=== PATIENT | male | born 1950 | race Two or more races ===

== ENCOUNTER → 2019-05-01 | Outpatient (CLI) | payer MEDICARE, MEDICAID ==
[2019-05-01 11:44] LABS: Cholesterol 221 mg/dL (< 200); HDL Cholesterol 58 mg/dL (40-59); LDL Cholesterol 136 mg/dL (< 100); Triglycerides 166 mg/dL (< 150)
== END | disposition home or self-care (01) ==
LOC: LAB 10:52
PROVIDERS: ATTEND Internal Medicine
DX: J44.9 Chronic obstructive pulmonary disease, unspecified (principal); N18.2 Chronic kidney disease, stage 2 (mild); R06.02 Shortness of breath; R73.03 Prediabetes; E78.5 Hyperlipidemia, unspecified; E55.9 Vitamin D deficiency, unspecified; Z51.81 Encounter for therapeutic drug level monitoring; Z12.11 Encounter for screening for malignant neoplasm of colon
CPT/HCPCS: 36415; 80061; 82306; 83036; 84153

== ENCOUNTER → 2019-05-07 | Outpatient (CLI) | payer MEDICARE, MEDICAID ==
[2019-05-07 12:07] LABS: Urine Bacteria NONE SEEN /hpf (None Seen); Urine Blood Negative /uL (Negative); Urine Specific Gravity 1.013 (1.001-1.035); Urine WBC <1 /hpf (0 - 3)
== END | disposition home or self-care (01) ==
LOC: LAB 11:50
PROVIDERS: ATTEND Internal Medicine
DX: Z12.11 Encounter for screening for malignant neoplasm of colon (principal); J44.9 Chronic obstructive pulmonary disease, unspecified; N18.2 Chronic kidney disease, stage 2 (mild)
CPT/HCPCS: 81001; 82270

== ENCOUNTER → 2019-11-14 | Outpatient (CLI) | payer MEDICAID, MEDICARE | END | disposition home or self-care (01) | LOC: XYW 09:56 | PROVIDERS: ATTEND Internal Medicine | DX: I08.2 Rheumatic disorders of both aortic and tricuspid valves (principal); R60.0 Localized edema | CPT/HCPCS: 93306 ==

== ENCOUNTER → 2019-11-26 | Outpatient (CLI) | payer MEDICARE ==
[2019-11-26 12:18] LABS: Basophils # (auto) 0.1 10 ^3/uL (0-0.2); Eosinophils # (auto) 0.4 10 ^3/uL (0-0.8); Eosinophils % (auto) 7.2 % (0.0-7.0); Hematocrit 42.5 % (41.0-53.0); Hemoglobin 14.1 g/dL (13.5-17.5); Lymphocytes # (auto) 1.4 10 ^3/uL (0.4-5.4); Lymphocytes % (auto) 26.1 % (10.0-50.0); Mean Corpuscular Hemoglobin 31.6 pg (28.0-32.0); Mean Corpuscular Hgb Conc. 33.2 g/dL (32.0-36.0); Mean Corpuscular Volume 95.1 fL (80.0-100.0); Monocytes # (auto) 0.5 10 ^3/uL (0-1.3); Neutrophils # (auto) 2.9 10 ^3/uL (1.6-8.6); Neutrophils % (auto) 55.7 % (37.0-80.0); Nucleated Red Blood Cells % 0.1 %; Platelet Count (auto) 166 10^3/uL (140-450); Red Blood Cells 4.47 10^6/uL (4.5-5.90); Red Cell Distribution Width 13.2 % (11.8-14.3); White Blood Cell 5.2 10^3/uL (4.4-10.8)
[2019-11-26 12:38] LABS: Albumin 3.7 g/dL (3.4-5.0); Calcium 8.5 mg/dL (8.5-10.1)
[2019-11-26 12:43] LABS: BUN/Creatinine Ratio 19.1; Bilirubin, Total 0.6 mg/dL (0.2-1.0)
== END | disposition home or self-care (01) ==
LOC: LAB 11:55
PROVIDERS: ATTEND Internal Medicine
DX: E78.5 Hyperlipidemia, unspecified (principal); J44.9 Chronic obstructive pulmonary disease, unspecified; R60.0 Localized edema; R73.03 Prediabetes
CPT/HCPCS: 36415; 80053; 80061; 82043; 85025

== ENCOUNTER → 2020-01-30 | Outpatient (CLI) | payer MEDICARE ==
[~2020-01-30] VITALS: Ht 170.2 cm; Wt 73.9 kg
[~2020-01-30] MED LIST: ADENOSINE 62 MG in GIVE UN-DILUTED 0 ML IV STA
== END | disposition home or self-care (01) ==
LOC: XY 08:58
PROVIDERS: ATTEND Internal Medicine
DX: I42.9 Cardiomyopathy, unspecified (principal)
CPT/HCPCS: 78452; 93017; A9500; J0153

== ENCOUNTER → 2020-02-05 | Outpatient (CLI) | payer MEDICARE | END | disposition home or self-care (01) | LOC: LAB 13:42 | PROVIDERS: ATTEND Internal Medicine | DX: Z12.11 Encounter for screening for malignant neoplasm of colon (principal); R73.03 Prediabetes | CPT/HCPCS: 36415; 82043; 82270; 83036 ==

== ENCOUNTER → 2020-06-17 | Outpatient (CLI) | payer MEDICARE | END | disposition home or self-care (01) | LOC: XY 08:29 | PROVIDERS: ATTEND Internal Medicine | DX: I65.03 Occlusion and stenosis of bilateral vertebral arteries (principal) | CPT/HCPCS: 93886 ==

== ENCOUNTER 2020-10-10 07:34 | Inpatient (IN) | payer MEDICARE, MEDICAID ==
[~2020-10-10] VITALS: Ht 167.6 cm; Wt 72.6 kg
[2020-10-10] MEDS ORDERED: ASPirin 81 mg TAB PO ONE (08:15)
[2020-10-10 08:58] LABS: Basophils # (auto) 0 10 ^3/uL (0-0.2); Basophils % (auto) 0.6 % (0.0-2.0); Eosinophils # (auto) 0.4 10 ^3/uL (0-0.8); Eosinophils % (auto) 7.9 % (0.0-7.0); Hematocrit 38.3 % (41.0-53.0); Hemoglobin 13.3 g/dL (13.5-17.5); Lymphocytes # (auto) 1.2 10 ^3/uL (0.4-5.4); Lymphocytes % (auto) 25.9 % (10.0-50.0); Mean Corpuscular Hemoglobin 32.4 pg (28.0-32.0); Mean Corpuscular Hgb Conc. 34.6 g/dL (32.0-36.0); Mean Corpuscular Volume 93.5 fL (80.0-100.0); Monocytes # (auto) 0.4 10 ^3/uL (0-1.3); Monocytes % (auto) 8.7 % (0.0-12.0); Neutrophils # (auto) 2.7 10 ^3/uL (1.6-8.6); Neutrophils % (auto) 56.9 % (37.0-80.0); Platelet Count (auto) 169 10^3/uL (140-450); Red Blood Cells 4.09 10^6/uL (4.5-5.90); Red Cell Distribution Width 13.5 % (11.8-14.3); White Blood Cell 4.7 10^3/uL (4.4-10.8)
[2020-10-10 09:10] LABS: Albumin 3.5 g/dL (3.4-5.0); Anion Gap 8 (5-15); Blood Urea Nitrogen 30 mg/dL (7-18); Calcium 7.7 mg/dL (8.5-10.1); Carbon Dioxide 22 mmol/L (21-32); Chloride 108 mmol/L (98-107); Glucose 111 mg/dL (74-106); Potassium 4.5 mmol/L (3.5-5.1); Sodium 138 mmol/L (136-145)
[2020-10-10 09:13] LABS: Alanine Aminotransferase 19 U/L (16-61); Aspartate Aminotransferase 21 U/L (15-37); BUN/Creatinine Ratio 38.5; GFR African American 126 mL/min; GFR Non-African American 104 mL/min
[2020-10-10 09:18] LABS: Alkaline Phosphatase 84 U/L (45-117); Bilirubin, Total 0.4 mg/dL (0.2-1.0); Total Protein 6.8 g/dL (6.4-8.2)
[2020-10-10] MEDS ORDERED: MORPHINE SULF INJ 2 MG/ML SYRINGE 1ML IV PRN (10:45)
[2020-10-10] MEDS ORDERED: NITROGLYCERIN 0.4 MG SL TAB SL PRN (10:45)
[2020-10-10] MEDS ORDERED: IOHEXOL 350 MG/ML 100ML IJ ONE (11:03)
[2020-10-10 12:00] VITALS: BP 115/66
== END 2020-10-10 12:11 | disposition left against medical advice (07) | DRG 313 ==
LOC: ER 07:34 → TELE 10:34
PROVIDERS: ADMIT Internal Medicine; ATTEND Internal Medicine
DX: R07.9 Chest pain, unspecified (principal); I24.9 Acute ischemic heart disease, unspecified; E78.5 Hyperlipidemia, unspecified; J44.9 Chronic obstructive pulmonary disease, unspecified; N40.0 Benign prostatic hyperplasia without lower urinary tract symptoms; I25.5 Ischemic cardiomyopathy; R73.03 Prediabetes; M19.09 Primary osteoarthritis, other specified site; Z53.29 Procedure and treatment not carried out because of patient's decision for other reasons; Z20.822 Contact with and (suspected) exposure to COVID-19; Z87.01 Personal history of pneumonia (recurrent)
CPT/HCPCS: 36415; 71045; 71275; 80053; 84484; 85025; 85049; 87426; 93005; G0378

== ENCOUNTER 2020-10-14 22:46 | Emergency (ER) | payer MEDICARE, MEDICAID ==
[~2020-10-14] VITALS: Ht 167.6 cm; Wt 74.8 kg
[2020-10-14 23:09] LABS: Basophils # (auto) 0 10 ^3/uL (0-0.2); Lymphocytes # (auto) 1.2 10 ^3/uL (0.4-5.4); Monocytes # (auto) 0.4 10 ^3/uL (0-1.3); Neutrophils # (auto) 2.6 10 ^3/uL (1.6-8.6)
[2020-10-14 23:11] LABS: Basophils % (auto) 0.6 % (0.0-2.0); Eosinophils # (auto) 0.2 10 ^3/uL (0-0.8); Eosinophils % (auto) 5.6 % (0.0-7.0); Hematocrit 22.7 % (41.0-53.0); Lymphocytes % (auto) 26.2 % (10.0-50.0); Mean Corpuscular Hemoglobin 32.8 pg (28.0-32.0); Mean Corpuscular Hgb Conc. 35.3 g/dL (32.0-36.0); Monocytes % (auto) 8.1 % (0.0-12.0); Neutrophils % (auto) 59.5 % (37.0-80.0); Nucleated Red Blood Cells % 0.1 %; Red Blood Cells 2.44 10^6/uL (4.5-5.90); Red Cell Distribution Width 13.6 % (11.8-14.3); White Blood Cell 4.4 10^3/uL (4.4-10.8)
[2020-10-14 23:28] LABS: INR 0.99 (0.9-1.15); Partial Thromboplastin Time 24.2 sec (23.0-31.2)
[2020-10-14 23:29] LABS: Alanine Aminotransferase 17 U/L (16-61); Anion Gap 5 (5-15); Aspartate Aminotransferase 15 U/L (15-37); Blood Urea Nitrogen 31 mg/dL (7-18); Calcium 7.5 mg/dL (8.5-10.1); Carbon Dioxide 24 mmol/L (21-32); Chloride 110 mmol/L (98-107); GFR African American 102 mL/min; GFR Non-African American 84 mL/min; Glucose 112 mg/dL (74-106); Potassium 3.8 mmol/L (3.5-5.1); Sodium 139 mmol/L (136-145)
[2020-10-15 00:03] LABS: Alkaline Phosphatase 61 U/L (45-117); Bilirubin, Total 0.3 mg/dL (0.2-1.0); Total Protein 5.7 g/dL (6.4-8.2)
[2020-10-15 06:00] VITALS: BP 103/61
== END 2020-10-15 07:13 | disposition home or self-care (01) ==
LOC: ER 22:50
DX: R07.89 Other chest pain (principal); J44.9 Chronic obstructive pulmonary disease, unspecified; I25.5 Ischemic cardiomyopathy
CPT/HCPCS: 36415; 71045; 80053; 83735; 83880; 84484; 85025; 85049; 85610; 85730; 93005

== ENCOUNTER → 2020-12-02 | Outpatient (CLI) | payer MEDICARE, MEDICAID ==
[2020-12-02 09:45] LABS: Basophils # (auto) 0 10 ^3/uL (0-0.2); Eosinophils # (auto) 0.4 10 ^3/uL (0-0.8); Lymphocytes # (auto) 1.4 10 ^3/uL (0.4-5.4); Monocytes # (auto) 0.4 10 ^3/uL (0-1.3); White Blood Cell 5.3 10^3/uL (4.4-10.8)
[2020-12-02 09:47] LABS: Basophils % (auto) 0.7 % (0.0-2.0); Hematocrit 27.7 % (41.0-53.0); Hemoglobin 8.9 g/dL (13.5-17.5); Mean Corpuscular Hemoglobin 23.8 pg (28.0-32.0); Mean Corpuscular Volume 74.4 fL (80.0-100.0); Monocytes % (auto) 8.4 % (0.0-12.0); Neutrophils % (auto) 56.9 % (37.0-80.0); Red Blood Cells 3.72 10^6/uL (4.5-5.90)
[2020-12-02 09:48] LABS: Red Cell Distribution Width 24.9 % (11.8-14.3)
[2020-12-02 09:56] LABS: Urine Bacteria NONE SEEN /hpf (None Seen); Urine Blood Negative /uL (Negative); Urine Hyaline Cast FEW /lpf (0 - 2); Urine Mucus FEW (None Seen); Urine Specific Gravity 1.021 (1.001-1.035); Urine WBC 7 /hpf (0 - 3)
[2020-12-02 10:54] LABS: Potassium 4.3 mmol/L (3.5-5.1)
[2020-12-02 11:00] LABS: Albumin 3.5 g/dL (3.4-5.0); BUN/Creatinine Ratio 18.1; Bilirubin, Total 0.4 mg/dL (0.2-1.0); Calcium 7.9 mg/dL (8.5-10.1); Total Protein 6.9 g/dL (6.4-8.2)
== END | disposition home or self-care (01) ==
LOC: LAB 09:23
PROVIDERS: ATTEND Internal Medicine
DX: I11.0 Hypertensive heart disease with heart failure (principal); I50.9 Heart failure, unspecified; R42 Dizziness and giddiness; N40.1 Benign prostatic hyperplasia with lower urinary tract symptoms
CPT/HCPCS: 36415; 80053; 81001; 84153; 85025

== ENCOUNTER → 2020-12-03 | Outpatient (CLI) | payer MEDICARE, MEDICAID | END | disposition home or self-care (01) | LOC: XYW 08:45 | PROVIDERS: ATTEND Internal Medicine | DX: I08.3 Combined rheumatic disorders of mitral, aortic and tricuspid valves (principal); R94.39 Abnormal result of other cardiovascular function study | CPT/HCPCS: 93306 ==

== ENCOUNTER → 2021-01-20 | Outpatient (CLI) | payer MEDICAID, MEDICARE ==
[2021-01-20 12:49] LABS: Basophils # (auto) 0.1 10 ^3/uL (0-0.2); Basophils % (auto) 1.5 % (0.0-2.0); Eosinophils # (auto) 0.3 10 ^3/uL (0-0.8); Hematocrit 38.6 % (41.0-53.0); Hemoglobin 12.2 g/dL (13.5-17.5); Lymphocytes # (auto) 1.3 10 ^3/uL (0.4-5.4); Lymphocytes % (auto) 29.5 % (10.0-50.0); Mean Corpuscular Hemoglobin 23.4 pg (28.0-32.0); Mean Corpuscular Hgb Conc. 31.5 g/dL (32.0-36.0); Mean Corpuscular Volume 74.3 fL (80.0-100.0); Monocytes # (auto) 0.4 10 ^3/uL (0-1.3); Neutrophils # (auto) 2.5 10 ^3/uL (1.6-8.6); White Blood Cell 4.5 10^3/uL (4.4-10.8)
[2021-01-20 12:50] LABS: Red Cell Distribution Width 32.7 % (11.8-14.3)
[2021-01-20 13:08] LABS: Cholesterol 155 mg/dL (< 200); HDL Cholesterol 45 mg/dL (40-59); LDL Cholesterol 93 mg/dL (< 100); Triglycerides 108 mg/dL (< 150)
== END | disposition home or self-care (01) ==
LOC: LAB 12:28
PROVIDERS: ATTEND Internal Medicine
DX: Z12.11 Encounter for screening for malignant neoplasm of colon (principal); E55.9 Vitamin D deficiency, unspecified; E78.5 Hyperlipidemia, unspecified
CPT/HCPCS: 36415; 80061; 83036; 85025

== ENCOUNTER 2021-02-25 06:47 | Day surgery (SDC) | payer MEDICARE, MEDICAID ==
[~2021-02-25] VITALS: Ht 165.1 cm; Wt 73.5 kg
[2021-02-25] VITALS (8 sets, daily range): BP systolic 91–151; BP diastolic 59–81
[~2021-02-25 06:47] MED LIST changes: -ADENOSINE 62 MG in GIVE UN-DILUTED 0 ML IV STA; +ALBUAER3 IN; +CAR3125T PO; +FERR-7 PO; +LACT10SO70 PO; +SACU1TAB PO; +UMEC1AER IN
[2021-02-25] MEDS ORDERED: IODIXANOL 320MG/ML 100ML BTL IV ONE ×2 (07:57→08:48)
[2021-02-25] MEDS ORDERED: LIDOCAINE 2%HCL (LOCAL ANESTH.) INJ 20ML MDV ONE (07:57)
[2021-02-25] MEDS ORDERED: HEPARIN SODIUM (PORCINE) 5000 UNITS/ML 1ML VIAL ONE ×2 (08:07→08:30)
[2021-02-25] MEDS ORDERED: ANGIOMAX 250 MG VIAL IV ONE (08:07)
[2021-02-25] MEDS ORDERED: SODIUM CHL 0.9% 0 ML ONE (08:08)
[2021-02-25] MEDS ORDERED: MIDAZOLAM HCL 2MG/2ML 2ml VIAL (1mg/ml) ONE (08:08)
[2021-02-25] MEDS ORDERED: fentaNYL CITRATE 100 MCG/2 ML VL ONE (08:08)
[2021-02-25] MEDS ORDERED: VERAPAMIL 2.5MG/ML INJ 2ML VIAL IV ONE (08:08)
[2021-02-25] MEDS ORDERED: ATOR10TA PO (09:24)
[2021-02-25] MEDS ORDERED: METF-370 PO (09:24)
== END 2021-02-25 11:45 | disposition home or self-care (01) ==
LOC: CATH 06:47
PROVIDERS: ATTEND Internal Medicine
DX: R94.39 Abnormal result of other cardiovascular function study (principal); I11.0 Hypertensive heart disease with heart failure; I50.9 Heart failure, unspecified; F32.9 Major depressive disorder, single episode, unspecified; J44.9 Chronic obstructive pulmonary disease, unspecified; Z87.891 Personal history of nicotine dependence; Z20.822 Contact with and (suspected) exposure to COVID-19
CPT/HCPCS: 93458; C1769; C1887; C1894; J1644; J2250; J3010; Q9967; U0003; 99152; 99153

== ENCOUNTER → 2021-04-06 | Outpatient (CLI) | payer MEDICARE, MEDICAID ==
[~2021-04-06] MED LIST changes: +ATOR10TA PO; -LACT10SO70 PO; +METF-370 PO
[2021-04-06 11:54] LABS: Albumin 3.8 g/dL (3.4-5.0)
[2021-04-06 11:56] LABS: Bilirubin, Direct 0.1 mg/dL (0-0.2); Bilirubin, Total 0.4 mg/dL (0.2-1.0); Total Protein 6.7 g/dL (6.4-8.2)
== END | disposition home or self-care (01) ==
LOC: LAB 10:49
PROVIDERS: ATTEND Internal Medicine
DX: E11.9 Type 2 diabetes mellitus without complications (principal); E78.5 Hyperlipidemia, unspecified
CPT/HCPCS: 36415; 80061; 80076

== ENCOUNTER → 2021-04-30 | Day surgery (SDC) | payer MEDICARE, MEDICAID ==
[2021-04-27 13:29] LABS: Basophils # (auto) 0.1 10 ^3/uL (0-0.2); Basophils % (auto) 1.6 % (0.0-2.0); Eosinophils # (auto) 0.3 10 ^3/uL (0-0.8); Eosinophils % (auto) 6.8 % (0.0-7.0); Hematocrit 41.1 % (41.0-53.0); Hemoglobin 14.1 g/dL (13.5-17.5); Lymphocytes # (auto) 1.2 10 ^3/uL (0.4-5.4); Lymphocytes % (auto) 27.4 % (10.0-50.0); Mean Corpuscular Hemoglobin 29.6 pg (28.0-32.0); Mean Corpuscular Hgb Conc. 34.2 g/dL (32.0-36.0); Mean Corpuscular Volume 86.5 fL (80.0-100.0); Monocytes # (auto) 0.4 10 ^3/uL (0-1.3); Neutrophils # (auto) 2.6 10 ^3/uL (1.6-8.6); Neutrophils % (auto) 56.2 % (37.0-80.0); Nucleated Red Blood Cells % 0.1 %; Red Blood Cells 4.75 10^6/uL (4.5-5.90); Red Cell Distribution Width 14.2 % (11.8-14.3); White Blood Cell 4.5 10^3/uL (4.4-10.8)
[2021-04-27 13:30] LABS: Urine Bacteria NONE SEEN /hpf (None Seen); Urine Blood Negative /uL (Negative); Urine Specific Gravity 1.005 (1.001-1.035); Urine WBC 1 /hpf (0 - 3)
[2021-04-27 13:45] LABS: Albumin 3.8 g/dL (3.4-5.0); Potassium 4.1 mmol/L (3.5-5.1)
[2021-04-27 13:51] LABS: BUN/Creatinine Ratio 17.2; Bilirubin, Total 0.4 mg/dL (0.2-1.0); Total Protein 6.8 g/dL (6.4-8.2)
[~2021-04-30] VITALS: Ht 172.7 cm; Wt 74.4 kg
[~2021-04-30] MED LIST changes: +CIPROFLOXACIN 400MG/200ML 200 ML IV ONE; +HYDROmorphone HCL 2 MG/ML VL IV PRN; +METOCLOPRAMIDE HCL 5MG/ml INJ 2ml VIAL IV PRN; +MIDAZOLAM HCL 2MG/2ML 2ml VIAL (1mg/ml) ONE; +MORPHINE SULFATE 4 MG/ML SYR/VIAL IV PRN; +ONDANSETRON HCL 4 MG/2 ML VIAL ONE; +PROPOFOL 10 MG/ML 20 ML IV ONE; +SODIUM CHLORIDE LOCK 10 ML ONE; +fentaNYL CITRATE 100 MCG/2 ML VL ONE
[2021-04-30 15:15] VITALS: BP 136/73
== END | disposition home or self-care (01) ==
LOC: SUR 10:10
PROVIDERS: ATTEND Urology
DX: N40.1 Benign prostatic hyperplasia with lower urinary tract symptoms (principal); N13.8 Other obstructive and reflux uropathy; F32.9 Major depressive disorder, single episode, unspecified; I50.9 Heart failure, unspecified; I10 Essential (primary) hypertension; E11.9 Type 2 diabetes mellitus without complications; E78.5 Hyperlipidemia, unspecified; J44.9 Chronic obstructive pulmonary disease, unspecified; Z87.891 Personal history of nicotine dependence; Z98.41 Cataract extraction status, right eye; Z98.42 Cataract extraction status, left eye; Z20.822 Contact with and (suspected) exposure to COVID-19
CPT/HCPCS: 36415; 52441; 52442; 80053; 81001; 85025; J0744; J2250; J2405; J2704; J3010; L8699; U0003

== ENCOUNTER → 2021-05-12 | Outpatient (CLI) | payer MEDICAID, MEDICARE ==
[~2021-05-12] MED LIST changes: -CIPROFLOXACIN 400MG/200ML 200 ML IV ONE; -HYDROmorphone HCL 2 MG/ML VL IV PRN; -METOCLOPRAMIDE HCL 5MG/ml INJ 2ml VIAL IV PRN; -MIDAZOLAM HCL 2MG/2ML 2ml VIAL (1mg/ml) ONE; -MORPHINE SULFATE 4 MG/ML SYR/VIAL IV PRN; -ONDANSETRON HCL 4 MG/2 ML VIAL ONE; -PROPOFOL 10 MG/ML 20 ML IV ONE; -SODIUM CHLORIDE LOCK 10 ML ONE; -fentaNYL CITRATE 100 MCG/2 ML VL ONE
== END | disposition home or self-care (01) ==
LOC: LAB 07:41
PROVIDERS: ATTEND Surgery
DX: Z01.812 Encounter for preprocedural laboratory examination (principal)
CPT/HCPCS: 36415; 82565; 84520

== ENCOUNTER → 2021-12-07 | Outpatient (CLI) | payer MEDICARE, MEDICAID ==
[2021-12-07 12:11] LABS: Basophils # (auto) 0 10 ^3/uL (0-0.2); Basophils % (auto) 0.7 % (0.0-2.0); Eosinophils # (auto) 0.2 10 ^3/uL (0-0.8); Eosinophils % (auto) 4.4 % (0.0-7.0); Hematocrit 41.7 % (41.0-53.0); Hemoglobin 13.7 g/dL (13.5-17.5); Lymphocytes # (auto) 1.1 10 ^3/uL (0.4-5.4); Lymphocytes % (auto) 22.4 % (10.0-50.0); Mean Corpuscular Hemoglobin 30.8 pg (28.0-32.0); Mean Corpuscular Volume 93.4 fL (80.0-100.0); Monocytes # (auto) 0.4 10 ^3/uL (0-1.3); Monocytes % (auto) 8.3 % (0.0-12.0); Neutrophils # (auto) 3.1 10 ^3/uL (1.6-8.6); Neutrophils % (auto) 64.2 % (37.0-80.0); Nucleated Red Blood Cells % 0.1 %; Red Blood Cells 4.46 10^6/uL (4.5-5.90); White Blood Cell 4.9 10^3/uL (4.4-10.8)
[2021-12-07 12:29] LABS: Urine Bacteria NONE SEEN /hpf (None Seen); Urine Blood Negative /uL (Negative); Urine Specific Gravity 1.023 (1.001-1.035); Urine WBC 2 /hpf (0 - 3)
[2021-12-07 12:51] LABS: Potassium 4.1 mmol/L (3.5-5.1)
[2021-12-07 13:16] LABS: Albumin 3.4 g/dL (3.4-5.0); BUN/Creatinine Ratio 18.8; Bilirubin, Total 0.6 mg/dL (0.2-1.0); Calcium 8.1 mg/dL (8.5-10.1); Total Protein 6.6 g/dL (6.4-8.2)
== END | disposition home or self-care (01) ==
LOC: LAB 11:24
PROVIDERS: ATTEND Internal Medicine
DX: R73.03 Prediabetes (principal); M25.551 Pain in right hip
CPT/HCPCS: 36415; 80053; 81001; 82043; 83036; 85025; 85652

== ENCOUNTER → 2022-01-04 | Outpatient (CLI) | payer MEDICARE, MEDICAID | END | disposition home or self-care (01) | LOC: XYW 13:31 | PROVIDERS: ATTEND Internal Medicine | DX: I08.0 Rheumatic disorders of both mitral and aortic valves (principal); I48.91 Unspecified atrial fibrillation; J90 Pleural effusion, not elsewhere classified; I10 Essential (primary) hypertension | CPT/HCPCS: 93306 ==

== ENCOUNTER → 2022-02-08 | Outpatient (CLI) | payer MEDICARE, MEDICAID ==
[2022-02-08 12:08] LABS: Albumin 3.4 g/dL (3.4-5.0); Calcium 8.1 mg/dL (8.5-10.1); Potassium 4.4 mmol/L (3.5-5.1)
[2022-02-08 12:14] LABS: Bilirubin, Total 0.5 mg/dL (0.2-1.0); Total Protein 6.7 g/dL (6.4-8.2)
== END | disposition home or self-care (01) ==
LOC: LAB 10:48
PROVIDERS: ATTEND Internal Medicine
DX: N40.0 Benign prostatic hyperplasia without lower urinary tract symptoms (principal); E11.9 Type 2 diabetes mellitus without complications; E55.9 Vitamin D deficiency, unspecified
CPT/HCPCS: 36415; 80053; 80061; 82306; 84153

== ENCOUNTER 2022-02-24 07:07 | Day surgery (SDC) | payer MEDICARE, MEDICAID ==
[2022-02-22 13:34] LABS: Basophils # (auto) 0.1 10 ^3/uL (0-0.2); Eosinophils # (auto) 0.3 10 ^3/uL (0-0.8); Eosinophils % (auto) 4.1 % (0.0-7.0); Hematocrit 45.6 % (41.0-53.0); Hemoglobin 15.5 g/dL (13.5-17.5); Lymphocytes # (auto) 1.4 10 ^3/uL (0.4-5.4); Lymphocytes % (auto) 18.5 % (10.0-50.0); Mean Corpuscular Hemoglobin 31.8 pg (28.0-32.0); Mean Corpuscular Hgb Conc. 34.1 g/dL (32.0-36.0); Mean Corpuscular Volume 93.3 fL (80.0-100.0); Monocytes # (auto) 0.5 10 ^3/uL (0-1.3); Monocytes % (auto) 6.9 % (0.0-12.0); Neutrophils # (auto) 5.3 10 ^3/uL (1.6-8.6); Neutrophils % (auto) 69.5 % (37.0-80.0); Nucleated Red Blood Cells % 0.1 %; Red Blood Cells 4.89 10^6/uL (4.5-5.90); Red Cell Distribution Width 13.4 % (11.8-14.3); White Blood Cell 7.6 10^3/uL (4.4-10.8)
[2022-02-22 13:50] LABS: INR 0.95 (0.9-1.15); Partial Thromboplastin Time 26.3 sec (24.6-33.4)
[2022-02-22 14:10] LABS: Albumin 3.7 g/dL (3.4-5.0); BUN/Creatinine Ratio 13.8; Bilirubin, Total 0.6 mg/dL (0.2-1.0); Calcium 8.7 mg/dL (8.5-10.1); Total Protein 7.3 g/dL (6.4-8.2)
[2022-02-24] VITALS (7 sets, daily range): BP systolic 100–167; BP diastolic 61–93
[~2022-02-24] VITALS: Ht 167.6 cm; Wt 79.8 kg
[~2022-02-24 07:07] MED LIST changes: -ATOR10TA PO; -CAR3125T PO; -FERR-7 PO; -METF-370 PO
[2022-02-24] MEDS ORDERED: HEPARIN SODIUM (PORCINE) 5000 UNITS/ML 1ML VIAL ONE (13:19)
[2022-02-24] MEDS ORDERED: ANGIOMAX 250 MG VIAL IV ONE (13:19)
[2022-02-24] MEDS ORDERED: SODIUM CHL 0.9% 0 ML ONE (13:19)
[2022-02-24] MEDS ORDERED: LIDOCAINE 2%HCL (LOCAL ANESTH.) INJ 20ML MDV ONE (13:20)
[2022-02-24] MEDS ORDERED: fentaNYL CITRATE 100 MCG/2 ML VL ONE (13:21)
[2022-02-24] MEDS ORDERED: MIDAZOLAM HCL 2MG/2ML 2ml VIAL (1mg/ml) ONE (13:21)
[2022-02-24] MEDS ORDERED: IODIXANOL 320MG/ML 100ML BTL IV ONE (13:22)
== END 2022-02-24 16:44 | disposition home or self-care (01) ==
LOC: CATH 07:07
PROVIDERS: ATTEND Internal Medicine
DX: I25.9 Chronic ischemic heart disease, unspecified (principal); Z20.822 Contact with and (suspected) exposure to COVID-19
CPT/HCPCS: 36415; 80053; 85025; 85610; 85730; 93460; C1751; C1760; C1894; J1644; J2250; J3010; Q9967; U0003; 99152; 99153

== ENCOUNTER → 2022-03-31 | Day surgery (SDC) | payer MEDICARE, MEDICAID ==
[2022-03-30 15:36] LABS: Basophils # (auto) 0 10 ^3/uL (0-0.2); Basophils % (auto) 0.5 % (0.0-2.0); Eosinophils # (auto) 0.2 10 ^3/uL (0-0.8); Hematocrit 46.9 % (41.0-53.0); Hemoglobin 15.7 g/dL (13.5-17.5); Lymphocytes # (auto) 1.4 10 ^3/uL (0.4-5.4); Mean Corpuscular Hemoglobin 31.5 pg (28.0-32.0); Mean Corpuscular Hgb Conc. 33.6 g/dL (32.0-36.0); Mean Corpuscular Volume 93.9 fL (80.0-100.0); Monocytes # (auto) 0.5 10 ^3/uL (0-1.3); Monocytes % (auto) 7.1 % (0.0-12.0); Neutrophils # (auto) 4.9 10 ^3/uL (1.6-8.6); Neutrophils % (auto) 69.4 % (37.0-80.0); Nucleated Red Blood Cells % 0.1 %; Red Blood Cells 4.99 10^6/uL (4.5-5.90); Red Cell Distribution Width 13.4 % (11.8-14.3); White Blood Cell 7.1 10^3/uL (4.4-10.8)
[2022-03-30 15:47] LABS: Urine Bacteria NONE SEEN /hpf (None Seen); Urine Blood Negative /uL (Negative); Urine Specific Gravity 1.009 (1.001-1.035); Urine WBC 2 /hpf (0 - 3)
[2022-03-30 15:49] LABS: Albumin 3.7 g/dL (3.4-5.0); BUN/Creatinine Ratio 15.7; Calcium 8.9 mg/dL (8.5-10.1); Potassium 4.1 mmol/L (3.5-5.1)
[2022-03-30 15:50] LABS: INR 0.96 (0.9-1.15); Partial Thromboplastin Time 28.1 sec (24.6-33.4)
[2022-03-30 15:52] LABS: Bilirubin, Total 0.4 mg/dL (0.2-1.0); Total Protein 7.3 g/dL (6.4-8.2)
[~2022-03-31] VITALS: Ht 165.1 cm; Wt 74.4 kg
[~2022-03-31] MED LIST changes: +BUPIVACAINE IMPLANT 3x100mg IL ONE; +DexAMETHasone SOD PHOS 10MG/1ML VIAL INJ ONE; +ETOMIDATE (2MG/ML) 20ML VIAL IV ONE; +FLUT1AER17 IN; +HYDROmorphone HCL 2 MG/ML VL/or syr IV PRN; +LABETALOL HCL 5 MG/ML 4ML SYRINGE IV PRN; +LIDOCAINE 1%-Mpf/Epinephrine 1:200,000 ONE; +LIDOCAINE 2% JELLY 11ml (GLYDO) ONE; +MEPERIDINE HCL (50 MG/ML) 1 ML VIAL ONE; +MIDAZOLAM HCL 2MG/2ML 2ml VIAL (1mg/ml) IV PRN; +MIDAZOLAM HCL 2MG/2ML 2ml VIAL (1mg/ml) ONE; +MORPHINE SULFATE 4 MG/ML SYR/VIAL IV PRN; +ONDANSETRON HCL 4 MG/2 ML VIAL IV PRN; +ONDANSETRON HCL 4 MG/2 ML VIAL ONE; +PHENYLEPHRINE HCL 10 MG/ML VL IV ONE; +SUCCINYLCHOLINE CHLORIDE 20 MG/ML 10ML VIAL IV ONE; -UMEC1AER IN; +ceFAZolin 1GM/50ML 100 ML IV ONE; +ePHEDrine SULFATE 50 MG/ML AMP IV PRN; +fentaNYL CITRATE 100 MCG/2 ML VL ONE
[2022-03-31 11:45] VITALS: BP 120/69
== END | disposition home or self-care (01) ==
LOC: SUR 08:03
PROVIDERS: ATTEND Surgery
DX: K40.90 Unilateral inguinal hernia, without obstruction or gangrene, not specified as recurrent (principal); J44.9 Chronic obstructive pulmonary disease, unspecified; Z87.891 Personal history of nicotine dependence; Z20.822 Contact with and (suspected) exposure to COVID-19
CPT/HCPCS: 36415; 49505; 80053; 81001; 85025; 85610; 85730; 86850; 86900; 86901; C1781; C9089; J0330; J0690; J1100; J2175; J2250; J2405; J3010; U0003

== ENCOUNTER → 2022-06-11 | Outpatient (CLI) | payer MEDICARE, MEDICAID ==
[~2022-06-11] MED LIST changes: -BUPIVACAINE IMPLANT 3x100mg IL ONE; -DexAMETHasone SOD PHOS 10MG/1ML VIAL INJ ONE; -ETOMIDATE (2MG/ML) 20ML VIAL IV ONE; -HYDROmorphone HCL 2 MG/ML VL/or syr IV PRN; -LABETALOL HCL 5 MG/ML 4ML SYRINGE IV PRN; -LIDOCAINE 1%-Mpf/Epinephrine 1:200,000 ONE; -LIDOCAINE 2% JELLY 11ml (GLYDO) ONE; -MEPERIDINE HCL (50 MG/ML) 1 ML VIAL ONE; -MIDAZOLAM HCL 2MG/2ML 2ml VIAL (1mg/ml) IV PRN; -MIDAZOLAM HCL 2MG/2ML 2ml VIAL (1mg/ml) ONE; -MORPHINE SULFATE 4 MG/ML SYR/VIAL IV PRN; -ONDANSETRON HCL 4 MG/2 ML VIAL IV PRN; -ONDANSETRON HCL 4 MG/2 ML VIAL ONE; -PHENYLEPHRINE HCL 10 MG/ML VL IV ONE; -SUCCINYLCHOLINE CHLORIDE 20 MG/ML 10ML VIAL IV ONE; -ceFAZolin 1GM/50ML 100 ML IV ONE; -ePHEDrine SULFATE 50 MG/ML AMP IV PRN; -fentaNYL CITRATE 100 MCG/2 ML VL ONE
[2022-06-11 11:22] LABS: Albumin 3.7 g/dL (3.4-5.0); Bilirubin, Direct 0.1 mg/dL (0-0.2); Bilirubin, Total 0.5 mg/dL (0.2-1.0); Total Protein 6.9 g/dL (6.4-8.2)
== END | disposition home or self-care (01) ==
LOC: LAB 09:52
PROVIDERS: ATTEND Internal Medicine
DX: E11.9 Type 2 diabetes mellitus without complications (principal); E78.5 Hyperlipidemia, unspecified
CPT/HCPCS: 36415; 80061; 80076; 83036

== ENCOUNTER → 2022-09-14 | Outpatient (CLI) | payer MEDICARE, MEDICAID ==
[2022-09-14 08:39] LABS: Cholesterol 139 mg/dL (< 200); HDL Cholesterol 65 mg/dL (40-59); LDL Cholesterol 66 mg/dL (< 100); Triglycerides 51 mg/dL (< 150)
== END | disposition home or self-care (01) ==
LOC: LAB 07:01
PROVIDERS: ATTEND Internal Medicine
DX: E11.9 Type 2 diabetes mellitus without complications (principal); J44.9 Chronic obstructive pulmonary disease, unspecified
CPT/HCPCS: 36415; 80061; 83036; 85379

== ENCOUNTER 2022-09-24 20:18 | Inpatient (IN) | payer MEDICARE, MEDICAID ==
[~2022-09-24] VITALS: Ht 167.6 cm; Wt 75.3 kg
[2022-09-24 21:18] LABS: Basophils # (auto) 0 10 ^3/uL (0-0.2); Basophils % (auto) 0.4 % (0.0-2.0); Eosinophils # (auto) 0 10 ^3/uL (0-0.8); Eosinophils % (auto) 0.1 % (0.0-7.0); Hematocrit 36.3 % (41.0-53.0); Hemoglobin 12.2 g/dL (13.5-17.5); Lymphocytes # (auto) 0.7 10 ^3/uL (0.4-5.4); Lymphocytes % (auto) 5.8 % (10.0-50.0); Mean Corpuscular Hemoglobin 30.2 pg (28.0-32.0); Mean Corpuscular Hgb Conc. 33.7 g/dL (32.0-36.0); Mean Corpuscular Volume 89.7 fL (80.0-100.0); Monocytes # (auto) 0.7 10 ^3/uL (0-1.3); Monocytes % (auto) 5.8 % (0.0-12.0); Neutrophils # (auto) 10.9 10 ^3/uL (1.6-8.6); Neutrophils % (auto) 87.9 % (37.0-80.0); Red Blood Cells 4.04 10^6/uL (4.5-5.90); Red Cell Distribution Width 13.6 % (11.8-14.3); White Blood Cell 12.3 10^3/uL (4.4-10.8)
[2022-09-24 21:37] LABS: Albumin 3.6 g/dL (3.4-5.0); Calcium 8.3 mg/dL (8.5-10.1)
[2022-09-24 21:41] LABS: Bilirubin, Total 0.9 mg/dL (0.2-1.0); Total Protein 7.3 g/dL (6.4-8.2)
[2022-09-24] MEDS ORDERED: LACTATED RINGER'S 1,000 ML IV ONE (23:15)
[2022-09-24] MEDS ORDERED: ALBUTEROL SULF 2.5 MG/0.5ML(0.5%) NEB SOLN NEB ONE (23:15)
[2022-09-24] MEDS ORDERED: DexAMETHasone SOD PHOS 10MG/1ML VIAL INJ IV ONE (23:15)
[2022-09-24] MEDS ORDERED: AZITHROMYCIN 500MG/ 250ML 250 ML IV ONE (23:15)
[2022-09-24] MEDS ORDERED: cefTRIAXone 1GM/50ML D5W 50 ML IV ONE (23:15)
[2022-09-24 23:43] LABS: INR 0.97 (0.9-1.15); Partial Thromboplastin Time 28.7 sec (24.6-33.4)
[2022-09-25] VITALS (7 sets, daily range): BP systolic 101–120; BP diastolic 54–73
[2022-09-25] MEDS ORDERED: ACETAMINOPHEN 325 MG TAB PO PRN (04:15)
[2022-09-25] MEDS ORDERED: IPRATROPIUM BROM 0.5 MG/2.5ML INH SOL NEB PRN (04:15)
[2022-09-25] MEDS ORDERED: DOCUSATE SOD 100 MG CAP PO PRN (04:15)
[2022-09-25] MEDS ORDERED: ALBUTEROL SULF 2.5 MG/0.5ML(0.5%) NEB SOLN NEB PRN (04:15)
[2022-09-25] MEDS ORDERED: ONDANSETRON HCL 4 MG/2 ML VIAL IV PRN (04:15)
[2022-09-25] MEDS ORDERED: HYDROcodone-ACET 5/325MG TAB PO PRN (04:15)
[2022-09-25] MEDS ORDERED: SODIUM CHLOR 0.9% PF (SALINE LOCK) 10ML VIAL/SYR IV SCH (06:00)
[2022-09-25 06:12] LABS: Basophils # (auto) 0 10 ^3/uL (0-0.2); Basophils % (auto) 0.1 % (0.0-2.0); Eosinophils # (auto) 0 10 ^3/uL (0-0.8); Eosinophils % (auto) 0.1 % (0.0-7.0); Hematocrit 33.7 % (41.0-53.0); Hemoglobin 11.4 g/dL (13.5-17.5); Lymphocytes % (auto) 8.7 % (10.0-50.0); Mean Corpuscular Hemoglobin 30.3 pg (28.0-32.0); Mean Corpuscular Hgb Conc. 33.9 g/dL (32.0-36.0); Mean Corpuscular Volume 89.3 fL (80.0-100.0); Monocytes # (auto) 0.6 10 ^3/uL (0-1.3); Monocytes % (auto) 5.4 % (0.0-12.0); Neutrophils # (auto) 9.5 10 ^3/uL (1.6-8.6); Neutrophils % (auto) 85.7 % (37.0-80.0); Nucleated Red Blood Cells % 0.1 %; Red Blood Cells 3.78 10^6/uL (4.5-5.90); Red Cell Distribution Width 13.2 % (11.8-14.3); White Blood Cell 11.1 10^3/uL (4.4-10.8)
[2022-09-25 06:20] LABS: Albumin 3.2 g/dL (3.4-5.0); BUN/Creatinine Ratio 19.4 (10.0-20.0); Calcium 8.3 mg/dL (8.5-10.1); Potassium 3.9 mmol/L (3.5-5.1)
[2022-09-25 06:22] LABS: Bilirubin, Total 1.1 mg/dL (0.2-1.0); Total Protein 6.9 g/dL (6.4-8.2)
[2022-09-25] MEDS ORDERED: NITROGLYCERIN 0.4 MG SL TAB SL PRN (06:45)
[2022-09-25] MEDS ORDERED: MORPHINE SULFATE INJ 2 MG/ml SYRG IV PRN (06:45)
[2022-09-25] MEDS ORDERED: FAMOTIDINE (10MG/ML) 2ML VL IV SCH (10:00)
[2022-09-25] MEDS: cefTRIAXone 1GM/50ML D5W 50 ML IV SCH (21:00)
[2022-09-25] MEDS: DexAMETHasone SOD PHOS 10MG/1ML VIAL INJ IV SCH ×2 (21:40→22:00)
[2022-09-25] MEDS: AZITHROMYCIN 500MG/ 250ML 250 ML IV SCH (22:00)
[2022-09-26] VITALS (7 sets, daily range): BP systolic 103–142; BP diastolic 60–74
[2022-09-26] MEDS: DexAMETHasone SOD PHOS 10MG/1ML VIAL INJ IV SCH ×4 (00:25→21:33)
[2022-09-26 05:58] LABS: Basophils # (auto) 0 10 ^3/uL (0-0.2); Eosinophils # (auto) 0 10 ^3/uL (0-0.8); Hematocrit 33.4 % (41.0-53.0); Hemoglobin 11.4 g/dL (13.5-17.5); Lymphocytes # (auto) 0.5 10 ^3/uL (0.4-5.4); Lymphocytes % (auto) 3.8 % (10.0-50.0); Mean Corpuscular Hemoglobin 30.4 pg (28.0-32.0); Mean Corpuscular Hgb Conc. 34.1 g/dL (32.0-36.0); Mean Corpuscular Volume 89.1 fL (80.0-100.0); Monocytes # (auto) 0.4 10 ^3/uL (0-1.3); Monocytes % (auto) 2.7 % (0.0-12.0); Neutrophils # (auto) 12.1 10 ^3/uL (1.6-8.6); Neutrophils % (auto) 93.5 % (37.0-80.0); Red Blood Cells 3.75 10^6/uL (4.5-5.90); Red Cell Distribution Width 13.6 % (11.8-14.3); White Blood Cell 12.9 10^3/uL (4.4-10.8)
[2022-09-26 06:27] LABS: Potassium 4.1 mmol/L (3.5-5.1)
[2022-09-26 06:39] LABS: Albumin 2.8 g/dL (3.4-5.0); BUN/Creatinine Ratio 29.8 (10.0-20.0); Bilirubin, Total 0.4 mg/dL (0.2-1.0); Calcium 8.4 mg/dL (8.5-10.1); Total Protein 6.6 g/dL (6.4-8.2)
[2022-09-26] MEDS ORDERED: IOHEXOL 300 MG/ML 100ML BOTTLE IJ ONE (07:10)
[2022-09-26] MEDS ORDERED: FEXO-226 PO (14:32)
[2022-09-26] MEDS ORDERED: ATOR10TA52 PO (14:32)
[2022-09-26] MEDS: SODIUM CHLORIDE 0.9% 1,000 ML IV SCH (18:06)
[2022-09-26] MEDS: AZITHROMYCIN 500MG/ 250ML 250 ML IV SCH (21:34)
[2022-09-26] MEDS: cefTRIAXone 1GM/50ML D5W 50 ML IV SCH (21:34)
[2022-09-27 05:00] VITALS: BP 121/77
[2022-09-27 09:00] VITALS: BP 119/62
[2022-09-27 09:10] LABS: Carcinoembryonic Antigen 2.25 ng/mL (<5.0 OR =); Free T4 (Free Thyroxine) 0.98 ng/dL (0.89-1.76)
[2022-09-27] MEDS ORDERED: GASTROGRAFIN 120 ML SOL ONE (09:16)
[2022-09-27] MEDS: SODIUM CHLORIDE 0.9% 1,000 ML IV SCH (10:21)
[2022-09-27 12:42] VITALS: BP 127/62
[2022-09-27 17:00] VITALS: BP 122/68
[2022-09-27] MEDS: cefTRIAXone 1GM/50ML D5W 50 ML IV SCH (21:08)
[2022-09-27 22:00] VITALS: BP 145/70
[2022-09-27] MEDS: AZITHROMYCIN 500MG/ 250ML 250 ML IV SCH (22:31)
[2022-09-28 03:57] VITALS: BP 145/70
[2022-09-28 05:00] VITALS: BP 118/64
[2022-09-28 05:42] LABS: Basophils # (auto) 0 10 ^3/uL (0-0.2); Basophils % (auto) 0.1 % (0.0-2.0); Eosinophils # (auto) 0 10 ^3/uL (0-0.8); Eosinophils % (auto) 0.6 % (0.0-7.0); Hematocrit 34.1 % (41.0-53.0); Hemoglobin 11.6 g/dL (13.5-17.5); Lymphocytes # (auto) 1.1 10 ^3/uL (0.4-5.4); Lymphocytes % (auto) 14.6 % (10.0-50.0); Mean Corpuscular Hemoglobin 30.4 pg (28.0-32.0); Mean Corpuscular Volume 89.4 fL (80.0-100.0); Monocytes # (auto) 0.8 10 ^3/uL (0-1.3); Monocytes % (auto) 10.3 % (0.0-12.0); Neutrophils # (auto) 5.7 10 ^3/uL (1.6-8.6); Neutrophils % (auto) 74.4 % (37.0-80.0); Red Blood Cells 3.82 10^6/uL (4.5-5.90); Red Cell Distribution Width 13.6 % (11.8-14.3); White Blood Cell 7.7 10^3/uL (4.4-10.8)
[2022-09-28 06:00] LABS: Calcium 8.4 mg/dL (8.5-10.1); Potassium 3.8 mmol/L (3.5-5.1)
[2022-09-28 06:04] LABS: BUN/Creatinine Ratio 27.3 (10.0-20.0)
[2022-09-28 09:00] VITALS: BP 105/66
[2022-09-28] MEDS ORDERED: GASTROGRAFIN 120 ML SOL ONE (11:20)
[2022-09-28 13:15] VITALS: BP 129/69
[2022-09-28 17:00] VITALS: BP 121/75
[2022-09-28 22:00] VITALS: BP_SYST 106; BP_SYST 112; BP_DIAS 67; BP_DIAS 70
[2022-09-29 05:00] VITALS: BP 123/63
[2022-09-29 09:04] VITALS: BP_SYST 131; BP_SYST 93; BP_DIAS 63; BP_DIAS 66
[2022-09-29] MEDS ORDERED: AZITHROMYCIN 250 MG TAB PO SCH (10:00)
[2022-09-29] MEDS ORDERED: KETOROLAC TROMETH 30 MG/ML 1ML VIAL IV ONE (12:00)
[2022-09-29] MEDS ORDERED: LEVO750T8 PO (12:08)
[2022-09-29] MEDS ORDERED: TRAM50TA2 PO (12:08)
[2022-09-29 13:00] VITALS: BP 118/63
== END 2022-09-29 15:00 | disposition home or self-care (01) | DRG 190 ==
LOC: ER 20:18 → OVERFLOW 09-25 06:31 → WEST WING 09-25 10:00
PROVIDERS: ADMIT Nurse Practitioner Family; ATTEND Internal Medicine
DX: J44.1 Chronic obstructive pulmonary disease with (acute) exacerbation (principal); J18.9 Pneumonia, unspecified organism; K56.609 Unspecified intestinal obstruction, unspecified as to partial versus complete obstruction; K56.1 Intussusception; J44.0 Chronic obstructive pulmonary disease with (acute) lower respiratory infection; D72.829 Elevated white blood cell count, unspecified; E78.5 Hyperlipidemia, unspecified; I10 Essential (primary) hypertension; M47.9 Spondylosis, unspecified; I25.10 Atherosclerotic heart disease of native coronary artery without angina pectoris
CPT/HCPCS: 36415; 71045; 71250; 72148; 74177; 74250; 80048; 80053; 82378; 83615; 83880; 84439; 84443; 84484; 85025; 85610; 85730; 93005; 94640; 96365; 96368; 96375; G0378; J0696; J1100; J1885; J3490

== ENCOUNTER → 2022-10-06 | Outpatient (CLI) | payer MEDICARE, MEDICAID ==
[~2022-10-06] MED LIST changes: +ATOR10TA52 PO; +FEXO-226 PO; +LEVO750T8 PO; +TRAM50TA2 PO
[2022-10-06 10:24] LABS: Urine Bacteria NONE SEEN /hpf (None Seen); Urine Blood Negative /uL (Negative); Urine Hyaline Cast MOD /lpf (0 - 2); Urine Mucus FEW (None Seen); Urine Specific Gravity 1.022 (1.001-1.035); Urine WBC 8 /hpf (0 - 3)
== END | disposition home or self-care (01) ==
LOC: LAB 10:07
PROVIDERS: ATTEND Internal Medicine
DX: N39.0 Urinary tract infection, site not specified (principal)
CPT/HCPCS: 81001; 87086

== ENCOUNTER → 2022-10-20 | Outpatient (CLI) | payer MEDICARE, MEDICAID ==
[2022-10-20 07:17] LABS: Urine Bacteria NONE SEEN /hpf (None Seen); Urine Blood Negative /uL (Negative); Urine Specific Gravity 1.008 (1.001-1.035); Urine WBC 2 /hpf (0 - 3)
[2022-10-20 08:23] LABS: Free T4 (Free Thyroxine) 0.9 ng/dL (0.89-1.76)
[2022-10-20 08:24] LABS: Free T3 3.1 pg/mL (2.3-4.2)
== END | disposition home or self-care (01) ==
LOC: LAB 06:44
PROVIDERS: ATTEND Internal Medicine
DX: D64.9 Anemia, unspecified (principal); E78.5 Hyperlipidemia, unspecified; J44.9 Chronic obstructive pulmonary disease, unspecified; R91.8 Other nonspecific abnormal finding of lung field
CPT/HCPCS: 36415; 81001; 83615; 84439; 84443; 84481

== ENCOUNTER → 2022-11-15 | Outpatient (CLI) | payer MEDICARE, MEDICAID | END | disposition home or self-care (01) | LOC: XYW 10:34 | PROVIDERS: ATTEND Internal Medicine | DX: I08.2 Rheumatic disorders of both aortic and tricuspid valves (principal); J44.9 Chronic obstructive pulmonary disease, unspecified | CPT/HCPCS: 93306 ==

== ENCOUNTER → 2022-12-07 | Outpatient (CLI) | payer MEDICARE, MEDICAID ==
[2022-12-07 07:45] LABS: Basophils # (auto) 0 10 ^3/uL (0-0.2); Basophils % (auto) 0.6 % (0.0-2.0); Eosinophils # (auto) 0.4 10 ^3/uL (0-0.8); Eosinophils % (auto) 5.4 % (0.0-7.0); Hematocrit 38.5 % (41.0-53.0); Hemoglobin 12.6 g/dL (13.5-17.5); Lymphocytes # (auto) 1.9 10 ^3/uL (0.4-5.4); Lymphocytes % (auto) 27.5 % (10.0-50.0); Mean Corpuscular Hemoglobin 27.6 pg (28.0-32.0); Mean Corpuscular Hgb Conc. 32.7 g/dL (32.0-36.0); Mean Corpuscular Volume 84.5 fL (80.0-100.0); Monocytes # (auto) 0.9 10 ^3/uL (0-1.3); Monocytes % (auto) 12.7 % (0.0-12.0); Neutrophils # (auto) 3.7 10 ^3/uL (1.6-8.6); Neutrophils % (auto) 53.8 % (37.0-80.0); Nucleated Red Blood Cells % 0.2 %; Red Blood Cells 4.56 10^6/uL (4.5-5.90); Red Cell Distribution Width 16.2 % (11.8-14.3); White Blood Cell 6.9 10^3/uL (4.4-10.8)
[2022-12-07 08:01] LABS: INR 0.98 (0.9-1.15); Partial Thromboplastin Time 28.7 SEC (24.5-34.5); Prothrombin Time 10.3 sec (9.3-11.8)
== END | disposition home or self-care (01) ==
LOC: LAB 07:17
PROVIDERS: ATTEND Internal Medicine Pulmonary Disease
DX: J44.9 Chronic obstructive pulmonary disease, unspecified (principal); R91.8 Other nonspecific abnormal finding of lung field
CPT/HCPCS: 36415; 85025; 85610; 85730

== ENCOUNTER → 2022-12-08 | Outpatient (CLI) | payer MEDICARE, MEDICAID ==
[~2022-12-08] VITALS: Ht 157.5 cm; Wt 74.4 kg
[~2022-12-08] MED LIST changes: +LIDOCAINE 2%HCL (LOCAL ANESTH.) INJ 10ml MDV ONE; +MIDAZOLAM HCL 2MG/2ML 2ml VIAL (1mg/ml) IV ONE; +fentaNYL CITRATE 100 MCG/2 ML VL IV ONE
== END | disposition home or self-care (01) ==
LOC: XYW 08:20
PROVIDERS: ATTEND Internal Medicine Pulmonary Disease
DX: R91.8 Other nonspecific abnormal finding of lung field (principal); J44.9 Chronic obstructive pulmonary disease, unspecified; F41.8 Other specified anxiety disorders; I50.9 Heart failure, unspecified; Z87.01 Personal history of pneumonia (recurrent); Z79.51 Long term (current) use of inhaled steroids; Z72.89 Other problems related to lifestyle; Z87.891 Personal history of nicotine dependence; Z79.899 Other long term (current) drug therapy
CPT/HCPCS: 10005; 71045; 71250; 77012; J2001

== ENCOUNTER 2022-12-29 08:32 | Inpatient (IN) | payer MEDICARE, MEDICAID ==
[~2022-12-29] VITALS: Ht 172.7 cm; Wt 74.6 kg
[~2022-12-29 08:32] MED LIST changes: -LIDOCAINE 2%HCL (LOCAL ANESTH.) INJ 10ml MDV ONE; -MIDAZOLAM HCL 2MG/2ML 2ml VIAL (1mg/ml) IV ONE; -fentaNYL CITRATE 100 MCG/2 ML VL IV ONE
[2022-12-29] MEDS ORDERED: MIDAZOLAM HCL 2MG/2ML 2ml VIAL (1mg/ml) IV ONE (11:15)
[2022-12-29] MEDS ORDERED: fentaNYL CITRATE 100 MCG/2 ML VL IV ONE (11:15)
[2022-12-29] MEDS ORDERED: LIDOCAINE 2%HCL (LOCAL ANESTH.) INJ 10ml MDV ONE (11:38)
[2022-12-29] MEDS ORDERED: fentaNYL CITRATE 100 MCG/2 ML VL ONE (11:47)
[2022-12-29] MEDS ORDERED: MIDAZOLAM HCL 2MG/2ML 2ml VIAL (1mg/ml) ONE (11:47)
[2022-12-29] MEDS ORDERED: cefTRIAXone SOD 1,000 MG VL ONE (13:21)
[2022-12-29] MEDS ORDERED: NITROGLYCERIN 0.4 MG SL TAB SL PRN (14:00)
[2022-12-29] MEDS ORDERED: MORPHINE SULFATE INJ 2 MG/ml SYRG IV PRN ×2 (14:00→19:45)
[2022-12-29 17:28] VITALS: RESP 18; O2SAT 99
[2022-12-29] MEDS ORDERED: HYDROcodone-ACET 5/325MG TAB PO PRN (19:45)
[2022-12-29] MEDS ORDERED: DOCUSATE SOD 100 MG CAP PO PRN (19:45)
[2022-12-29] MEDS ORDERED: ACETAMINOPHEN 325 MG TAB PO PRN (19:45)
[2022-12-29] MEDS ORDERED: ALBUTEROL SULF 2.5 MG/0.5ML(0.5%) NEB SOLN NEB PRN (19:45)
[2022-12-29] MEDS ORDERED: ONDANSETRON HCL 4 MG/2 ML VIAL IV PRN (19:45)
[2022-12-29] MEDS ORDERED: IPRATROPIUM BROM 0.5 MG/2.5ML INH SOL NEB PRN (19:45)
[2022-12-29 20:00] VITALS: BP 135/69; PULSE 55; RESP 20; TEMP 97.7
[2022-12-29 20:41] VITALS: RESP 18; O2SAT 99
[2022-12-29] MEDS: SACUBITRIL-VALSARTAN 24mg/26mg TAB PO SCH (21:51)
[2022-12-29 22:00] VITALS: BP 135/69; PULSE 55; RESP 20; TEMP 97.7; O2SAT 94
[2022-12-29] MEDS ORDERED: ATORVASTATIN 20 MG TAB PO SCH (22:00)
[2022-12-30 05:00] VITALS: BP 129/60; PULSE 54; RESP 18; TEMP 98.2; O2SAT 97
[2022-12-30 06:54] LABS: Basophils # (auto) 0 10 ^3/uL (0-0.2); Basophils % (auto) 0.7 % (0.0-2.0); Eosinophils # (auto) 0.3 10 ^3/uL (0-0.8); Eosinophils % (auto) 5.6 % (0.0-7.0); Hematocrit 37.7 % (41.0-53.0); Hemoglobin 12.4 g/dL (13.5-17.5); Lymphocytes # (auto) 1.1 10 ^3/uL (0.4-5.4); Lymphocytes % (auto) 23.8 % (10.0-50.0); Mean Corpuscular Hemoglobin 27.3 pg (28.0-32.0); Mean Corpuscular Volume 82.6 fL (80.0-100.0); Monocytes # (auto) 0.4 10 ^3/uL (0-1.3); Monocytes % (auto) 9.8 % (0.0-12.0); Neutrophils # (auto) 2.7 10 ^3/uL (1.6-8.6); Neutrophils % (auto) 60.1 % (37.0-80.0); Nucleated Red Blood Cells % 0.1 %; Red Blood Cells 4.56 10^6/uL (4.5-5.90); Red Cell Distribution Width 17.5 % (11.8-14.3); White Blood Cell 4.6 10^3/uL (4.4-10.8)
[2022-12-30 07:58] LABS: Blood Urea Nitrogen 10 mg/dL (9-23)
[2022-12-30 07:59] LABS: Albumin 3.6 g/dL (3.2-4.8); Aspartate Aminotransferase 23 U/L (13-40)
[2022-12-30 08:00] VITALS: BP 135/69; PULSE 55; RESP 20; TEMP 97.7
[2022-12-30 08:00] LABS: Alanine Aminotransferase 14 U/L (7-40); Alkaline Phosphatase 94 U/L (46-116); Anion Gap 5 (5-15); BUN/Creatinine Ratio 10.9 (10.0-20.0); Bilirubin, Total 0.6 mg/dL (0.2-1.0); Calcium 8.5 mg/dL (8.5-10.1); Carbon Dioxide 26 mmol/L (20-30); Chloride 109 mmol/L (98-107); Glucose 91 mg/dL (74-106); Potassium 4.1 mmol/L (3.5-5.1); Sodium 140 mmol/L (136-145)
[2022-12-30 09:00] VITALS: BP 148/87; PULSE 71; RESP 20; TEMP 98.2; O2SAT 93
[2022-12-30] MEDS ORDERED: FEXOFENADINE HCL 60 MG TAB PO SCH (10:00)
[2022-12-30] MEDS: SACUBITRIL-VALSARTAN 24mg/26mg TAB PO SCH (11:17)
[2022-12-30 13:00] VITALS: BP 121/64; PULSE 57; RESP 20; TEMP 98.6; O2SAT 98
[2022-12-30 13:27] VITALS: BP 148/87; PULSE 71; RESP 20; TEMP 36.8; O2SAT 93
== END 2022-12-30 15:06 | disposition home or self-care (01) | DRG 395 ==
LOC: CT 08:32 → OVERFLOW 13:55 → WEST WING 17:30
PROVIDERS: ADMIT Radiology Diagnostic Radiology; ATTEND Family Medicine
PROC: 0DB Gastrointestinal System, Excision (ICD-10-PCS; principal; 2022-12-29)
DX: K63.89 Other specified diseases of intestine (principal); I10 Essential (primary) hypertension; E78.5 Hyperlipidemia, unspecified; J44.9 Chronic obstructive pulmonary disease, unspecified; E78.00 Pure hypercholesterolemia, unspecified
CPT/HCPCS: 10005; 36415; 74150; 76942; 77012; 80053; 85025; 85610; 85730; G0378; J0696; J2001; J2250

== ENCOUNTER → 2023-02-07 | Outpatient (CLI) | payer MEDICARE, MEDICAID ==
[2023-02-07 08:04] LABS: Basophils # (auto) 0 10 ^3/uL (0-0.2); Basophils % (auto) 0.7 % (0.0-2.0); Eosinophils # (auto) 0.4 10 ^3/uL (0-0.8); Eosinophils % (auto) 5.6 % (0.0-7.0); Hematocrit 42.4 % (41.0-53.0); Hemoglobin 13.9 g/dL (13.5-17.5); Lymphocytes # (auto) 1.6 10 ^3/uL (0.4-5.4); Lymphocytes % (auto) 24.8 % (10.0-50.0); Mean Corpuscular Hemoglobin 27.4 pg (28.0-32.0); Mean Corpuscular Hgb Conc. 32.9 g/dL (32.0-36.0); Mean Corpuscular Volume 83.3 fL (80.0-100.0); Monocytes # (auto) 0.5 10 ^3/uL (0-1.3); Monocytes % (auto) 8.6 % (0.0-12.0); Neutrophils # (auto) 3.9 10 ^3/uL (1.6-8.6); Neutrophils % (auto) 60.3 % (37.0-80.0); Red Blood Cells 5.09 10^6/uL (4.5-5.90); Red Cell Distribution Width 17.9 % (11.8-14.3); White Blood Cell 6.4 10^3/uL (4.4-10.8)
[2023-02-07 08:54] LABS: Creatinine, Urine 109.67 mg/dL (30.0-125.0)
[2023-02-07 09:03] LABS: Alanine Aminotransferase 20 U/L (7-40); Albumin 4.3 g/dL (3.2-4.8); Alkaline Phosphatase 101 U/L (46-116); Anion Gap 5 (5-15); Aspartate Aminotransferase 29 U/L (13-40); Bilirubin, Total 0.5 mg/dL (0.2-1.0); Blood Urea Nitrogen 11 mg/dL (9-23); Calcium 8.8 mg/dL (8.5-10.1); Carbon Dioxide 26 mmol/L (20-30); Chloride 107 mmol/L (98-107); Cholesterol 166 mg/dL (< 200); Glucose 113 mg/dL (74-106); HDL Cholesterol 63 mg/dL (40-59); LDL Cholesterol 93 mg/dL (< 100); Potassium 4.4 mmol/L (3.5-5.1); Sodium 138 mmol/L (136-145); Total Protein 6.8 g/dL (5.7-8.2); Triglycerides 95 mg/dL (< 150)
== END | disposition home or self-care (01) ==
LOC: LAB 07:41
PROVIDERS: ATTEND Internal Medicine
DX: Z12.11 Encounter for screening for malignant neoplasm of colon (principal); E11.9 Type 2 diabetes mellitus without complications; J44.9 Chronic obstructive pulmonary disease, unspecified; C49.A3 Gastrointestinal stromal tumor of small intestine
CPT/HCPCS: 36415; 80053; 80061; 82043; 82570; 83036; 84153; 85025

== ENCOUNTER → 2023-02-24 | Outpatient (CLI) | payer MEDICARE, MEDICAID ==
[2023-02-24 07:41] LABS: Basophils # (auto) 0 10 ^3/uL (0-0.2); Basophils % (auto) 0.8 % (0.0-2.0); Eosinophils # (auto) 0.3 10 ^3/uL (0-0.8); Eosinophils % (auto) 6.3 % (0.0-7.0); Hematocrit 40.9 % (41.0-53.0); Hemoglobin 13.4 g/dL (13.5-17.5); Lymphocytes # (auto) 1.5 10 ^3/uL (0.4-5.4); Lymphocytes % (auto) 29.8 % (10.0-50.0); Mean Corpuscular Hemoglobin 27.7 pg (28.0-32.0); Mean Corpuscular Hgb Conc. 32.8 g/dL (32.0-36.0); Mean Corpuscular Volume 84.6 fL (80.0-100.0); Monocytes # (auto) 0.5 10 ^3/uL (0-1.3); Monocytes % (auto) 10.4 % (0.0-12.0); Neutrophils # (auto) 2.6 10 ^3/uL (1.6-8.6); Neutrophils % (auto) 52.7 % (37.0-80.0); Nucleated Red Blood Cells % 0.1 %; Red Blood Cells 4.83 10^6/uL (4.5-5.90); Red Cell Distribution Width 18.2 % (11.8-14.3); White Blood Cell 4.9 10^3/uL (4.4-10.8)
[2023-02-24 08:01] LABS: Alanine Aminotransferase 19 U/L (7-40); Albumin 4.3 g/dL (3.2-4.8); Alkaline Phosphatase 96 U/L (46-116); Anion Gap 6 (5-15); Aspartate Aminotransferase 27 U/L (13-40); BUN/Creatinine Ratio 16.8 (10.0-20.0); Bilirubin, Total 0.5 mg/dL (0.2-1.0); Blood Urea Nitrogen 16 mg/dL (9-23); Carbon Dioxide 27 mmol/L (20-30); Chloride 106 mmol/L (98-107); Glucose 116 mg/dL (74-106); Potassium 4.6 mmol/L (3.5-5.1); Sodium 139 mmol/L (136-145); Total Protein 6.7 g/dL (5.7-8.2)
== END | disposition home or self-care (01) ==
LOC: LAB 06:41
PROVIDERS: ATTEND Internal Medicine
DX: E11.9 Type 2 diabetes mellitus without complications (principal); I48.91 Unspecified atrial fibrillation; J44.9 Chronic obstructive pulmonary disease, unspecified; Z79.899 Other long term (current) drug therapy
CPT/HCPCS: 36415; 80053; 82306; 82607; 84443; 85025

== ENCOUNTER 2023-03-09 09:00 | Outpatient (CLI) | payer MEDICARE, MEDICAID ==
[~2023-03-09] VITALS: Ht 162.6 cm; Wt 73.9 kg
[2023-03-09] MEDS ORDERED: ADENOSINE 62 MG in GIVE UN-DILUTED 0 ML IV ONE (09:45)
== END 2023-03-09 15:59 | disposition home or self-care (01) ==
LOC: XYW 09:00
DX: Z01.810 Encounter for preprocedural cardiovascular examination (principal); I25.9 Chronic ischemic heart disease, unspecified; I35.1 Nonrheumatic aortic (valve) insufficiency; I48.91 Unspecified atrial fibrillation; I25.10 Atherosclerotic heart disease of native coronary artery without angina pectoris
CPT/HCPCS: 78452; 93017; A9500; J0153

== ENCOUNTER 2024-03-02 17:06 | Emergency (ER) | payer MEDICARE, MEDICAID ==
[~2024-03-02] VITALS: Ht 165.1 cm; Wt 76.0 kg
--- NOTE | 2024-03-02 18:39 | ED.PDOC ---
Eye-HPI HPI Comments 73-year-old male who came to ER for eye problems. Patient was doing some gardening yesterday, when some sand and rocks splattered over his left eye. Noted blurring of vision to left eye. Noted redness, swelling and pain of the left eye. Patient states he feels something inside his left eye. Chief Complaint: Eye Problem Time Seen by MD: 18:36 Primary Care Provider: FAITH Wellington Notes: Nurses Notes Allergies: Coded Allergies: No Known Drug Allergy (Verified Allergy, Unknown, 02/23/21) Home Meds Active Scripts Tramadol Hcl (Tramadol Hcl) 50 Mg Tab, 50 MG PO TIDP PRN for 7 Days, #21 TAB Prov:CHRIS RIVERA MD 09/29/22 Levofloxacin (Levaquin 750 mg) 750 Mg Tab, 500 MG PO DAILY for 7 Days, #7 TAB Prov:CHRIS RIVERA MD 09/29/22 Reported Medications Fexofenadine Hcl (Fexofenadine Hcl) 60 Mg Tab, 180 MG PO DAILY for 30 Days, MG 09/26/22 Atorvastatin Calcium (ATORVASTATIN CALCIUM) 10 Mg Tab, 1 TAB PO DAILY, #30 TAB 5 Refills 09/26/22 Vasljtyotjy-Koxgumhxddyx-Pelot (Trelegy Ellipta 200-62.5-25 Mcg/INH) 1 Aer Aer, 1 AER IN DAILY, AER 03/30/22 Albuterol Sulfate (VENTOLIN MDI) 90 Mcg Ih, 180 MCG IN Q4HPRN PRN for SHORTNESS OF BREATH, INH 02/23/21 Sacubitril-Valsartan (Entresto 24-26 mg) 1 Tab Tab, 1 TAB PO BID, TAB 02/23/21 Information Source: Patient Mode of Arrival: Ambulatory Timing: Hours Duration: Since onset Quality: Pain, Red, FB sensation, Visual Loss Eye Location: Left Lids: Red, Swelling Conjunctiva: Swelling, Foreign Body Cornea: Left eye Mouth: Normal ENT Ear Exam: Normal Nose: Normal Sinuses: Normal Oropharynx: Normal Onset: FB Exposure Associated signs and symptoms: Tearing Past Medical History PAST MEDICAL HISTORY: Asthma, COPD, High Lipids Surgical History: Denies all surgeries Family History Family History: Reviewed,noncontributory to illness Social History Smoker: Non-Smoker Alcohol: Denies ETOH Use Drugs: Denies Drug Use Lives In: Home Constitutional: denies: chills, diaphoresis, fatigue, fever, malaise, sweats, weakness, others EENTM: reports: blurred vision, eye pain (left); denies: double vision, ear bleeding, ear discharge, ear drainage, ear pain, ear ringing, eye redness, hearing loss, mouth pain, mouth swelling, nasal discharge, nose bleeding, nose congestion, nose pain, photophobia, tearing, throat pain, throat swelling, voice changes, others Respiratory: denies: cough, hemoptysis, orthopnea, SOB at rest, shortness of breath, SOB with excertion, stridor, wheezing, others Cardiovascular: denies: chest pain, dizzy spells, diaphoresis, Dyspnea on exertion, edema, irregular heart beat, left arm pain, lightheadedness, palpitations, PND, syncope, others Gastrointestinal: denies: abdomen distended, abdominal pain, blood streaked bowels, constipated, diarrhea, dysphagia, difficulty swallowing, hematemesis, melena, nausea, poor appetite, poor fluid intake, rectal bleeding, rectal pain, vomiting, others Genitourinary: denies: burning, dysuria, flank pain, frequency, hematuria, incontinence, penile discharge, penile sore, pain, testicle pain, testicle swelling, urgency, others Neurological: denies: dizziness, fainting, headache, left sided numbness, left sided weakness, numbness, paresthesia, pre-existing deficit, right sided numbness, right sided weakness, seizure, speech problems, tingling, tremors, weakness, others Musculoskeletal: denies: back pain, gout, joint pain, joint swelling, muscle pain, muscle stiffness, neck pain, others Integumetry: denies: bruises, change in color, change in hair/nails, dryness, laceration, lesions, lumps, rash, wounds, others Allergic/Immunocompromised: denies: Difficulty Healing, Frequent Infections, Hives, Itching, others Hematologic/Lymphatic: denies: anemia, blood clots, easy bleeding, easy bruising, swollen glands, others Endocrine: denies: excessive hunger, excessive sweating, excessive thirst, excessive urination, flushing, intolerance to cold, intolerance to heat, unexplained weight gain, unexplained weight loss, others Psychiatric: denies: anxiety, bipolar disorder, depression, hopeless, panic disorder, schizophrenia, sleepless, suicidal, others Physical Exam General Appearance: No Apparent Distress, Normal HEENT: Cornea (L) (abrasion), Eye Lid (L) (red. swollen), Pharynx Normal, TMs Normal Neck: Full Range of Motion, Non-Tender, Normal, Normal Inspection Respiratory: Chest Non-Tender, Lungs Clear, No Accessory Muscle Use, No Respiratory Distress, Normal Breath Sounds Cardiovascular: No Edema, No JVD, No Murmur, No Gallop, Normal Peripheral Pulses, Regular Rate/Rhythm Breast Exam: Deferred Gastrointestinal: No Organomegaly, Non Tender, No Pulsatile Mass, Normal Bowel Sounds, Soft Genitalia: Deferred Pelvic: Deferred Rectal: Deferred Extremities: No calf tenderness, Normal capillary refill, Normal inspection, Normal range of motion, Non-tender, No pedal edema Musculoskeletal : Apperance: Normal Neurologic: Alert, dock coordinator II-XII nml as Tested, No Motor Deficits, Normal Affect, Normal Mood, No Sensory Deficits Cerebellar Function: Normal Reflexes: Normal Skin: Dry, Normal Color, Warm Lymphatic: No Adenopathy Was a procedure done? Was a procedure done?: Yes Sedation Sedation?: No Foreign Body Removal Foreign body in: Eye (left) Anesthetic: Other (Tetracaine) Prep: Irrigation Procedure: Identified (sand), Removed Informed consent obtained: Yes Risks/benefits/alt described: Yes EENT DIFF Eye: Corneal Abrasion, Corneal Lacerations, Foreign Body-Conjunctiva, Foreign Body-Corneal, Foreign Body-Lid Ear: N/A Nose: N/A Mouth: N/A Sore Throat: N/A X-Ray, Labs, Meds, VS Vital Signs Date Time Temp Pulse Resp B/P (MAP) Pulse Ox O2 Delivery O2 Flow Rate FiO2 03/02/24 17:13 98.0 70 18 160/85 (110) 95 Time of 1ST Reevaluation: 18:32 Reevaluation 1ST: Unchanged Patient Education/Counseling: Diagnosis, Treatment Family Education/Counseling: Diagnosis, Treatment Departure 1 Departure Time of Disposition: 19:03 (Performed a flourescin exam on patient and he has a small corneal abrasion. Patient had a few grains of sand in his eye that I irrigated out. Will dischare with eye antibiotics and outpatient follow up.) Impression: Primary Impression: Corneal abrasion Qualified Codes: S05.02XA - Injury of conjunctiva and corneal abrasion without foreign body, left eye, initial encounter Disposition: HOME / SELF CARE / HOMELESS Condition: Stable Additional Instructions: You have a corneal abrasion. This is a scratch of your eye. You were prescribed antibiotic ointment. Please take as directed. You should follow up with an eye doctor this week. If your symptoms worsen or you have any other concerns then please return to the ER. e-Prescriptions Erythromycin (Erythromycin) 5 Mg/Gm Oin 1 MG OP QID for 5 Days, #20 OIN Prov: KARLA MATHEWS MD 03/02/24 Discharged With: Spouse Critical Care Note Critical Care Time?: No Stability Stability form required: No Heart Score Heart Score: Heart Score Response (Comments) Value History N/A 0 EKG N/A 0 Age N/A 0 Risk Factors N/A 0 Troponin N/A 0 Total 0 I personally scribed for KARLA MATHEWS MD ([email or web address]) on 03/02/24 at 18:39. Electronically submitted by Ayo Leung ([email or web address]). KARLA MATHEWS MD Mar 02, 2024 18:39
[2024-03-02] MEDS ORDERED: ERY05OO OP (19:09)
[2024-03-02] MEDS: TETRACAINE HCL 0.5% OPTH(EYE) SOLN 4ML ONE (19:18)
[2024-03-02] MEDS: FLUORESCEIN SOD OPTH TEST STRIP OP ONE (19:21)
[2024-03-02] MEDS: TETRAHYDROZOLINE HCL 0.05% OPTH(EYE)SOL OP ONE (19:21)
[2024-03-02] MEDS: TETRAHYDROZOLINE HCL 0.05% OPTH(EYE)SOL EACHEYE ONE (19:22)
[2024-03-02] MEDS: PROPARACAINE HCL 0.5% OPTH(EYE) SOL 15ML OP ONE (19:23)
[2024-03-02] MEDS: ERYTHROMY OPTH OINT 5mg/gm 1gm or 3.5gm tube OP ONE (19:24)
[2024-03-02 19:30] VITALS: BP 146/66; PULSE 59; RESP 18; TEMP 98.1; O2SAT 96
== END 2024-03-02 19:30 | disposition home or self-care (01) ==
LOC: ER 17:06
DX: T15.02XA Foreign body in cornea, left eye, initial encounter (principal); E78.5 Hyperlipidemia, unspecified; J44.9 Chronic obstructive pulmonary disease, unspecified; Z79.899 Other long term (current) drug therapy

== ENCOUNTER 2024-04-21 11:36 | Emergency (ER) | payer MEDICARE, MEDICAID ==
[~2024-04-21] VITALS: Ht 167.6 cm; Wt 77.5 kg
[~2024-04-21 11:36] MED LIST changes: +ERY05OO OP
[2024-04-21] MEDS: FLUORESCEIN SOD OPTH TEST STRIP OP ONE (13:00)
[2024-04-21] MEDS: TETRACAINE HCL 0.5% OPTH(EYE) SOLN 4ML RIGHTEYE ONE (13:00)
--- NOTE | 2024-04-21 13:08 | ED.PDOC ---
Eye-HPI HPI Comments A 74 YEAR OLD MALE PRESENTS TO THE ED WITH CHIEF COMPLAINT OF EYE REDNESS AND PAIN. PATIENT REPORTS THAT WHEN CLEANING HIS YARD YESTERDAY, HE HAD ACCIDENTALLY KICKED UP DIRT AND ROCKS INTO HIS RIGHT EYE, CAUSING PAIN AND REDNESS THAT HAS LASTED TILL NOW. PATIENT DENIES ANY BLURRED VISION, VISION LOSS, HEADACHE, DIZZINESS, OR HEAD INJURY. NO OTHER SYMPTOMS REPORTED AT THIS TIME OF CARE. Chief Complaint: Eye Problem Time Seen by MD: 13:04 Primary Care Provider: FAITH Wellington Notes: Nurses Notes, Medications, Allergies Allergies: Coded Allergies: No Known Drug Allergy (Verified Allergy, Unknown, 02/23/21) Home Meds Active Scripts Tobramycin Sulfate (Tobrex) [address], 2 DROP OP QID, #5 ML Prov:NENITA HUTTON 04/21/24 Erythromycin (Erythromycin) 5 Mg/Gm Oin, 1 MG OP QID for 5 Days, #20 OIN Prov:KARLA MATHEWS MD 03/02/24 Tramadol Hcl (Tramadol Hcl) 50 Mg Tab, 50 MG PO TIDP PRN for 7 Days, #21 TAB Prov:CHRIS RIVERA MD 09/29/22 Levofloxacin (Levaquin 750 mg) 750 Mg Tab, 500 MG PO DAILY for 7 Days, #7 TAB Prov:CHRIS RIVERA MD 09/29/22 Reported Medications Fexofenadine Hcl (Fexofenadine Hcl) 60 Mg Tab, 180 MG PO DAILY for 30 Days, MG 09/26/22 Atorvastatin Calcium (ATORVASTATIN CALCIUM) 10 Mg Tab, 1 TAB PO DAILY, #30 TAB 5 Refills 09/26/22 Npdqilkuxbw-Yejdknfilxwf-Lycfl (Trelegy Ellipta 200-62.5-25 Mcg/INH) 1 Aer Aer, 1 AER IN DAILY, AER 03/30/22 Albuterol Sulfate (VENTOLIN MDI) 90 Mcg Ih, 180 MCG IN Q4HPRN PRN for SHORTNESS OF BREATH, INH 02/23/21 Sacubitril-Valsartan (Entresto 24-26 mg) 1 Tab Tab, 1 TAB PO BID, TAB 02/23/21 Information Source: Patient Mode of Arrival: Ambulatory Timing: Days Duration: Since onset Prehospital treatment: None Quality: Pain, Red, FB sensation Eye Location: Right Lids: Normal Conjunctiva: Injection, Subconjunctival hemorrhag, Foreign Body Cornea: Normal Pupils: Normal EOM: Normal Fundus: Normal Slit lamp exam: Normal Anterior chamber: Normal Nose: Normal Sinuses: Normal Oropharynx: Normal Throat Exposed to: None History of: None Last Tetanus: UTD Associated signs and symptoms: Tearing, Photophobia Past Medical History PAST MEDICAL HISTORY: Asthma, COPD, High Lipids Surgical History: Denies all surgeries Family History Family History: Reviewed,noncontributory to illness Social History Smoker: Non-Smoker Alcohol: Denies ETOH Use Drugs: Denies Drug Use Lives In: Home Constitutional: denies: chills, diaphoresis, fatigue, fever, malaise, sweats, weakness, others EENTM: reports: eye pain, eye redness; denies: blurred vision, double vision, ear bleeding, ear discharge, ear drainage, ear pain, ear ringing, hearing loss, mouth pain, mouth swelling, nasal discharge, nose bleeding, nose congestion, nose pain, photophobia, tearing, throat pain, throat swelling, voice changes, others Respiratory: denies: cough, hemoptysis, orthopnea, SOB at rest, shortness of breath, SOB with excertion, stridor, wheezing, others Cardiovascular: denies: chest pain, dizzy spells, diaphoresis, Dyspnea on exertion, edema, irregular heart beat, left arm pain, lightheadedness, palpitations, PND, syncope, others Gastrointestinal: denies: abdomen distended, abdominal pain, blood streaked bowels, constipated, diarrhea, dysphagia, difficulty swallowing, hematemesis, melena, nausea, poor appetite, poor fluid intake, rectal bleeding, rectal pain, vomiting, others Genitourinary: denies: burning, dysuria, flank pain, frequency, hematuria, incontinence, penile discharge, penile sore, pain, testicle pain, testicle swelling, urgency, others Neurological: denies: dizziness, fainting, headache, left sided numbness, left sided weakness, numbness, paresthesia, pre-existing deficit, right sided numbness, right sided weakness, seizure, speech problems, tingling, tremors, weakness, others Musculoskeletal: denies: back pain, gout, joint pain, joint swelling, muscle pain, muscle stiffness, neck pain, others Integumetry: denies: bruises, change in color, change in hair/nails, dryness, laceration, lesions, lumps, rash, wounds, others Allergic/Immunocompromised: denies: Difficulty Healing, Frequent Infections, Hives, Itching, others Hematologic/Lymphatic: denies: anemia, blood clots, easy bleeding, easy bruising, swollen glands, others Endocrine: denies: excessive hunger, excessive sweating, excessive thirst, excessive urination, flushing, intolerance to cold, intolerance to heat, unexplained weight gain, unexplained weight loss, others Psychiatric: denies: anxiety, bipolar disorder, depression, hopeless, panic disorder, schizophrenia, sleepless, suicidal, others All Other Systems: Reviewed and Negative Physical Exam General Appearance: No Apparent Distress, Normal HEENT: Cornea (R) (WOOD LAMP EXAM: +FB AND CORNEA ABRASION, MILD RIGHT SUBCONJUNCTIVA HEMORRHAGE. ), Normal ENT Inspection, PERRL/EOMI Neck: Full Range of Motion, Non-Tender, Normal, Normal Inspection Respiratory: Chest Non-Tender, Lungs Clear, No Accessory Muscle Use, No Respiratory Distress, Normal Breath Sounds Cardiovascular: No Edema, No JVD, No Murmur, No Gallop, Normal Peripheral Pulses, Regular Rate/Rhythm Breast Exam: Deferred Gastrointestinal: No Organomegaly, Non Tender, No Pulsatile Mass, Normal Bowel Sounds, Soft Genitalia: Deferred Pelvic: Deferred Rectal: Deferred Extremities: No calf tenderness, Normal capillary refill, Normal inspection, Normal range of motion, Non-tender, No pedal edema Musculoskeletal : Apperance: Normal Neurologic: Alert, pipe caulker II-XII nml as Tested, No Motor Deficits, Normal Affect, Normal Mood, No Sensory Deficits Cerebellar Function: Normal Reflexes: Normal Skin: Dry, Normal Color, Warm Peripheral Pulses: 2+ carotid (R), 2+ carotid (L) Lymphatic: No Adenopathy Was a procedure done? Was a procedure done?: Yes Sedation Sedation?: No Foreign Body Removal Foreign body in: Eye Anesthetic: Other (TETRACAINE) Prep: Prep, Saline, Irrigation (RIGHT WYE WITH NORMAL SALINE 50ML. ) Procedure: Identified (FB OF RIGHT EYE CORNEA. ), Removed (FB OF RIGHT EYE WITH A NEEDLE SCRAPING, TOTAL FB REMOVED. ) Informed consent obtained: No Risks/benefits/alt described: Yes Notes TINY FOREIGN BODY FOUND USING SLIT LAMP. USED 18G NEEDLE SCRAPING AND REMOVED FOREIGN BODY FROM CORNEA. EENT DIFF Eye: Conjunctivitis, Corneal Abrasion, Foreign Body-Conjunctiva, Foreign Body-Corneal X-Ray, Labs, Meds, VS Vital Signs Date Time Temp Pulse Resp B/P (MAP) Pulse Ox O2 Delivery O2 Flow Rate FiO2 04/21/24 11:49 98.2 83 8 145/82 (103) 96 X-Ray, Labs, Meds, VS Comment EXTERNAL MEDICAL RECORDS REVIEWED: [NONE] INDEPENDENT HISTORIANS: [NONE] SOCIAL DETERMINANTS OF HEALTH: [NONE] LABS ORDERED: NONE REVIEWED AND INTERPRETED RESULTS: NONE IMAGING ORDERED: NONE TREATMENTS ORDERED: SLIT LAMP TEST WITH TETRACAINE 0.5% EYE DROP AND FLUORESCEIN EYE DROP. PROCEDURES PERFORMED: NONE CRITICAL CARE TIME: NONE I HAVE DISCUSSED THE PATIENT WITH THE ATTENDING PHYSICIAN [PHYSICIAN'S NAME] AND HE AGREES WITH THE PATIENT'S PLAN OF CARE AND DISPOSITION. GIVEN THE HISTORY AND PRESENT ILLNESS OF THE PATIENT, AFTER REVIEWING LABS, IMAGING, AND COURSE OF TREATMENT ADMINISTERED DURING THEIR ED VISIT, THERE IS LOW SUSPICION FOR RED FLAG FINDINGS. BASED ON HISTORY OF PRESENT ILLNESS, AND PHYSICAL EXAM, PATIENT WILL BE DISCHARGED HOME. DISCUSSED PLAN FOR DISCHARGE HOME WITH RX []. MEDICATION WARNINGS GIVEN. SHARED DECISION MAKING: DISCUSSED WITH PATIENT THAT THEIR WORKUP WAS NORMAL. PATIENT INSTRUCTED TO FOLLOW UP WITH PRIMARY CARE PROVIDER IN 1-2 DAYS FOR RE- EVALUATION OF SYMPTOMS. PATIENT VERBALIZES UNDERSTANDING TO RETURN TO ED FOR NEW OR WORSENING SYMPTOMS OR IF FOLLOW UP WITH PCP CANNOT BE OBTAINED. PATIENT FEELS COMFORTABLE GOING HOME AT THIS TIME. ALL QUESTIONS ADDRESSED AT TIME OF DISCHARGE. Time of 1ST Reevaluation: 13:48 Reevaluation 1ST: Improved Patient Education/Counseling: Diagnosis, Treatment, Need For Follow Up Family Education/Counseling: Diagnosis, Treatment, No Family Present Medical Screening: No EMC Exist At This Time Departure 1 Departure Time of Disposition: 14:00 Impression: Primary Impression: Corneal abrasion Qualified Codes: S05.01XA - Injury of conjunctiva and corneal abrasion without foreign body, right eye, initial encounter Additional Impression: History of foreign body in eye Disposition: HOME / SELF CARE / HOMELESS Condition: Stable Additional Instructions: FOLLOW-UP WITH PCP IN 1 TO 2 DAYS. TAKE MEDICATIONS PRESCRIBED. RETURN TO ED FOR ANY NEW OR WORSENING SYMPTOMS. e-Prescriptions Tobramycin Sulfate (Tobrex) [address] 2 DROP OP QID, #5 ML Prov: NENITA HUTTON 04/21/24 Discharged With: Self Critical Care Note Critical Care Time?: No Stability Stability form required: No Heart Score Heart Score: Heart Score Response (Comments) Value History N/A 0 EKG N/A 0 Age N/A 0 Risk Factors N/A 0 Troponin N/A 0 Total 0 I personally scribed for NENITA HUTTON ([email or web address]) on 04/21/24 at 13:08. Electronically submitted by Lucien Vargas ([email or web address]). I personally scribed for NENITA HUTTON ([email or web address]) on 04/21/24 at 13:12. Electronically submitted by Lucien Vargas ([email or web address]). I personally scribed for NENITA HUTTON ([email or web address]) on 04/21/24 at 13:38. Electronically submitted by Lucien Vargas ([email or web address]). NENITA HUTTON Apr 21, 2024 13:08
[2024-04-21] MEDS ORDERED: TOB03OS OP (13:38)
[2024-04-21 13:55] VITALS: BP 140/80; PULSE 83; RESP 16; TEMP 98.2; O2SAT 97
== END 2024-04-21 13:49 | disposition home or self-care (01) ==
LOC: ER 11:44
DX: S05.01XA Injury of conjunctiva and corneal abrasion without foreign body, right eye, initial encounter (principal); J44.89 Other specified chronic obstructive pulmonary disease; Z79.899 Other long term (current) drug therapy; E78.5 Hyperlipidemia, unspecified; Z98.890 Other specified postprocedural states; W44.F9XA Other object of natural or organic material, entering into or through a natural orifice, initial encounter; Y93.89 Activity, other specified; Y92.89 Other specified places as the place of occurrence of the external cause; Y99.8 Other external cause status
CPT/HCPCS: 65222

== ENCOUNTER 2024-04-29 00:27 | Emergency (ER) | payer MEDICARE, MEDICAID ==
[~2024-04-29] VITALS: Ht 167.6 cm; Wt 76.7 kg
[~2024-04-29 00:27] MED LIST changes: +TOB03OS OP
--- NOTE | 2024-04-29 01:10 | ECG ---
[facility] Test Date: 2024-04-29 Test Time: 00:50:15 Pat Name: DARRIAN SUBRAMANIAN Department: ER Room: Gender: M [employer]er [employer]: MILDRED : 1950 Requested By: CHRISTY RAWLS Order Number: [id number] Reading MD: Measurements Intervals [place] Rate: 78 P: 55 DE: 170 QRS: -31 QRSD: 88 T: 34 QT: 365 QTc: 416 Interpretive Statements Sinus rhythm Left ventricular hypertrophy Nonspecific T abnormalities, lateral leads Please click the below link to view image of tracing.
[2024-04-29] MEDS: ALBUTEROL SULF 2.5 MG/0.5ML(0.5%) NEB SOLN NEB ONE (01:15)
[2024-04-29] MEDS: IPRATROPIUM BROM 0.5 MG/2.5ML INH SOL NEB ONE (01:15)
--- NOTE | 2024-04-29 02:29 | ED.PDOC ---
History of Present Illness HPI Comments 74-year-old male who came to ER for flu like symptoms. Patient has been in experiencing flu-like symptoms for the past several days, with dry nonproductive cough with congestion and shortness a breath. Denies any acute chest pains. Patient has history of recent pneumonia and he is concerned that he might get it again. Patient confirms nausea as well as possible subjective fever. Patient denies any vomiting. Vital signs were stable on arrival. Chief Complaint: Flu like Time Seen by MD: 02:29 Primary Care Provider: FAITH Reviewed Notes: Nurses Notes Allergies: Coded Allergies: No Known Drug Allergy (Verified Allergy, Unknown, 02/23/21) Home Meds Active Scripts Tobramycin Sulfate (Tobrex) [address], 2 DROP OP QID, #5 ML Prov:NENITA HUTTON 04/21/24 Erythromycin (Erythromycin) 5 Mg/Gm Oin, 1 MG OP QID for 5 Days, #20 OIN Prov:KARLA MATHEWS MD 03/02/24 Tramadol Hcl (Tramadol Hcl) 50 Mg Tab, 50 MG PO TIDP PRN for 7 Days, #21 TAB Prov:CHRIS RIVERA MD 09/29/22 Levofloxacin (Levaquin 750 mg) 750 Mg Tab, 500 MG PO DAILY for 7 Days, #7 TAB Prov:CHRIS RIVERA MD 09/29/22 Reported Medications Fexofenadine Hcl (Fexofenadine Hcl) 60 Mg Tab, 180 MG PO DAILY for 30 Days, MG 09/26/22 Atorvastatin Calcium (ATORVASTATIN CALCIUM) 10 Mg Tab, 1 TAB PO DAILY, #30 TAB 5 Refills 09/26/22 Qnursyzezqt-Fieqjmezlfyy-Zjyou (Trelegy Ellipta 200-62.5-25 Mcg/INH) 1 Aer Aer, 1 AER IN DAILY, AER 03/30/22 Albuterol Sulfate (VENTOLIN MDI) 90 Mcg Ih, 180 MCG IN Q4HPRN PRN for SHORTNESS OF BREATH, INH 02/23/21 Sacubitril-Valsartan (Entresto 24-26 mg) 1 Tab Tab, 1 TAB PO BID, TAB 02/23/21 Information Source: Patient, Spouse Mode of Arrival: Ambulatory Severity: Moderate Timing: Hours Duration: Since onset Prehospital treatment: None Past Medical History PAST MEDICAL HISTORY: Asthma, CAD, COPD, High Lipids Past Medical History (Other): Pneumonia Surgical History: Hernia Repair, PTCA, Denies all surgeries Family History Family History: Reviewed,noncontributory to illness Social History Smoker: Non-Smoker Alcohol: Denies ETOH Use Drugs: Denies Drug Use Lives In: Home Constitutional: reports: weakness; denies: chills, diaphoresis, fatigue, fever, malaise, sweats, others EENTM: reports: nose congestion; denies: blurred vision, double vision, ear bleeding, ear discharge, ear drainage, ear pain, ear ringing, eye pain, eye redness, hearing loss, mouth pain, mouth swelling, nasal discharge, nose bleeding, nose pain, photophobia, tearing, throat pain, throat swelling, voice changes, others Respiratory: reports: cough, SOB at rest, shortness of breath; denies: hemoptysis, orthopnea, SOB with excertion, stridor, wheezing, others Cardiovascular: denies: chest pain, dizzy spells, diaphoresis, Dyspnea on exertion, edema, irregular heart beat, left arm pain, lightheadedness, palpitations, PND, syncope, others Gastrointestinal: denies: abdomen distended, abdominal pain, blood streaked bowels, constipated, diarrhea, dysphagia, difficulty swallowing, hematemesis, melena, nausea, poor appetite, poor fluid intake, rectal bleeding, rectal pain, vomiting, others Genitourinary: denies: burning, dysuria, flank pain, frequency, hematuria, incontinence, penile discharge, penile sore, pain, testicle pain, testicle swelling, urgency, others Neurological: denies: dizziness, fainting, headache, left sided numbness, left sided weakness, numbness, paresthesia, pre-existing deficit, right sided numbness, right sided weakness, seizure, speech problems, tingling, tremors, weakness, others Musculoskeletal: denies: back pain, gout, joint pain, joint swelling, muscle pain, muscle stiffness, neck pain, others Integumetry: denies: bruises, change in color, change in hair/nails, dryness, laceration, lesions, lumps, rash, wounds, others Allergic/Immunocompromised: denies: Difficulty Healing, Frequent Infections, Hives, Itching, others Hematologic/Lymphatic: denies: anemia, blood clots, easy bleeding, easy bruising, swollen glands, others Endocrine: denies: excessive hunger, excessive sweating, excessive thirst, excessive urination, flushing, intolerance to cold, intolerance to heat, unexplained weight gain, unexplained weight loss, others Psychiatric: denies: anxiety, bipolar disorder, depression, hopeless, panic disorder, schizophrenia, sleepless, suicidal, others Physical Exam General Appearance: Moderate Distress (Patient presents as a moderately ill 74-year-old male.), Normal HEENT: Normal ENT Inspection, Pharynx Normal, TMs Normal Neck: Full Range of Motion, Non-Tender, Normal, Normal Inspection Respiratory: Chest Non-Tender, No Accessory Muscle Use, No Respiratory Distress, Wheezing (Mild right middle lobe wheeze as well as mild right upper lobe rhonchi.) Cardiovascular: No Edema, No JVD, No Murmur, No Gallop, Normal Peripheral Pulses, Regular Rate/Rhythm Breast Exam: Deferred Gastrointestinal: No Organomegaly, Non Tender, No Pulsatile Mass, Normal Bowel Sounds, Soft Genitalia: Deferred Pelvic: Deferred Rectal: Deferred Extremities: No calf tenderness, Normal capillary refill, Normal inspection, Normal range of motion, Non-tender, No pedal edema Musculoskeletal : Apperance: Normal Neurologic: Alert, No Motor Deficits, Normal Affect, Normal Mood, No Sensory Deficits Cerebellar Function: Normal Reflexes: Normal Skin: Dry, Normal Color, Warm Lymphatic: No Adenopathy Was a procedure done? Was a procedure done?: No Differential Dx Considerations may include: Influenza a/B, COVID-19, pneumonia, bronchitis, viral upper respiratory illness X-Ray, Labs, Meds, VS Vital Signs Date Time Temp Pulse Resp B/P (MAP) Pulse Ox O2 Delivery O2 Flow Rate FiO2 04/29/24 01:14 20 94 Room Air* 0 21 04/29/24 00:50 78 04/29/24 00:50 99.0 89 16 134/74 (94) 95 Lab Test 04/29/24 00:45 Range/Units Influenza Type A Antigen Negative Negative Influenza Type B Antigen Negative Negative SARS-CoV-2 Antigen (Rapid) Negative NEGATIVE Current Medications Medications (Trade) Dose Ordered Sig/Estella Route Start Time Stop Time Status Last Admin Albuterol (Ventolin Medneb) 2.5 mg ONCE ONCE NEB 04/29/24 01:15 04/29/24 01:16 DC 04/29/24 01:15 Ipratropium [place] (Atrovent Medneb) 0.5 mg ONCE ONCE NEB 04/29/24 01:15 04/29/24 01:16 DC 04/29/24 01:15 X-Ray, Labs, Meds, VS Comment All studies performed in the ED were evaluated by me personally. Swabs studies were unremarkable for COVID or influenza. Due to the auscultated congestion, we will treat the patient empirically for a bacterial bronchitis. Patient was given 1st dose of antibiotics prior to discharge. Advised patient utilize antibiotics as directed. Time of 1ST Reevaluation: 03:15 Reevaluation 1ST: Improved Consultation: PCP Patient Education/Counseling: Diagnosis, Treatment Family Education/Counseling: Diagnosis, Treatment Departure 1 Departure Time of Disposition: 03:16 Impression: Primary Impression: Bronchitis Disposition: HOME / SELF CARE / HOMELESS Condition: Stable Additional Instructions: Advised patient utilize antibiotics as directed until completion as well as additional medication as needed. e-Prescriptions Ondansetron Odt 4MG Tab (ZOFRAN PO) 4 Mg Tb 4 MG PO Q6HP PRN, #15 TAB ODT TAB-DISSOLVE IN MOUTH, THEN SWALLOW Prov: CHRISTY RAWLS 04/29/24 Acetaminophen (Acetaminophen) 500 Mg Tab 500 MG PO Q4HP PRN, #30 TAB Prov: CHRISTY RAWLS 04/29/24 Albuterol Sulfate (Albuterol Sulfate Hfa) 108 Mcg/Act Aer 108 MCG IN Q4HP PRN, #1 AER Prov: CHRISTY RAWLS 04/29/24 Azithromycin (Azithromycin) 500 Mg Tab 1 TAB PO DAILY for 4 Days, #4 TAB Prov: CHRISTY RAWLS 04/29/24 Discharged With: Self, Spouse Critical Care Note Critical Care Time?: No Stability Stability form required: No Heart Score Heart Score: Heart Score Response (Comments) Value History N/A 0 EKG N/A 0 Age N/A 0 Risk Factors N/A 0 Troponin N/A 0 Total 0 I personally scribed for CHRISTY RAWLS ([email or web address]) on 04/29/24 at 02:29. Electronically submitted by Ayo Leung ([email or web address]). CHRISTY RAWLS Apr 29, 2024 02:29
[2024-04-29 02:42] LABS: COVID19 ANTIGEN SOFIA FIA NEGATIVE (NEGATIVE); Rapid Influenza A Negative (Negative); Rapid Influenza B Negative (Negative)
[2024-04-29] MEDS ORDERED: ACET500T58 PO (03:17)
[2024-04-29] MEDS ORDERED: AZIT500T66 PO (03:17)
[2024-04-29] MEDS ORDERED: ALBU108A5 IN (03:17)
[2024-04-29] MEDS ORDERED: ZOFR4T PO (03:18)
[2024-04-29 03:23] VITALS: BP 108/89; PULSE 82; RESP 18; TEMP 98.5; O2SAT 95
[2024-04-29] MEDS: DexAMETHasone SOD PHOS 10MG/1ML VIAL INJ IM ONE (03:29)
[2024-04-29] MEDS: AZITHROMYCIN 250 MG TAB PO ONE (03:29)
[2024-04-29] MEDS: ONDANSETRON ODT 4 MG TAB PO ONE (03:29)
[2024-04-29 05:38] LABS: Urine Bacteria MANY /hpf (None Seen); Urine Blood Negative /uL (Negative); Urine Budding Yeast FEW /hpf (None Seen); Urine Clarity Turbid (Clear); Urine Color Light-Yellow (Yellow); Urine Mucus FEW (None Seen); Urine Protein, UAD 1+ (Negative); Urine Specific Gravity 1.016 (1.001-1.035); Urine Sperm PRESENT /hpf (None Seen); Urine Squamous Epithelial Cell None Seen /hpf (<5); Urine Urobilinogen Normal (Negative); Urine WBC 2 /hpf (0 - 3)
== END 2024-04-29 03:38 | disposition home or self-care (01) ==
LOC: ER 00:27
DX: J40 Bronchitis, not specified as acute or chronic (principal); I25.10 Atherosclerotic heart disease of native coronary artery without angina pectoris; J44.9 Chronic obstructive pulmonary disease, unspecified; E78.5 Hyperlipidemia, unspecified; Z20.822 Contact with and (suspected) exposure to COVID-19
CPT/HCPCS: 36415; 81001; 87426; 87804; 93005; 94640; 96372; 99284; J1100; Q0162

== ENCOUNTER → 2024-04-30 | Outpatient (CLI) | payer MEDICARE, MEDICAID ==
[~2024-04-30] MED LIST changes: +ACET500T58 PO; +ALBU108A5 IN; +AZIT500T66 PO; +ZOFR4T PO
[2024-04-30 10:19] LABS: Alanine Aminotransferase 21 U/L (7-40); Albumin 4.3 g/dL (3.2-4.8); Alkaline Phosphatase 114 U/L (46-116); Anion Gap 7 (5-15); Aspartate Aminotransferase 30 U/L (13-40); BUN/Creatinine Ratio 21.7 (10.0-20.0); Blood Urea Nitrogen 23 mg/dL (9-23); Calcium 9.8 mg/dL (8.7-10.4); Carbon Dioxide 27 mmol/L (20-31); Chloride 105 mmol/L (98-107); Potassium 4.5 mmol/L (3.5-5.1); Sodium 139 mmol/L (136-145); Total Protein 6.8 g/dL (5.7-8.2)
[2024-04-30 10:21] LABS: Glucose 111 mg/dL (74-106)
[2024-04-30 10:27] LABS: Bilirubin, Total 0.3 mg/dL (0.2-1.0)
[2024-04-30 10:41] LABS: Basophils # (auto) 0 10 ^3/uL (0-0.2); Basophils % (auto) 0.3 % (0.0-2.0); Eosinophils # (auto) 0 10 ^3/uL (0-0.8); Eosinophils % (auto) 0.5 % (0.0-7.0); Hematocrit 43.4 % (41.0-53.0); Hemoglobin 14.8 g/dL (13.5-17.5); Lymphocytes % (auto) 25.5 % (10.0-50.0); Mean Corpuscular Hemoglobin 32.4 pg (28.0-32.0); Mean Corpuscular Volume 95.2 fL (80.0-100.0); Monocytes # (auto) 0.7 10 ^3/uL (0-1.3); Monocytes % (auto) 9.3 % (0.0-12.0); Neutrophils # (auto) 5.1 10 ^3/uL (1.6-8.6); Neutrophils % (auto) 64.4 % (37.0-80.0); Nucleated Red Blood Cells % 0.1 %; Platelet Count (auto) 211 10^3/uL (140-450); Red Blood Cells 4.56 10^6/uL (4.5-5.90); Red Cell Distribution Width 13.9 % (11.8-14.3); White Blood Cell 7.9 10^3/uL (4.4-10.8)
== END | disposition home or self-care (01) ==
LOC: LAB 09:06
PROVIDERS: ATTEND Internal Medicine
DX: E78.5 Hyperlipidemia, unspecified (principal); J44.9 Chronic obstructive pulmonary disease, unspecified
CPT/HCPCS: 36415; 80053; 85025

== ENCOUNTER 2024-12-10 09:14 | Outpatient (CLI) | payer MEDICARE, MEDICAID ==
[2024-12-10] MEDS ORDERED: ALBUTEROL SULF 2.5 MG/0.5ML(0.5%) NEB SOLN ONE (09:31)
== END 2024-12-10 17:00 | disposition home or self-care (01) ==
LOC: RT 09:14
PROVIDERS: ATTEND Internal Medicine Pulmonary Disease
DX: J44.9 Chronic obstructive pulmonary disease, unspecified (principal); R06.00 Dyspnea, unspecified
CPT/HCPCS: 94060; 94727; 94729

== ENCOUNTER 2024-12-17 11:29 | Inpatient (IN) | payer MEDICARE, MEDICAID ==
[~2024-12-17] VITALS: Ht 157.5 cm; Wt 76.1 kg
--- NOTE | 2024-12-17 11:58 | ED.PDOC ---
HPI Comments 74 y/o M, with PMHx of cancer, asthma, CAD, HLD, and COPD presents to the ED for CC of chest pain. EMS reports, patient is coming from home where he c/o substernal non-radiating chest pain x3days. Per patient's relative, patient has had additional associated symptoms of bilateral leg swelling, shortness of breath, and a non-productive cough. Patient denies fatigue, weakness, numbness, tingling, or blurred vision. No other symptoms or modifying factors are present at this time. Chief Complaint: Chest Pain Time Seen by MD: 11:50 Primary Care Provider: FAITH Reviewed Notes: Nurses Notes, Sales Engagement Manager Notes, Medications, Allergies Allergies: Coded Allergies: No Known Drug Allergy (Verified Allergy, Unknown, 02/23/21) Home Meds Active Scripts Ondansetron Odt 4MG Tab (ZOFRAN PO) 4 Mg Tb, 4 MG PO Q6HP PRN, #15 TAB ODT TAB-DISSOLVE IN MOUTH, THEN SWALLOW Prov:CHRISTY RAWLS PAC 04/29/24 Acetaminophen (Acetaminophen) 500 Mg Tab, 500 MG PO Q4HP PRN, #30 TAB Prov:CHRISTY RAWLS PAC 04/29/24 Albuterol Sulfate (Albuterol Sulfate Hfa) 108 Mcg/Act Aer, 108 MCG IN Q4HP PRN, #1 AER Prov:CHRISTY RAWLS PAC 04/29/24 Azithromycin (Azithromycin) 500 Mg Tab, 1 TAB PO DAILY for 4 Days, #4 TAB Prov:CHRISTY RAWLS PAC 04/29/24 Tobramycin Sulfate (Tobrex) [address], 2 DROP OP QID, #5 ML Prov:NENITA HUTTON 04/21/24 Erythromycin (Erythromycin) 5 Mg/Gm Oin, 1 MG OP QID for 5 Days, #20 OIN Prov:KARLA MATHEWS MD 03/02/24 Tramadol Hcl (Tramadol Hcl) 50 Mg Tab, 50 MG PO TIDP PRN for 7 Days, #21 TAB Prov:CHRIS RIVERA MD 09/29/22 Levofloxacin (Levaquin 750 mg) 750 Mg Tab, 500 MG PO DAILY for 7 Days, #7 TAB Prov:CHRIS RIVERA MD 09/29/22 Reported Medications Fexofenadine Hcl (Fexofenadine Hcl) 60 Mg Tab, 180 MG PO DAILY for 30 Days, MG 09/26/22 Atorvastatin Calcium (ATORVASTATIN CALCIUM) 10 Mg Tab, 1 TAB PO DAILY, #30 TAB 5 Refills 09/26/22 Ccctconyfis-Ucgboauczkzk-Usdkf (Trelegy Ellipta 200-62.5-25 Mcg/INH) 1 Aer Aer, 1 AER IN DAILY, AER 03/30/22 Albuterol Sulfate (VENTOLIN MDI) 90 Mcg Ih, 180 MCG IN Q4HPRN PRN for SHORTNESS OF BREATH, INH 02/23/21 Sacubitril-Valsartan (Entresto 24-26 mg) 1 Tab Tab, 1 TAB PO BID, TAB 02/23/21 Information Source: Patient, Relative, Emergency Med Personnel Mode of Arrival: EMS Severity: Moderate Timing: Days Duration: Since onset Prehospital treatment: Other (aspirin) Location: Substernal Radiation: No Radiation Onset: At Rest Cardiac Risk Factors: Hyperlipidemia PE Risk Factors: None History of: None Modifying Factors: Nothing Associated Signs and Symptoms: SOB Past Medical History PAST MEDICAL HISTORY: Asthma, CAD, Cancer, COPD, High Lipids Surgical History: Hernia Repair, PTCA, Denies all surgeries Family History Family History: Reviewed,noncontributory to illness Social History Smoker: Non-Smoker Alcohol: Denies ETOH Use Drugs: Denies Drug Use Lives In: Home Constitutional: denies: chills, diaphoresis, fatigue, fever, malaise, sweats, weakness, others EENTM: denies: blurred vision, double vision, ear bleeding, ear discharge, ear drainage, ear pain, ear ringing, eye pain, eye redness, hearing loss, mouth pain, mouth swelling, nasal discharge, nose bleeding, nose congestion, nose pain, photophobia, tearing, throat pain, throat swelling, voice changes, others Respiratory: denies: cough, hemoptysis, orthopnea, SOB at rest, shortness of breath, SOB with excertion, stridor, wheezing, others Cardiovascular: reports: chest pain; denies: dizzy spells, diaphoresis, Dyspnea on exertion, edema, irregular heart beat, left arm pain, lightheadedness, palpitations, PND, syncope, others Gastrointestinal: denies: abdomen distended, abdominal pain, blood streaked bowels, constipated, diarrhea, dysphagia, difficulty swallowing, hematemesis, melena, nausea, poor appetite, poor fluid intake, rectal bleeding, rectal pain, vomiting, others Genitourinary: denies: burning, dysuria, flank pain, frequency, hematuria, incontinence, penile discharge, penile sore, pain, testicle pain, testicle swelling, urgency, others Neurological: denies: dizziness, fainting, headache, left sided numbness, left sided weakness, numbness, paresthesia, pre-existing deficit, right sided numbness, right sided weakness, seizure, speech problems, tingling, tremors, weakness, others Musculoskeletal: denies: back pain, gout, joint pain, joint swelling, muscle pain, muscle stiffness, neck pain, others Integumetry: denies: bruises, change in color, change in hair/nails, dryness, laceration, lesions, lumps, rash, wounds, others Allergic/Immunocompromised: denies: Difficulty Healing, Frequent Infections, Hives, Itching, others Hematologic/Lymphatic: denies: anemia, blood clots, easy bleeding, easy bruising, swollen glands, others Endocrine: denies: excessive hunger, excessive sweating, excessive thirst, excessive urination, flushing, intolerance to cold, intolerance to heat, unexplained weight gain, unexplained weight loss, others Psychiatric: denies: anxiety, bipolar disorder, depression, hopeless, panic disorder, schizophrenia, sleepless, suicidal, others All Other Systems: Reviewed and Negative Physical Exam General Appearance: Moderate Distress HEENT: Normal ENT Inspection, Pharynx Normal, TMs Normal Neck: Full Range of Motion, Non-Tender, Normal, Normal Inspection Respiratory: Chest Non-Tender, Lungs Clear, No Accessory Muscle Use, No Respiratory Distress, Normal Breath Sounds Cardiovascular: No Edema, No JVD, No Murmur, No Gallop, Normal Peripheral Pulses, Regular Rate/Rhythm Breast Exam: Deferred Gastrointestinal: No Organomegaly, Non Tender, No Pulsatile Mass, Normal Bowel Sounds, Soft Genitalia: Deferred Pelvic: Deferred Rectal: Deferred Extremities: No calf tenderness, Normal capillary refill, Normal inspection, Normal range of motion, Non-tender, No pedal edema Musculoskeletal : Apperance: Normal Neurologic: Alert, case manager II-XII nml as Tested, No Motor Deficits, Normal Affect, Normal Mood, No Sensory Deficits Cerebellar Function: Normal Reflexes: Normal Skin: Dry, Normal Color, Warm Lymphatic: No Adenopathy EKG EKG : Pulse Rate (adult): 62 [place]: Normal Cardiac Rhythm: NSR Block: None ST: Nonsp Was a procedure done? Was a procedure done?: No CP Differential Dx Differential Diagnosis: N/A Differential Diagnosis: Angina, Chest Wall Pain, Cholelithiasis, Costochondritis, Esophageal reflux/spasm, Gastritis X-Ray, Labs, Meds, VS Vital Signs Date Time Temp Pulse Resp B/P (MAP) Pulse Ox O2 Delivery O2 Flow Rate FiO2 12/17/24 12:33 80 12/17/24 12:13 17 98 Room Air* 0 21 12/17/24 11:36 97.9 64 18 153/93 97 97.9 12/17/24 11:31 62 Lab Test 12/17/24 13:02 12/17/24 12:09 12/17/24 11:57 Range/Units Troponin I High Sensitivity 5 5 </=54 ng/L Urine Color Light-yellow Yellow Urine Clarity Clear Clear Urine pH 5.0 5.0-9.0 Urine Specific [place] 1.016 1.001-1.035 Urine Protein Negative Negative Urine Ketones Negative Negative Urine Blood Negative Negative /uL Urine Nitrite Negative Negative Urine Bilirubin Negative Negative Urine Urobilinogen Normal Negative mg/dL Urine Leukocyte Esterase Negative Negative /uL Urine RBC 1 0 - 3 /hpf Urine Microscopic WBC < 1 0-3 /HPF Urine Squamous Epithelial Cells None seen <5 /hpf Urine Uric Acid Crystals Few None Seen /hpf Urine Bacteria None seen None Seen /hpf Urine Mucus Few None Seen Urine Glucose Normal Normal mg/dL White Blood Count 5.2 4.4-10.8 10^3/uL Red Blood Count 4.52 4.5-5.90 10^6/uL Hemoglobin 14.5 13.5-17.5 g/dL Hematocrit 42.1 41.0-53.0 % Mean Corpuscular Volume 93.2 80.0-100.0 fL Mean Corpuscular Hemoglobin 32.0 28.0-32.0 pg Mean Corpuscular Hemoglobin Concent 34.3 32.0-36.0 g/dL Red Cell Distribution Width 13.3 11.8-14.3 % Platelet Count 169 140-450 10^3/uL Mean Platelet Volume 7.8 6.9-10.8 fL Neutrophils (%) (Auto) 59.2 37.0-80.0 % Lymphocytes (%) (Auto) 25.7 10.0-50.0 % Monocytes (%) (Auto) 9.0 0.0-12.0 % Eosinophils (%) (Auto) 5.5 0.0-7.0 % Basophils (%) (Auto) 0.6 0.0-2.0 % Neutrophils # (Auto) 3.1 1.6-8.6 10 ^3/uL Lymphocytes # (Auto) 1.3 0.4-5.4 10 ^3/uL Monocytes # (Auto) 0.5 0-1.3 10 ^3/uL Eosinophils # (Auto) 0.3 0-0.8 10 ^3/uL Basophils # (Auto) 0 0-0.2 10 ^3/uL Nucleated Red Blood Cells 0.0 % Sodium Level 141 136-145 mmol/L Potassium Level 4.2 3.5-5.1 mmol/L Chloride Level 107 98-107 mmol/L Carbon Dioxide Level 26 20-31 mmol/L Anion Gap 8 5-15 Blood Urea Nitrogen 13 9-23 mg/dL Creatinine 0.86 0.700-1.30 mg/dL Glomerular Filtration Rate Calc 90 >90 mL/min BUN/Creatinine Ratio 15.1 10.0-20.0 Serum Glucose 73 L 74-106 mg/dL Calcium Level 8.8 8.7-10.4 mg/dL B-Type Natriuretic Peptide 86.70 0-100 pg/mL CXR: IMPRESSION: NO ACUTE CARDIOPULMONARY PROCESS. The patient's CBC is within normal limits The chemistry panel is within normal limits The BNP is within normal limits The urine test is negative At this time, the patient will be admitted to the hospitalist An IV Hep-Lock has been established A cardiology consult will be obtained. Images Reviewed?: Images reviewed and evaluated by me Time of 1ST Reevaluation: 12:20 Reevaluation 1ST: Unchanged Patient Education/Counseling: Diagnosis, Treatment, Prognosis Family Education/Counseling: No Family Present SEPSIS Sepsis Screen Date sepsis recognized/suspect: Dec 17, 2024 Time Sepsis recognized/suspect: 1139 Recent Procedure: No On Antibiotic Therapy: No Respiratory Rate >20: No Heart Rate >90: No Temp<36 C (96.8 F) or >38.3 C: No SBP <90 or MAP <65 mmHG: No New Acute Mental Status Change: No Is the patient on CPAP, BIPAP,: No Physician Orders Electrocardigram (12/17/24 11:35) Electrocardigram (12/17/24 12:35) Electrocardigram (12/17/24 14:35) Chest Portable (12/17/24 11:47) Heplock Iv (12/17/24 11:47) Nail Tech (12/17/24 11:47) Blood Pressure (12/17/24 11:47) Pulse Oximetry (12/17/24 11:47) Vital Signs Date Time Temp Pulse Resp B/P (MAP) Pulse Ox O2 Delivery O2 Flow Rate FiO2 12/17/24 12:33 80 12/17/24 12:13 17 98 Room Air* 0 21 12/17/24 11:36 97.9 64 18 153/93 97 97.9 12/17/24 11:31 62 Laboratory Tests Test 12/17/24 11:57 White Blood Count 5.2 10^3/uL (4.4-10.8) Departure 1 Departure Time of Disposition: 14:52 Impression: Primary Impression: Acute coronary syndrome Disposition: ADMITTED INPATIENT Admit to: Tele Condition: Fair Critical Care Note Critical Care Time?: Yes (45 min-critical care time only) Stability Stability form required: Yes Unstable for transfer: Telemetry monitoring (Telemetry monitoring required), ED Physician Assesment (Clinical assesment) Heart Score Heart Score: Heart Score Response (Comments) Value History N/A 0 EKG N/A 0 Age N/A 0 Risk Factors N/A 0 Troponin N/A 0 Total 0 I personally scribed for PAOLA MONTOYA MD ([email or web address]) on 12/17/24 at 11:58. Electronically submitted by Soo Pritchard ([email or web address]). I personally scribed for PAOLA MONTOYA MD ([email or web address]) on 12/17/24 at 12:55. Electronically submitted by Soo Pritchard ([email or web address]). PAOLA MONTOYA MD Dec 17, 2024 11:58
[2024-12-17 12:13] VITALS: RESP 17; O2SAT 98
[2024-12-17 12:35] LABS: Chloride 107 mmol/L (98-107); Potassium 4.2 mmol/L (3.5-5.1); Sodium 141 mmol/L (136-145)
[2024-12-17 12:36] LABS: Anion Gap 8 (5-15); Calcium 8.8 mg/dL (8.7-10.4); Carbon Dioxide 26 mmol/L (20-31); Hematocrit 42.1 % (41.0-53.0); Hemoglobin 14.5 g/dL (13.5-17.5); Mean Corpuscular Hemoglobin 32.0 pg (28.0-32.0); Mean Corpuscular Volume 93.2 fL (80.0-100.0); Nucleated Red Blood Cells % 0.0 %
--- NOTE | 2024-12-17 12:38 | DVH ---
CLINICAL HISTORY: sob TECHNIQUE: Single view of the chest was obtained. COMPARISON: XY CHEST PORTABLE on DOS: 12/08/22, CT CHEST WITHOUT CONTRAST on DOS: 12/08/22, XY CHEST PO RTABLE on DOS: 12/08/22, CT CHEST WITHOUT CONTRAST on DOS: 09/27/22, XY CHEST PORTABLE on DOS: 09/24/22 FINDINGS: The heart size and pulmonary vasculature are normal. The lungs are clear. IMPRESSION: NO ACUTE CARDIOPULMONARY PROCESS.
[2024-12-17 12:41] LABS: BUN/Creatinine Ratio 15.1 (10.0-20.0); Blood Urea Nitrogen 13 mg/dL (9-23)
[2024-12-17 12:46] LABS: Glucose 73 mg/dL (74-106)
[2024-12-17 13:08] LABS: Urine Protein, UAD Negative (Negative)
[2024-12-18] MEDS ORDERED: ONDANSETRON HCL 4 MG/2 ML VIAL IV PRN
[2024-12-18] MEDS ORDERED: MORPHINE SULFATE INJ 2 MG/ml SYRG IV PRN
[2024-12-18] MEDS ORDERED: NITROGLYCERIN 0.4 MG SL TAB SL PRN
[2024-12-18] MEDS ORDERED: ACETAMINOPHEN 325 MG TAB PO PRN
[2024-12-18] MEDS ORDERED: DOCUSATE SOD 100 MG CAP PO PRN
[2024-12-18] MEDS ORDERED: HYDROcodone-ACET 5/325MG TAB PO PRN
[2024-12-18 00:46] LABS: Hematocrit 42.4 % (41.0-53.0); Hemoglobin 14.6 g/dL (13.5-17.5); Mean Corpuscular Hemoglobin 32.0 pg (28.0-32.0); Mean Corpuscular Volume 93.3 fL (80.0-100.0); Nucleated Red Blood Cells % 0.1 %
[2024-12-18 00:58] LABS: Alanine Aminotransferase 16 U/L (7-40); Albumin 4.2 g/dL (3.2-4.8); Alkaline Phosphatase 87 U/L (46-116); Anion Gap 5 (5-15); BUN/Creatinine Ratio 14.4 (10.0-20.0); Blood Urea Nitrogen 13 mg/dL (9-23); Calcium 8.9 mg/dL (8.7-10.4); Carbon Dioxide 27 mmol/L (20-31); Chloride 107 mmol/L (98-107); Glucose 92 mg/dL (74-106); Potassium 4.0 mmol/L (3.5-5.1); Sodium 139 mmol/L (136-145); Total Protein 6.6 g/dL (5.7-8.2)
[2024-12-18 00:59] LABS: Bilirubin, Total 0.4 mg/dL (0.2-1.0)
--- NOTE | 2024-12-18 03:10 | DVHHPRES ---
History of Present Illness Resident Creating Document: ELYSSA BARTLETT RESIDENT History of Present Illness 74-year-old male with past medical history of type 2 diabetes mellitus, COPD, intestinal tumor, mycobacterium bovis infection, hernia, BPH coronary artery disease presented with complaints of shortness of breath since 4 days, bilateral leg swelling since 2 days and chest pain since 1 day. Patient states that the chest pain is 8/10 in intensity, pressure-like, continuous, radiating to the right hand, aggravates during exercise and alleviates during resting. Patient states that the shortness of breath improves on head end elevation. PSHx: UroLift procedure, intestinal tumor removal 1 year back, hernia surgery 3 years back Family history: Patient denies Social history: Alcohol use for 50 years, 29 pack year cigarette smoking history, denies recreational drug use Home medication: Entresto, Trelegy Allergic history: Patient denies Review of Systems Review of Systems General: patient denies fever, fatigue, weaknes, sweating, any recent changes in appetite and weight HEENT: No headaches, visiual changes, hearing loss, tinnitus, nasal congestion and discharge, and sore throat. Cardiovascular: Complains of chest pain, shortness of breath, pedal edema Respiratory: No cough, and wheezing. Gastrointestinal: Denies nausea, vomiting, dysphagia, odynophagia, heartburn, abdominal pain, flatulence, bloating, diarrhea, constipation, change in stool, or blood in stool. Genitourinary: No dysuria, hematuria, discharge, frequency, urgency, nocturia, incontinence, and urinary retention. Endocrine: No heat or cold intolerance, polydipsia, polyuria, and polyphagia. Neurological: No dizziness, extremity weakness and numbness, tremors, gait disturbance, seizures, and memory impairment. Psychiatric: Denies depression, anxiety,or insomnia. Musculoskeletal: Denies neck pain, stiffness and swelling, back pain, muscle weakness, joint pain, stiffness, swelling, or limited range of motion. Skin: No rashes, itching, skin lesion, changes in hair, nail, skin texture and breast. Hematologic/Lymphatic: Denies easy bruising, bleeding tendencies, or lymph node enlargement. Allergies: Coded Allergies: No Known Drug Allergy (Verified Allergy, Unknown, 02/23/21) Medications Current Medications Medications Dose Ordered Sig/Estella Route Start Time Stop Time Status Last Admin Dose Admin Acetaminophen 325 mg Q4HP PRN PO 12/18/24 00:00 Acetaminophen/ Hydrocodone Bitart 1 tab Q4HP PRN PO 12/18/24 00:00 Ondansetron HCl 4 mg Q4HP PRN IV 12/18/24 00:00 Docusate Sodium 100 mg BIDPRN PRN PO 12/18/24 00:00 Nitroglycerin 0.4 mg Q5MINP PRN SL 12/18/24 00:00 Morphine Sulfate 2 mg Q30M PRN IV 12/18/24 00:00 Sacubitril/ Valsartan 1 tab BID PO 12/18/24 10:00 Exam Vital Signs Vital Signs Date Time Temp Pulse Resp B/P (MAP) Pulse Ox O2 Delivery O2 Flow Rate FiO2 12/17/24 23:50 97.9 58 16 167/80 (109) 97 97.9 12/17/24 12:13 Room Air* 0 21 Exam General Appearance: Alert, Oriented X3, Cooperative, No acute distress HEENT: Atraumatic, PERRLA, EOMI, Mucous membrane moist/pink Respiratory: Clear to auscultation, Normal air movement Cardiovascular: Regular rate, Normal S1, Normal S2, No murmurs, no chest wall tenderness Abdominal: Normal bowel sounds, Soft, No tenderness, No hepatospenomegaly, No masses Extremities: Bilateral pitting pedal edema present, No clubbing, No cyanosis, Normal pulses, No tenderness/swelling Skin: No rashes, No breakdown, No significant lesion Neuro: Normal gait, Normal speech, Strength at 5/5 X4 ext, Normal tone, Sensation intact, Cranial nerves 3-12 NL, Reflexes 2+ Psych/Mental Status: Mental status NL, Mood NL Labs/Xrays Labs Test 12/18/24 00:26 12/17/24 13:02 12/17/24 12:09 12/17/24 11:57 Range/Units White Blood Count 4.4 4.4-10.8 10^3/uL Red Blood Count 4.55 4.5-5.90 10^6/uL Hemoglobin 14.6 13.5-17.5 g/dL Hematocrit 42.4 41.0-53.0 % Mean Corpuscular Volume 93.3 80.0-100.0 fL Mean Corpuscular Hemoglobin 32.0 28.0-32.0 pg Mean Corpuscular Hemoglobin Concent 34.3 32.0-36.0 g/dL Red Cell Distribution Width 13.5 11.8-14.3 % Platelet Count 167 140-450 10^3/uL Mean Platelet Volume 7.8 6.9-10.8 fL Neutrophils (%) (Auto) 49.8 37.0-80.0 % Lymphocytes (%) (Auto) 28.7 10.0-50.0 % Monocytes (%) (Auto) 11.1 0.0-12.0 % Eosinophils (%) (Auto) 9.7 H 0.0-7.0 % Basophils (%) (Auto) 0.7 0.0-2.0 % Neutrophils # (Auto) 2.2 1.6-8.6 10 ^3/uL Lymphocytes # (Auto) 1.3 0.4-5.4 10 ^3/uL Monocytes # (Auto) 0.5 0-1.3 10 ^3/uL Eosinophils # (Auto) 0.4 0-0.8 10 ^3/uL Basophils # (Auto) 0 0-0.2 10 ^3/uL Nucleated Red Blood Cells 0.1 % Sodium Level 139 136-145 mmol/L Potassium Level 4.0 3.5-5.1 mmol/L Chloride Level 107 98-107 mmol/L Carbon Dioxide Level 27 20-31 mmol/L Anion Gap 5 5-15 Blood Urea Nitrogen 13 9-23 mg/dL Creatinine 0.90 0.700-1.30 mg/dL Glomerular Filtration Rate Calc 89 >90 mL/min BUN/Creatinine Ratio 14.4 10.0-20.0 Serum Glucose 92 74-106 mg/dL Calcium Level 8.9 8.7-10.4 mg/dL Total Bilirubin 0.4 0.2-1.0 mg/dL Aspartate Amino Transferase (AST) 24 13-40 U/L Alanine Aminotransferase (ALT) 16 7-40 U/L Alkaline Phosphatase 87 46-116 U/L Total Protein 6.6 5.7-8.2 g/dL Albumin 4.2 3.2-4.8 g/dL Troponin I High Sensitivity 5 </=54 ng/L Urine Color Light-yellow Yellow Urine Clarity Clear Clear Urine pH 5.0 5.0-9.0 Urine Specific Essie 1.016 1.001-1.035 Urine Protein Negative Negative Urine Ketones Negative Negative Urine Blood Negative Negative /uL Urine Nitrite Negative Negative Urine Bilirubin Negative Negative Urine Urobilinogen Normal Negative mg/dL Urine Leukocyte Esterase Negative Negative /uL Urine RBC 1 0 - 3 /hpf Urine Microscopic WBC < 1 0-3 /HPF Urine Squamous Epithelial Cells None seen <5 /hpf Urine Uric Acid Crystals Few None Seen /hpf Urine Bacteria None seen None Seen /hpf Urine Mucus Few None Seen Urine Glucose Normal Normal mg/dL B-Type Natriuretic Peptide 86.70 0-100 pg/mL SEPSIS Sepsis Screen Date sepsis recognized/suspect: Dec 17, 2024 Time Sepsis recognized/suspect: 1138 Recent Procedure: No On Antibiotic Therapy: No Respiratory Rate >20: No Heart Rate >90: No Temp<36 C (96.8 F) or >38.3 C: No SBP <90 or MAP <65 mmHG: No New Acute Mental Status Change: No Is the patient on CPAP, BIPAP,: No Physician Orders Admit (12/17/24 23:53) Allergies (12/17/24 23:53) Code Status (12/17/24 23:53) Acetaminophen Tablet (Tylenol Tablet) (12/18/24 00:00) Hydrocodone-Acet 5/325mg Tab (Alexander 5/32 (12/18/24 00:00) Ondansetron Hcl (Zofran) (12/18/24 00:00) Docusate Sodium Capsule (Colace Capsule) (12/18/24 00:00) Cardiac Diet-2gna,Lofat,Lochol (12/18/24 Breakfast) Condition: Fair (12/17/24 23:53) Nitroglycerin Sublingual (Ntrostat Subli (12/18/24 00:00) Morphine Sulfate Injection (12/18/24 00:00) Stat Ekg For Chest Pain (12/17/24 23:53) Nursing Home Aide For 24 Hours (12/17/24 23:53) Sacubitril-Valsartan (Entresto 24-26 Mg (12/18/24 10:00) Drug Screen (12/18/24 02:25) Echo 2d Mode Cardiac Dop (12/18/24 02:25) Thyroid Stimulating Hormone (12/18/24 02:25) Erythrocyte Sedimentation Rate (12/18/24 02:25) C-Reactive Protein (12/18/24 02:25) D-Dimer (12/18/24 02:25) Communication Order (12/18/24 02:28) Vital Signs Date Time Temp Pulse Resp B/P (MAP) Pulse Ox O2 Delivery O2 Flow Rate FiO2 12/17/24 23:50 97.9 58 16 167/80 (109) 97 97.9 12/17/24 19:26 60 18 158/77 (104) 96 Laboratory Tests Test 12/18/24 00:26 White Blood Count 4.4 10^3/uL (4.4-10.8) Assessment/Plan Assessment/Plan #Chest pain to rule out acute coronary syndrome #History of acute coronary syndrome #To rule out heart failure;new onset shortness of breath which alleviates on head end elevation, bilateral pitting pedal edema- Echo #To rule out myocarditis-esr,crp #To rule out aortic dissection - differential bp #Pneumothorax ruled out - Xray #To rule out thyroid disease - tsh #To rule out DVT/PE- d-dimer #History of mycobacterium bovis-9 month treatment regimen completed #History of type 2 diabetes mellitus-continue home medications #History of COPD-continue home medications #History of intestinal tumor PCP: Dr. Mariano Barriers to discharge: Medical management in progress. Case discussed with Dr. Barrera Code status: Full code. Complex patient care discussion needed total 35 minutes Plan discussed with: Patient, Spouse, Daughter My Orders Orders - ELYSSA BARTLETT RESIDENT Procedure Category Date Status Time Admit ADMIT 12/17/24 Transmitted 23:53 Allergies MARILEE 12/17/24 In Process 23:53 Code Status CODE 12/17/24 Transmitted 23:53 Acetaminophen Tablet PHA 12/18/24 In Process (Tylenol Tablet) 00:00 Hydrocodone-Acet PHA 12/18/24 In Process 5/325mg Tab (Alexander 00:00 Ondansetron Hcl PHA 12/18/24 In Process (Zofran) 00:00 Docusate Sodium PHA 12/18/24 In Process Capsule (Colace 00:00 Cardiac DIET 12/18/24 Transmitted Diet-2gna,Lofat,Lochol Breakfast Condition: Fair MARILEE 12/17/24 In Process 23:53 Nitroglycerin PHA 12/18/24 In Process Sublingual (Ntrostat 00:00 Morphine Sulfate PHA 12/18/24 In Process Injection 00:00 Stat Ekg For Chest MARILEE 12/17/24 In Process Pain 23:53 Nursing Home Aide For MARILEE 12/17/24 In Process 24 Hours 23:53 Sacubitril-Valsartan PHA 12/18/24 In Process (Entresto 24-26 Mg 10:00 Drug Screen LAB 12/18/24 Logged 02:25 Echo 2d Mode Cardiac US 12/18/24 Logged DOP 02:25 Thyroid Stimulating LAB 12/18/24 In Process Hormone 02:25 Erythrocyte LAB 12/18/24 In Process Sedimentation Rate 02:25 C-Reactive Protein LAB 12/18/24 In Process 02:25 D-Dimer LAB 12/18/24 In Process 02:25 Communication Order ORDERS 12/18/24 Transmitted 02:28 Date of Service: Dec 17, 2024 Billing Provider: AMRITA BARRERA MD Common Visit Codes: 64281-BIKDMRC INP/OBS CARE (HIGH) Secondary Visit Codes: 44993-[id number] CARE PLAN 30 MINUTES ELYSSA BARTLETT RESIDENT Dec 18, 2024 02:52
[2024-12-18 09:03] LABS: Amphetamine Screen, Urine Neg (NEGATIVE); Barbiturate Scree,Urine Neg (NEGATIVE); Benzodiazephine Screen, Urine Neg (NEGATIVE); Cannabinoid Screen, Urine Neg (NEGATIVE); Cocaine Screen, Urine Neg (NEGATIVE); Opiate Scree,Urine Neg (NEGATIVE); Phencyclidine Screen, Urine Neg (NEGATIVE)
[2024-12-18] MEDS: ATORVASTATIN 20 MG TAB PO ONE (09:31)
[2024-12-18] MEDS: ENOXAPARIN SOD 40 MG/0.4 ML SYRINGE SC ONE (09:31)
[2024-12-18] MEDS: PANTOPRAZOLE 40 MG TAB PO ONE (09:32)
[2024-12-18] MEDS: SACUBITRIL-VALSARTAN 24mg/26mg TAB PO SCH (09:32)
[2024-12-18 09:40] VITALS: PULSE 71; RESP 20; O2SAT 98
--- NOTE | 2024-12-18 10:31 | ECG ---
[facility] Test Date: 2024-12-17 Test Time: 12:33:12 Pat Name: DARRIAN SUBRAMANIAN Department: ED Room: 0295T Gender: M Certified Nursing Attendant: : 1950 Requested By: PAOLA MONTOYA Order Number: [id number] Reading MD: Beck Ricardo Measurements Intervals [place] Rate: 60 P: 6 [place]: 185 QRS: -5 QRSD: 84 T: 37 QT: 407 QTc: 407 Interpretive Statements Sinus rhythm Posterior infarct, old Electronically Signed On 12-20-2024 15:03:54 PDT by Beck Ricardo Please click the below link to view image of tracing.
[2024-12-18] MEDS: FUROSEMIDE 20 MG/2 ML VIAL IV ONE (12:51)
--- NOTE | 2024-12-18 13:23 | DVHPNRES ---
Progress Note Date Seen: Dec 18, 2024 Resident Creating Document: MEGHAN BRUNO RESIDENT Medical Necessity Reason Pt with a Central, PICC or Fol: No Subjective Review of Systems This is a 74-year-old male with past medical history of type 2 diabetes mellitus, COPD, intestinal tumor, mycobacterium bovis infection, hernia, BPH coronary artery disease, prostatectomy presented with complaints of shortness of breath since 4 days, bilateral leg swelling since 2 weeks associated with exertional dyspnea, orthopnea and paroxysmal nocturnal dyspnea. Patient states that the chest pain is 7/10 in intensity, pressure-like, continuous, radiating to the right hand, aggravates during exercise and alleviates during resting for last 1 and half years. Patient states that the shortness of breath improves on head end elevation. Patient seen by biological chemist and having new cardiology appointment. Coronary angiogram done on 02/2022 which is negative for any coronary artery occlusion. Patient stated treated lung infection 9 months ago. PSHx: UroLift procedure, intestinal tumor removal 1 year back, hernia surgery 3 years back Family history: Patient denies Social history: Alcohol use for 50 years, 29 pack year cigarette smoking history, denies recreational drug use Home medication: Entresto, Trelegy Allergic history: Patient denies Patient seen and evaluated in bedside today. Patient currently lying on bed and reported chest pain. EKG done and no ST wave changes. Bilateral lower extremity shows shininess of the skin likely peripheral arterial disease, arterial Doppler done today. Objective vital signs Vital Sign Date Time Temp Pulse Resp B/P (MAP) Pulse Ox O2 Delivery O2 Flow Rate FiO2 12/18/24 12:51 150/75 12/18/24 09:40 71 20 98 Room Air* 0 21 12/18/24 09:40 97.9 97.9 medications Current Medications Medications Dose Ordered Sig/Estella Route Start Time Stop Time Status Last Admin Dose Admin Acetaminophen 325 mg Q4HP PRN PO 12/18/24 00:00 Acetaminophen/ Hydrocodone Bitart 1 tab Q4HP PRN PO 12/18/24 00:00 Ondansetron HCl 4 mg Q4HP PRN IV 12/18/24 00:00 Docusate Sodium 100 mg BIDPRN PRN PO 12/18/24 00:00 Nitroglycerin 0.4 mg Q5MINP PRN SL 12/18/24 00:00 Morphine Sulfate 2 mg Q30M PRN IV 12/18/24 00:00 Sacubitril/ Valsartan 1 tab BID PO 12/18/24 10:00 12/18/24 09:32 1 TAB Atorvastatin Calcium 40 mg HS PO 12/18/24 22:00 Pantoprazole Sodium 40 mg DAILY@0600 PO 12/19/24 06:00 Al Hydrox/Mg Hydrox/Simethicone 15 ml Q8HP PRN PO 12/18/24 08:30 Aspirin 81 mg DAILY PO 12/19/24 10:00 Furosemide 20 mg BIDD IV 12/18/24 18:00 Examination General Appearance: Alert, Oriented X3, Cooperative, No acute distress HEENT: Atraumatic, PERRLA, EOMI, Mucous membrane moist/pink Respiratory: Clear to auscultation, Normal air movement Cardiovascular: Regular rate, Normal S1, Normal S2, No murmurs, positive for chest pain Abdominal: Normal bowel sounds, Soft, No tenderness, No hepatospenomegaly, No masses Extremities: Bilateral pitting pedal edema present, No clubbing, No cyanosis, Normal pulses, No tenderness/swelling Skin: No rashes, No breakdown, No significant lesion Neuro: Normal gait, Normal speech, laboratory and microbiology Laboratory Tests 12/18/24 00:26 Test 12/18/24 00:26 Range/Units Serum Glucose 92 74-106 mg/dL Problem List/Assessment/Plan Problem List/Assessment/Plan Assessment and plan #Chest pain to rule out acute coronary syndrome Troponin negative, EKG shows no ST- wave changes. x-ray chest shows no acute cardiopulmonary disease started aspirin 81 mg p.o. daily atorvastatin 40 mg q.h.s. nitroglycerin tablets sublingually as needed morphine injection if chest pain # Acute on chronic systolic heart failure echo on 01/05/2022 shows EF 55-60%, moderate aortic insufficiency patient came with bilateral leg swelling, orthopnea, paroxysmal nocturnal dyspnea patient currently on Entresto. Paxton 20 mg IV b.i.d. need to optimize GDMT noncompliant with med medication ECHO PENDING # Essential hypertension hydralazine 10 mg IV q.6 p.r.n. if blood pressure more than 150 monitor blood pressure sacubitril valsartan cardiac diet # COPD without exacerbation Ex smoker home medication albuterol and Trelegy inhaler # Bilateral lower extremity swelling rule out DVT D-dimer 0.24 Venous duplex bilateral lower extremity negative for any venous thrombosis. # Peripheral artery disease Negative for severe PAD. # Type 2 diabetes mellitus diet controlled not on any medication # GERD not on any medication # hyperlipidemia home medication atorvastatin DIET: CARDIAC GI prophylaxis: Pantoprazole DVT prophylaxis: Lovenox 40 mg sc daily Goals of care discussions. More than 25 minute spent with patient. Full code status. Case discussed with Dr. Schmidt. Plan discussed with: Patient, Other (Full Review of SystemsConstitutional: No Weight Change, No Fever, No Chills, No Night Sweats, No Fatigue, No MalaiseENT/Mouth: No Hearing Changes, No Ear Pain, No Nasal Congestion, No Sinus Pain, No Hoarseness, No sore throat, No Rhinorrhea, No Swallowing DifficultyEyes: No Eye Pain, No Swelling, No Redness, No Foreign Body, No Discharge, No Vision ChangesCardiovascular: No Chest Pain, No SOB, No PND, No Dyspnea on Exertion, No Orthopnea, No Claudication, No Edema, No PalpitationsRespiratory: No Cough, No Sputum, No Wheezing, No Smoke Exposure, No DyspneaGastrointestinal: No Nausea, No Vomiting, No Diarrhea, No Constipation, No Pain, No Heartburn, No Anorexia, No Dysphagia, No Hematochezia, No Melena, No Flatulence, No JaundiceGenitourinary: No Dysmenorrhea, No DUB, No Dyspareunia, No Dysuria, No Urinary Frequency, No Hematuria, No Urinary Incontinence, No Urgency, No Flank Pain, No Urinary Flow Changes, No HesitancyMusculoskeletal: No Arthralgias, No Myalgias, No Joint Swelling, No Joint Stiffness, No Back Pain, No Neck Pain, No Injury HistorySkin: No Skin Lesions, No Pruritis, No Hair Changes, No Breast/Skin Changes, No Nipple DischargeNeuro: No Weakness, No Numbness, No Paresthesias, No Loss of Consciousness, No Syncope, No Dizziness, No Headache, No Coordination Changes, No Recent FallsPsych: No Anxiety/Panic, No Depression, No Insomnia, No Personality Changes, No Delusions, No Rumination, No SI/HI/AH/VH, No Social Issues, No Memory Changes, No Violence/Abuse Hx., No Eating ConcernsHeme/Lymph: No Bruising, No Bleeding, No Transfusions History, No LymphadenopathyEndocrine: No Polyuria, No Polydipsia, No Temperature Intolerance) Date of Service: Dec 18, 2024 Billing Provider: SHAHEEN SCHMIDT MD Common Visit Codes: [id number] INP/OBS CARE(HIGH) MEGHAN BRUNO RESIDENT Dec 18, 2024 13:23 ABILIO STATON RESIDENT Dec 21, 2024 00:15 SHAHEEN SCHMIDT MD Dec 21, 2024 22:24
--- NOTE | 2024-12-18 13:25 | DVH ---
Bilateral lower extremity venous duplex Clinical History: Bilateral leg swelling Comparison: None Findings: Duplex Doppler evaluation of the deep venous systems of both lower extremities from the common femora l veins to the popliteal veins including color Doppler and spectral/pulsed waveform analysis was perf ormed. RIGHT SIDE: The common femoral vein demonstrates appropriate compressibility and waveform variability. There is compressibility/patency of the great saphenous vein at the proximal thigh. The femoral vein demonstrates appropriate compressibility and waveform variability. The deep femoral vein demonstrates appropriate compressibility and waveform variability. The popliteal vein demonstrates appropriate compressibility and waveform variability. There is normal compressibility at the tibioperoneal trunk. LEFT SIDE: The common femoral vein demonstrates appropriate compressibility and waveform variability. There is compressibility/patency of the great saphenous vein at the proximal thigh. The femoral vein demonstrates appropriate compressibility and waveform variability. The deep femoral vein demonstrates appropriate compressibility and waveform variability. The popliteal vein demonstrates appropriate compressibility and waveform variability. There is normal compressibility at the tibioperoneal trunk. IMPRESSION: No right or left femoropopliteal venous thrombosis. If clinical concern/symptoms persist or worsen, short-interval follow-up study is suggested. END IMPRESSION:
[2024-12-18 17:48] VITALS: BP 163/104; PULSE 72; RESP 18; TEMP 98.6; O2SAT 97
[2024-12-18] MEDS: FUROSEMIDE 20 MG/2 ML VIAL IV SCH (18:15)
[2024-12-18] MEDS: hydrALAZINE HCL 20 MG/ML VL IV PRN (18:16)
[2024-12-18 19:02] VITALS: BP 119/55; PULSE 90
[2024-12-18 20:00] VITALS: PULSE 75; O2SAT 98
[2024-12-18 21:00] VITALS: BP 104/60; PULSE 82; RESP 17; TEMP 82; TEMP 98; O2SAT 95
[2024-12-18] MEDS: ATORVASTATIN 20 MG TAB PO SCH (21:29)
[2024-12-19] VITALS (10 sets, daily range): BP systolic 108–129; BP diastolic 54–83; PULSE 61–89; RESP 19–20; TEMP 98–98.3; O2SAT 93–100
[2024-12-19] MEDS: PANTOPRAZOLE 40 MG TAB PO SCH (05:36)
[2024-12-19 07:32] LABS: Anion Gap 8 (5-15); Carbon Dioxide 27 mmol/L (20-31); Chloride 104 mmol/L (98-107); Potassium 4.0 mmol/L (3.5-5.1); Sodium 139 mmol/L (136-145)
[2024-12-19 07:33] LABS: Calcium 9.5 mg/dL (8.7-10.4); Hematocrit 45.2 % (41.0-53.0); Hemoglobin 15.9 g/dL (13.5-17.5); Mean Corpuscular Hemoglobin 32.4 pg (28.0-32.0); Mean Corpuscular Volume 92.1 fL (80.0-100.0); Nucleated Red Blood Cells % 0.0 %
[2024-12-19 07:38] LABS: BUN/Creatinine Ratio 14.1 (10.0-20.0); Blood Urea Nitrogen 14 mg/dL (9-23); Glucose 104 mg/dL (74-106)
[2024-12-19] MEDS: ENOXAPARIN SOD 40 MG/0.4 ML SYRINGE SC SCH (08:48)
[2024-12-19] MEDS: MAALOX PLUS or MAALOX 30 ML PO PRN (09:44)
--- NOTE | 2024-12-19 09:57 | DVHSR ---
APPROVED REPORT EXAM: Two-dimensional and M-mode echocardiogram with Doppler and color Doppler. Blood Pressure: 161/82 mmHg INDICATION R/O stuctural heart disease RISK FACTORS Height: 5'2", Weight: 171 DIMENSIONS LVDd5.6 (3.8-5.7cm)LA (2D)4.1 (1.9-4.0cm)Aortic Root3.6 (2.0-3.7cm) LVDs4.4 (2.5-4.0cm)LA (MM) (1.9-4.0cm)Aortic Cusp Exc2.2 (1.5-2.0cm) EF (%) 43.0 (55-70%)Rt. Atrium3.3 (1.9-4.0cm)Asc. Aorta3.8 cm IVSd0.8 (0.7-1.1cm)RV (D) (1.8-2.4cm) PWd0.7 (0.7-1.1cm) Mitral Valve MitralMitral Stenosis E wave0.65m/sMV Mean GR.mmHg A wave0.71m/sMV Peak GR.mmHg E/A ratio0.92D MVAcm2 DECEL [id number] 1/2 Timems Aortic Valve Aortic ValveAortic Stenosis V10.57m/Emeka Mean GR.2mmHg V21.06m/Emeka Peak GR.4mmHg LVOT Diameter2.4 (1.8-2.4cm)Doppler AVA2.43cm2 AI P 1/2 Ejkq541.87ms Pulmonic Valve V20.66m/s Tricuspid Valve TR Velocity2.21m/s [id number] Conclusion MODERATE DEGREE HYPOKINESIS OF LV ENTIRE ANTERIOR WALL,APEX AND DISTAL HALF OF IVS LV EF IS IN RANGE OF 40% AND IS REDUCED MILD AORTIC REGURGITATION NORMAL VALVES NORMAL RV FUNCTION SLIGHTLY DILATED LA RVSP IS 23 MM OF HG AND IS NORMAL NO EFFUSION
[2024-12-19] MEDS: POLYETHYLENE GLYCOL 17 GM PWDR PO ONE (11:53)
--- NOTE | 2024-12-19 14:09 | ECG ---
[facility] Test Date: 2024-12-17 Test Time: 11:31:27 Pat Name: DARRIAN SUBRAMANIAN Department: Room: 0295T A Gender: M Business Intelligence Analyst: RHYS : 1950 Requested By: PAOLA MONTOYA Order Number: [id number] Reading MD: Beck Ricardo Measurements Intervals [place] Rate: 62 P: 16 [place]: 191 QRS: -32 QRSD: 84 T: 16 QT: 411 QTc: 418 Interpretive Statements Sinus rhythm Atrial premature complex RSR' in V1 or V2, right VCD or RVH Left ventricular hypertrophy Electronically Signed On 12-20-2024 15:03:49 PDT by Beck Ricardo Please click the below link to view image of tracing.
--- NOTE | 2024-12-19 14:19 | DVH ---
BILATERAL Lower Extremity Arterial Duplex Date: 12/19/2024 12:24 PM Clinical History: Pain; R/O PAD Comparison: US BILAT LOWER DVT on DOS: 12/18/24, CAROTID DUPLX W COLOR DOP on DOS: 06/17/20 Technique: Duplex Doppler evaluation including color Doppler and spectral/pulsed waveform analysis of the lower extremity arteries was performed. Finding: RIGHT: Peak systolic velocities are as follows: WASTEWATER TREATMENT OPERATOR 122 cm/s Deep femoral 70 cm/s SFA proximal 97 cm/s SFA mid-portion 83 cm/s SFA distal 70 cm/s Popliteal 60 cm/s Posterior tibial 60 cm/s Anterior tibial 38 cm/s Dorsalis pedis 47 cm/s The waveforms are triphasic with diastolic flow. LEFT: Peak systolic velocities are as follows: WASTEWATER TREATMENT OPERATOR 109 cm/s Deep femoral 46 cm/s SFA proximal 98 cm/s SFA mid-portion 85 cm/s SFA distal 65 cm/s Popliteal 71 cm/s Posterior tibial 46 cm/s Anterior tibial 64 cm/s Dorsalis pedis 57 cm/s The waveforms are triphasic with diastolic flow. REFERENCE VALUES, [facility] ([facility]) vascular Imaging Lab Criteria: Peak systolic velocity ranges (in cm/sec) are as follows: <150 cm/s - <20 % stenosis 150-200 cm/s - 20-49% stenosis 200-300 cm/s - 50-75% stenosis >300 cm/s -> 75% stenosis There is atherosclerotic vascular disease in the bilateral lower extremity arteries. IMPRESSION: There is no evidence for peripheral vascular insufficiency in the right lower extremity. There is no evidence for peripheral vascular insufficiency in the left lower extremity. No significant focal stenosis is identified.
--- NOTE | 2024-12-19 16:20 | DVHINCON2 ---
Date Seen: Dec 19, 2024 Referring Physician MD [place] resident Reason for Consultation Acute on chronic systolic heart failure History of Present Illness This is a Citizen Of [place]-speaking 74-year-old male patient who presents to the emergency room with chief complaint of chest pain and shortness of breath for four days prior to emergency room arrival. The patient describes the pain as unprovoked, constant, pressure-like in nature, substernal and nonradiating. Associated symptoms include shortness of breath. Initial twelve lead electrocardiogram reveals normal sinus rhythm with nonconducted ectopic beat. Troponin levels have been negative. Significant past medical history includes congestive heart failure, hypertension, COPD, intestinal tumor status post removal, mycobacterium infection, BPH, and tobacco use. The patient follows up with human resources services specialist in the outpatient setting. The patient underwent coronary angiogram in 2020 and 2021 which revealed normal coronaries. Past Medical History Past medical history reviewed. No other significant than mentioned above. Past Surgical History Partial intestine removal Hernia repair Family History: Patient reports no known family medical history. Family History Family history reviewed. Social History Patient has a 29 pack-year history, quit smoking 30 years ago The patient reports drinking approximately 18 beers per week Denies illicit drug use Allergies: Coded Allergies: No Known Drug Allergy (Verified Allergy, Unknown, 02/23/21) Home Meds Active Scripts Ondansetron Odt 4MG Tab (ZOFRAN PO) 4 Mg Tb, 4 MG PO Q6HP PRN, #15 TAB ODT TAB-DISSOLVE IN MOUTH, THEN SWALLOW Prov:CHRISTY RAWLS PAC 04/29/24 Acetaminophen (Acetaminophen) 500 Mg Tab, 500 MG PO Q4HP PRN, #30 TAB Prov:CHRISTY RAWLS PAC 04/29/24 Albuterol Sulfate (Albuterol Sulfate Hfa) 108 Mcg/Act Aer, 108 MCG IN Q4HP PRN, #1 AER Prov:CHRISTY RAWLS PAC 04/29/24 Azithromycin (Azithromycin) 500 Mg Tab, 1 TAB PO DAILY for 4 Days, #4 TAB Prov:CHRISTY RAWLS PAC 04/29/24 Tobramycin Sulfate (Tobrex) [address], 2 DROP OP QID, #5 ML Prov:NENITA HUTTON 04/21/24 Erythromycin (Erythromycin) 5 Mg/Gm Oin, 1 MG OP QID for 5 Days, #20 OIN Prov:KARLA MATHEWS MD 03/02/24 Tramadol Hcl (Tramadol Hcl) 50 Mg Tab, 50 MG PO TIDP PRN for 7 Days, #21 TAB Prov:CHRIS RIVERA MD 09/29/22 Levofloxacin (Levaquin 750 mg) 750 Mg Tab, 500 MG PO DAILY for 7 Days, #7 TAB Prov:CHRIS RIVERA MD 09/29/22 Reported Medications Fexofenadine Hcl (Fexofenadine Hcl) 60 Mg Tab, 180 MG PO DAILY for 30 Days, MG 09/26/22 Atorvastatin Calcium (ATORVASTATIN CALCIUM) 10 Mg Tab, 1 TAB PO DAILY, #30 TAB 5 Refills 09/26/22 Prhtoyllbpw-Ggoiwnzqggkd-Ptorp (Trelegy Ellipta 200-62.5-25 Mcg/INH) 1 Aer Aer, 1 AER IN DAILY, AER 03/30/22 Albuterol Sulfate (VENTOLIN MDI) 90 Mcg Ih, 180 MCG IN Q4HPRN PRN for SHORTNESS OF BREATH, INH 02/23/21 Sacubitril-Valsartan (Entresto 24-26 mg) 1 Tab Tab, 1 TAB PO BID, TAB 02/23/21 Home Meds Home medications reviewed. Current Medications Current Medications Medications (Trade) Dose Ordered Sig/Estella Route PRN Reason Start Time Stop Time Status Last Admin Atorvastatin Calcium (Lipitor) 40 mg HS PO 12/18/24 22:00 12/18/24 21:29 Pantoprazole Sodium (Protonix Tablet) 40 mg DAILY@0600 PO 12/19/24 06:00 12/19/24 05:36 Aspirin 81 mg DAILY PO 12/19/24 10:00 12/19/24 08:47 Furosemide (Lasix Injection) 20 mg BIDD IV 12/18/24 18:00 12/19/24 05:36 Hydralazine HCl (Apresoline Injection) 10 mg Q6HP PRN IV SBP>150 12/18/24 18:00 12/19/24 09:36 DC 12/18/24 18:16 Enoxaparin Sodium (Lovenox) 40 mg DAILY SC 12/19/24 10:00 12/19/24 08:48 Polyethylene Glycol (Miralax 17GM Powder) 17 gm DAILY PO 12/20/24 10:00 Review of Systems Constitutional: No symptom reported Ears, Nose, & Throat: No symptom reported Eyes: No symptom reported Neurological: No symptoms reported Pulmonary/Respiratory: Shortness of breath Cardiovascular: Chest pain Gastrointestinal: No symptom reported Genitourinary: No symptom reported Musculoskeletal: No symptom reported Skin: No symptom reported Psychiatric: No symptom reported Endocrine: No symptom reported Hematologic/Lymphatic: No symptom reported Vital Signs Vital Signs Date Time Temp Pulse Resp B/P (MAP) Pulse Ox O2 Delivery O2 Flow Rate FiO2 12/19/24 13:00 98.3 75 19 129/74 (92) 96 98.3 12/19/24 07:48 Room Air* 0 21 Physical Exam General Appearance: Cooperative. Well-developed. Well-nourished. No acute distress. Pulmonary/Respiratory: Clear, bilateral breaths sounds. Cardiovascular/Chest: Regular rate and rhythm. Peripheral Pulses: 2+ Radial (R). 2+ Radial (L). 2+ Pedal (R). 2+ Pedal (L) Abdominal Exam: Normal bowel sounds. Ankle Exam: 2+ pitting edema Lower extremities: 2+ pitting edema Neuro/Mental Status: A/OX4, coherent. Thoughts/Psych: Normal thought pattern. Appropriate mood and affect. Good judgment and insight. Appearance: No acute distress. Skin Exam: Normal inspection. Normal color. Warm and dry. Labs/Diagnostic Data Labs Test 12/19/24 06:39 12/18/24 00:26 12/17/24 13:02 12/17/24 12:09 Range/Units White Blood Count 4.3 L 4.4-10.8 10^3/uL Red Blood Count 4.91 4.5-5.90 10^6/uL Hemoglobin 15.9 13.5-17.5 g/dL Hematocrit 45.2 41.0-53.0 % Mean Corpuscular Volume 92.1 80.0-100.0 fL Mean Corpuscular Hemoglobin 32.4 H 28.0-32.0 pg Mean Corpuscular Hemoglobin Concent 35.2 32.0-36.0 g/dL Red Cell Distribution Width 13.4 11.8-14.3 % Platelet Count 172 140-450 10^3/uL Mean Platelet Volume 8.1 6.9-10.8 fL Neutrophils (%) (Auto) 62.7 37.0-80.0 % Lymphocytes (%) (Auto) 20.6 10.0-50.0 % Monocytes (%) (Auto) 9.3 0.0-12.0 % Eosinophils (%) (Auto) 6.6 0.0-7.0 % Basophils (%) (Auto) 0.8 0.0-2.0 % Neutrophils # (Auto) 2.7 1.6-8.6 10 ^3/uL Lymphocytes # (Auto) 0.9 0.4-5.4 10 ^3/uL Monocytes # (Auto) 0.4 0-1.3 10 ^3/uL Eosinophils # (Auto) 0.3 0-0.8 10 ^3/uL Basophils # (Auto) 0 0-0.2 10 ^3/uL Nucleated Red Blood Cells 0.0 % Sodium Level 139 136-145 mmol/L Potassium Level 4.0 3.5-5.1 mmol/L Chloride Level 104 98-107 mmol/L Carbon Dioxide Level 27 20-31 mmol/L Anion Gap 8 5-15 Blood Urea Nitrogen 14 9-23 mg/dL Creatinine 0.99 0.700-1.30 mg/dL Glomerular Filtration Rate Calc 79 >90 mL/min BUN/Creatinine Ratio 14.1 10.0-20.0 Serum Glucose 104 74-106 mg/dL Calcium Level 9.5 8.7-10.4 mg/dL Erythrocyte Sedimentation Rate 10 0-20 mm/hr D-Dimer, Quantitative 0.24 0.0-0.49 mg/L FEU Total Bilirubin 0.4 0.2-1.0 mg/dL Aspartate Amino Transferase (AST) 24 13-40 U/L Alanine Aminotransferase (ALT) 16 7-40 U/L Alkaline Phosphatase 87 46-116 U/L C-Reactive Protein High Sensitivity 0.16 <1.0 mg/dL Total Protein 6.6 5.7-8.2 g/dL Albumin 4.2 3.2-4.8 g/dL Thyroid Stimulating Hormone (TSH) 1.87 0.55-4.78 uIU/mL Free Thyroxine (T4) Calculated 1.18 0.89-1.76 ng/dL Troponin I High Sensitivity 5 </=54 ng/L Urine Color Light-yellow Yellow Urine Clarity Clear Clear Urine pH 5.0 5.0-9.0 Urine Specific Kaplan 1.016 1.001-1.035 Urine Protein Negative Negative Urine Ketones Negative Negative Urine Blood Negative Negative /uL Urine Nitrite Negative Negative Urine Bilirubin Negative Negative Urine Urobilinogen Normal Negative mg/dL Urine Leukocyte Esterase Negative Negative /uL Urine RBC 1 0 - 3 /hpf Urine Microscopic WBC < 1 0-3 /HPF Urine Squamous Epithelial Cells None seen <5 /hpf Urine Uric Acid Crystals Few None Seen /hpf Urine Bacteria None seen None Seen /hpf Urine Mucus Few None Seen Urine Glucose Normal Normal mg/dL Urine Opiates Screen Neg NEGATIVE Urine Fentanyl Screen Neg NEGATIVE Urine Barbiturates Screen Neg NEGATIVE Urine Phencyclidine Screen Neg NEGATIVE Urine Amphetamines Screen Neg NEGATIVE Urine Benzodiazepines Screen Neg NEGATIVE Urine Cocaine Screen Neg NEGATIVE Urine Cannabinoids Screen Neg NEGATIVE Test 12/17/24 11:57 Range/Units B-Type Natriuretic Peptide 86.70 0-100 pg/mL Assessment Chest pain, rule out coronary artery disease Acute on chronic compensated HFrEF, NYHA class III Hypertension COPD History of intestinal tumor status post removal History of tobacco use Alcohol use Plan/Recommendation We will continue with the following plan/recommendations (Dr. Ricardo): Transthoracic echocardiogram reveals EF 40% with hypokinesis of left ventricle, anterior wall, apex, and distal half of IVS. Given the patient's clinical presentation and abnormal wall motion on echocardiogram, the patient may benefit from a coronary angiogram with left heart catheterization.The procedure was discussed with the patient in full detail including risks and benefits. Risks include but are not limited to bleeding, contrast-induced nephropathy, coronary dissection, stroke, and even . The patient understands and is agreeable to undergo the procedure. We will schedule the patient at soonest availability on 12/20/2024. In the meantime, initiate guideline directed medical therapy for CHF as tolerated. Continue with close cardiac surveillance. Thank you for allowing us to care for this patient. Please call with any questions or concerns. Critical care time spent: 44 minutes This medical document was created using an electronic medical record system with voice recognition software and computerized dictation system. Although this document has been carefully reviewed, there might still be some phonetic and typographical errors. Occasional wrong-word or ``sound-alike substitutions may have occurred due to the inherent limitations of voice recognition software. These areas are purely typographical due to imperfections of the software programs and do not reflect any compromise in the patient's medical care. Please read the chart carefully and recognize, using context, where these substitutions have occurred. Plan discussed with: Patient NYHA Physical activity limitations: Class3(Marked) ordinary (activity causes symtoms) Date of Service: Dec 19, 2024 Billing Provider: MORENO THORNTON Cardiology Common Codes: [id number] INP/OBS CARE (High) Cardiology Consultation Codes: [id number] CONSULT <45MIN MORENO THORNTON Dec 19, 2024 16:20
--- NOTE | 2024-12-19 16:47 | DVHPNRES ---
Progress Note Date Seen: Dec 19, 2024 Resident Creating Document: MEGHAN BRUNO RESIDENT Medical Necessity Reason Pt with a Central, PICC or Fol: No Subjective Review of Systems This is a 74-year-old male with past medical history of type 2 diabetes mellitus, COPD, intestinal tumor, mycobacterium bovis infection, hernia, BPH, multiple admissions due to pneumonia, required bronchoscopy due to lung mass which was nonmalignant, presented with complaints of progressive shortness of breath four days previous to his admission, bilateral leg swelling since 2 weeks associated with exertional dyspnea, orthopnea and paroxysmal nocturnal dyspnea. Patient also complains of retrosternal oppressive chest pain, intensity 7/10, which is continuous for the past year and a half, radiating to the right upper extremity, aggravates during exercise and alleviates during rest. Patient states that the shortness of breath improves when sitting up. Patient seen by fern gatherer and having new cardiology appointment. Coronary angiogram done on 02/2022 which is negative for any coronary artery occlusion. PSHx: UroLift procedure, intestinal tumor removal 1 year back, hernia surgery 3 years back, coronary angiography in 2021 with nonobstructive coronary arteries, prostatectomy, Family history: Noncontributory Social history: Alcohol use for 50 years, 29 pack year cigarette smoking history, denies recreational drug use Home medication: Entresto, Trelegy Allergic history: Denies Patient seen and evaluated in bedside today. Patient chest pain significantly improved currently 2/10 intensity. Patient currently on diuretics and leg swelling improving. Bilateral lower extremity arterial duplex ordered. Cardiology consulted due to new echocardiogram findings which show anterior wall motility abnormality, possible cardiac catheterization. Objective vital signs Vital Sign Date Time Temp Pulse Resp B/P (MAP) Pulse Ox O2 Delivery O2 Flow Rate FiO2 12/19/24 13:00 98.3 75 19 129/74 (92) 96 98.3 12/19/24 07:48 Room Air* 0 21 Total Intake and Output 12/18/24 12/18/24 12/19/24 15:00 23:00 07:00 Intake Total 450 ml Output Total 1950 ml Balance -1500 ml medications Current Medications Medications Dose Ordered Sig/Estella Route Start Time Stop Time Status Last Admin Dose Admin Acetaminophen 325 mg Q4HP PRN PO 12/18/24 00:00 Acetaminophen/ Hydrocodone Bitart 1 tab Q4HP PRN PO 12/18/24 00:00 Morphine Sulfate 2 mg Q30M PRN IV 12/18/24 00:00 Sacubitril/ Valsartan 1 tab BID PO 12/18/24 10:00 12/19/24 08:48 1 TAB Atorvastatin Calcium 40 mg HS PO 12/18/24 22:00 12/18/24 21:29 40 MG Pantoprazole Sodium 40 mg DAILY@0600 PO 12/19/24 06:00 12/19/24 05:36 40 MG Al Hydrox/Mg Hydrox/Simethicone 15 ml Q8HP PRN PO 12/18/24 08:30 12/19/24 09:44 15 ML Aspirin 81 mg DAILY PO 12/19/24 10:00 12/19/24 08:47 81 MG Furosemide 20 mg BIDD IV 12/18/24 18:00 12/19/24 05:36 20 MG Enoxaparin Sodium 40 mg DAILY SC 12/19/24 10:00 12/19/24 08:48 40 MG Polyethylene Glycol 17 gm DAILY PO 12/20/24 10:00 Examination Constitutional: No: Fever, Chills, Sweats, Weakness, Malaise Eyes: No: Pain, Vision change, Conjunctivae inflammation, Eyelid inflammation, ENT: No: Ear pain, Ear discharge, Nose pain, Nose discharge, Nose congestion Respiratory: Shortness of breath; No: Cough, Dry, SOB with excertion, Wheezing, Hemoptysis, Pleuritic Pain, Sputum, Wheezing, Other Cardiovascular: No: Chest Pain, Palpitations, Orthopnea, Paroxysmal Noc. Dyspnea, mild edema bilateral lower extremity. Bilateral decreased pedal pulses right more than left, decreased temperature in bilateral feet right more than left Gastrointestinal: No: Nausea, Vomiting, Abdominal Pain, Diarrhea Genitourinary: No Dysuria, No Frequency, No Incontinence Musculoskeletal: No: other, neck pain, shoulder pain, arm pain, back pain, hand pain, leg pain, foot pain Skin: No: Rash, Lesions, Jaundice, Bruising, Other laboratory and microbiology Laboratory Tests 12/19/24 06:39 Test 12/19/24 06:39 Range/Units Serum Glucose 104 74-106 mg/dL Problem List/Assessment/Plan Problem List/Assessment/Plan # Chest pain to rule out acute coronary syndrome (probable unstable angina) # Acute on chronic systolic heart failure Troponin negative, EKG shows no ST- wave changes. x-ray chest shows no acute cardiopulmonary disease On aspirin 81 mg p.o. daily and atorvastatin 40 mg q.h.s. and furosemide 20 mg IV b.i.d. Completed echocardiogram which showed LVEF 40%, moderate degree of hypokinesis in anterior wall, normal valves, normal RV function, mildly dilated LA, RVSP 23 mmHg. Consulted cardiology: Patient presents deterioration LVEF (previous LVEF was 55-60%) and new anterior hypokinesis. Patient was offered coronary angiography, discussed risks and benefits. Scheduled for catheterization cardiac catheterization on 12/20/2024. Optimize GDM T (on metoprolol Entresto, empagliflozin and spironolactone) # COPD without exacerbation Ex smoker home medication albuterol and Trelegy inhaler # Bilateral lower extremity swelling rule out DVT D-dimer 0.24 Venous duplex bilateral lower extremity negative for any venous thrombosis. # Peripheral artery disease Arterial duplex : No significant hemodynamic lesions Exercise as tolerated # GERD Currently on pantoprazole # Type 2 diabetes mellitus # Essential hypertension # Hyperlipidemia Gave advice on healthy lifestyle habits Continue home medication (atorvastatin, Entresto) On insulin sliding scale DIET: CARDIAC GI prophylaxis: Pantoprazole DVT prophylaxis: Lovenox 40 mg sc daily Goals of care discussions. More than 21 minute spent with patient. Full code status. Case discussed with Dr. Schmidt. Plan discussed with: Patient, Spouse, Other (Nurse) My Orders My Orders Orders - MEGHAN BRUNO RESIDENT Procedure Category Date Status Time Enoxaparin Sodium PHA 12/19/24 In Process (Lovenox) 10:00 Bilat Low Ext Art US 12/19/24 Resulted Duplex 09:36 * Cardiology Consult CONS 12/19/24 Transmitted 11:22 Polyethylene Glycol PHA 12/20/24 In Process 17g Powder (Miralax 10:00 Date of Service: Dec 19, 2024 Billing Provider: SHAHEEN SCHMIDT MD Common Visit Codes: [id number] INP/OBS CARE(HIGH) MEGHAN BRUNO RESIDENT Dec 19, 2024 16:47 ABILIO STATON RESIDENT Dec 19, 2024 19:56 SHAHEEN SCHMIDT MD Dec 21, 2024 22:39
[2024-12-19] MEDS: BUDESONIDE (INHALATION) 0.5 MG/2 ML NEB NEB SCH (22:35)
[2024-12-20] VITALS (14 sets, daily range): BP systolic 108–134; BP diastolic 70–81; PULSE 53–72; RESP 17–20; TEMP 97–97.9; O2SAT 92–98
[2024-12-20] MEDS ORDERED: LEVALBUTEROL HCL 1.25 MG/3 ML NEB NEB SCH
[2024-12-20] MEDS: IPRATROPIUM BROM 0.5 MG/2.5ML INH SOL NEB PRN (00:32)
[2024-12-20] MEDS: LEVALBUTEROL HCL 1.25 MG/3 ML NEB NEB PRN (00:33)
[2024-12-20] MEDS ORDERED: IPRATROPIUM BROM 0.5 MG/2.5ML INH SOL NEB SCH (06:00)
[2024-12-20 06:55] LABS: INR 0.98 (0.9-1.15); Partial Thromboplastin Time 27.9 SEC (24.5-34.5); Prothrombin Time 10.4 sec (9.3-11.8)
[2024-12-20 07:05] LABS: Alanine Aminotransferase 20 U/L (7-40); Albumin 4.0 g/dL (3.2-4.8); Alkaline Phosphatase 83 U/L (46-116); Anion Gap 9 (5-15); BUN/Creatinine Ratio 16.8 (10.0-20.0); Bilirubin, Total 0.6 mg/dL (0.2-1.0); Blood Urea Nitrogen 17 mg/dL (9-23); Calcium 9.0 mg/dL (8.7-10.4); Carbon Dioxide 25 mmol/L (20-31); Chloride 106 mmol/L (98-107); Glucose 100 mg/dL (74-106); Potassium 3.7 mmol/L (3.5-5.1); Sodium 140 mmol/L (136-145); Total Protein 6.6 g/dL (5.7-8.2)
[2024-12-20 07:09] LABS: Hematocrit 43.5 % (41.0-53.0); Hemoglobin 15.0 g/dL (13.5-17.5); Mean Corpuscular Hemoglobin 32.1 pg (28.0-32.0); Mean Corpuscular Volume 92.7 fL (80.0-100.0); Nucleated Red Blood Cells % 0.3 %
[2024-12-20] MEDS: EMPAGLIFLOZIN 10 MG TAB PO SCH (08:31)
[2024-12-20] MEDS: SPIRONOLACTONE 25 MG TAB PO SCH (08:31)
[2024-12-20] MEDS: METOPROLOL SUCCINATE XL 50 MG TAB PO SCH (08:32)
[2024-12-20] MEDS: POLYETHYLENE GLYCOL 17 GM PWDR PO SCH (08:34)
[2024-12-20] MEDS: IODIXANOL 320MG/ML 100ML BTL IV ONE (13:04)
[2024-12-20] MEDS: LIDOCAINE 2%HCL (LOCAL ANESTH.) INJ 20ML MDV ONE (13:04)
[2024-12-20] MEDS: ANGIOMAX 250 MG VIAL IV ONE (13:19)
[2024-12-20] MEDS: VERAPAMIL 2.5MG/ML INJ 2ML VIAL IV ONE (13:19)
[2024-12-20] MEDS: HEPARIN SODIUM (PORCINE) 5000 UNITS/ML 1ML VIAL ONE (13:19)
[2024-12-20] MEDS: fentaNYL CITRATE 100 MCG/2 ML VL ONE (13:19)
[2024-12-20] MEDS: SODIUM CHL 0.9% 50 ML ONE (13:20)
[2024-12-20] MEDS: MIDAZOLAM HCL 2MG/2ML 2ml VIAL (1mg/ml) ONE (13:20)
--- NOTE | 2024-12-20 14:00 | DVHPN2 ---
Progress Note Date Seen: Dec 20, 2024 Medical Necessity Reason Pt with a Central, PICC or Fol: No Subjective Patient reports: Feels better Objective vital signs Vital Sign Date Time Temp Pulse Resp B/P (MAP) Pulse Ox O2 Delivery O2 Flow Rate FiO2 12/20/24 12:52 97.7 60 17 115/70 (85) 94 97.7 12/20/24 09:35 Room Air* 0 21 Total Intake and Output 12/19/24 12/19/24 12/20/24 15:00 23:00 07:00 Intake Total 850 ml 634 ml Output Total 1300 ml 1825 ml Balance -450 ml -1191 ml medications Current Medications Medications Dose Ordered Sig/Estella Route Start Time Stop Time Status Last Admin Dose Admin Acetaminophen 325 mg Q4HP PRN PO 12/18/24 00:00 Acetaminophen/ Hydrocodone Bitart 1 tab Q4HP PRN PO 12/18/24 00:00 Morphine Sulfate 2 mg Q30M PRN IV 12/18/24 00:00 Sacubitril/ Valsartan 1 tab BID PO 12/18/24 10:00 12/20/24 08:31 1 TAB Atorvastatin Calcium 40 mg HS PO 12/18/24 22:00 12/19/24 21:10 40 MG Pantoprazole Sodium 40 mg DAILY@0600 PO 12/19/24 06:00 12/19/24 05:36 40 MG Al Hydrox/Mg Hydrox/Simethicone 15 ml Q8HP PRN PO 12/18/24 08:30 12/19/24 09:44 15 ML Aspirin 81 mg DAILY PO 12/19/24 10:00 12/20/24 08:31 81 MG Furosemide 20 mg BIDD IV 12/18/24 18:00 12/19/24 17:37 20 MG Enoxaparin Sodium 40 mg DAILY SC 12/19/24 10:00 Hold 12/19/24 08:48 40 MG Polyethylene Glycol 17 gm DAILY PO 12/20/24 10:00 Empaglifozin 10 mg DAILY PO 12/20/24 10:00 12/20/24 08:31 10 MG Metoprolol Succinate 25 mg DAILY PO 12/20/24 10:00 12/20/24 08:32 25 MG Spironolactone 25 mg DAILY PO 12/20/24 10:00 12/20/24 08:31 25 MG Budesonide 0.5 mg BID NEB 12/19/24 22:00 12/20/24 07:38 0.5 MG Ipratropium [place] 0.5 mg Q6HPRN PRN NEB 12/19/24 23:00 12/20/24 07:38 0.5 MG Levalbuterol HCl 0.625 mg Q6HPRN PRN NEB 12/19/24 23:00 12/20/24 07:38 0.625 MG Examination: GENERAL:Abnormal, HEENT:Abnormal, LUNGS:Abnormal, CVS:Abnormal, ABDOMEN:Abnormal laboratory and microbiology Laboratory Tests 12/20/24 06:14 Test 12/20/24 06:14 Range/Units Serum Glucose 100 74-106 mg/dL Problem List/Assessment/Plan Problem List/Assessment/Plan ACS cad htn HL s/p pci to 95% mid to distal LAD ruptured plaque negative LHC in 2021 and images personally reviewed cont dapt high dose statin fu dr franco on dc Plan discussed with: Patient My Orders My Orders Orders - TASHA YODER MD Procedure Category Date Status Time Cl Left Heart Cath CL 12/20/24 Taken 07:20 Date of Service: Dec 20, 2024 Billing Provider: TASHA YODER MD Common Visit Codes: NOT BILLABLE TASAH YODER MD Dec 20, 2024 14:00
--- NOTE | 2024-12-20 14:03 | DVHOP2 ---
Operative Report Operative Report CARDIAC [employer] PROCEDURE REPORT [place], [place] Date of Service: 12/20/24 Charge Entry Specialist: Tasha Yoder MD PROCEDURES PERFORMED: Coronary angiogram, left heart catheterization, conscious sedation administration and supervision, less than 15 minutes; fluoroscopy use and interpretation. sedation 15-30 mins, PTCA 1 vessel, PCI 1 vessel PREOPERATIVE DIAGNOSES: ACS POSTOP DIAGNOSIS: 1v cad DESCRIPTION OF PROCEDURE: The patient or appropriate family signed informed consent understanding the risks, benefits and alternatives of the procedure, th ey wished to proceed. The patient was brought to the cardiac quality assurance/r&d lab technician in n.p.o. state. The patient was prepped in a sterile fashion. Sedation was used per cardiac cath protocol. I administered 2 mL of 2% lidocaine to the right wrist. With an antegrade front wall puncture. I cannulated the right radial artery and placed a 6-[place] Glides[place]ath slender. Next, an intra-arterial spasmolytic was administered. Next, a - 6[place] catheter anXB 3.5 guide and were used for coronary angiogram and LVEDP measurement and pressure pullback. At the completion of procedure, all guides and wires were removed, and there were no immediate complications. FINDINGS: RCA: small non domiant vessel off the right sinus of Valsalva, there is no severe flow limiting stenosis. LEFT MAIN: Moderate size left main, it bifurcates into LAD and circumflex. no stenosis CIRCUMFLEX: Moderate caliber vessel coming off the left main with no flow limiting stenosis. LAD: LAD is a moderate caliber vessel coming of the left main. 95% distal LAD hazy ruptured plaque. the prox and mid LAD is very tortous with challenging anatomy. INTERVENTION: We decided to proceed with coronary intervention. I started with a 6F ___XB3.5_ Guide to intubate the __left main . Angiomax bolus and gtt was started. Following this, I decided to wire using an .014Choice PT floppy to cross the culprit lesion with ease. At this time, we performed balloon angioplasty with a _2.5 x 12 mm balloon 12___ ATMS over __15__ seconds with _2_ number of inflations. Following this, I decided to place a stent using a 2.5 x 15 mm onyx____ stent inflated up to __18___ ATMS over 15 seconds with two separate inflations. Following this, the stent balloon removed and angio performed showing 0% residual stenosis. ROSIO pre/post: 3./3 CONCLUSIONS: 1. sp pci to 95% ruptured plaue in mid to distal LAD plaque with MEGHANA PLAN: Aggressive risk factor modification and medical management for the patient. DAPT x 1 year uninterrupted TASHA YODER MD Dec 20, 2024 14:03
[2024-12-20] MEDS: TICAGRELOR 90 MG TAB ONE (14:05)
--- NOTE | 2024-12-20 19:13 | DVHPNRES ---
Progress Note Date Seen: Dec 20, 2024 Resident Creating Document: MEGHAN BRUNO RESIDENT Medical Necessity Reason Pt with a Central, PICC or Fol: No Subjective Review of Systems This is a 74-year-old male with past medical history of type 2 diabetes mellitus, COPD, intestinal tumor, mycobacterium bovis infection, hernia, BPH, multiple admissions due to pneumonia, required bronchoscopy due to lung mass which was nonmalignant, presented with complaints of progressive shortness of breath four days previous to his admission, bilateral leg swelling since 2 weeks associated with exertional dyspnea, orthopnea and paroxysmal nocturnal dyspnea. Patient also complains of retrosternal oppressive chest pain, intensity 7/10, which is continuous for the past year and a half, radiating to the right upper extremity, aggravates during exercise and alleviates during rest. Patient states that the shortness of breath improves when sitting up. Patient seen by tractor sweeper operator and having new cardiology appointment. Coronary angiogram done on 02/2022 which is negative for any coronary artery occlusion. PSHx: UroLift procedure, intestinal tumor removal 1 year back, hernia surgery 3 years back, coronary angiography in 2021 with nonobstructive coronary arteries, prostatectomy, Family history: Noncontributory Social history: Alcohol use for 50 years, 29 pack year cigarette smoking history, denies recreational drug use Home medication: Entresto, Trelegy Allergic history: Denies Patient seen and evaluated in bedside today. Patient denies any chest pain , SOB, cough, abdominal pain or any other acute distress. Patient underwent PCI procedure due today. Objective vital signs Vital Sign Date Time Temp Pulse Resp B/P (MAP) Pulse Ox O2 Delivery O2 Flow Rate FiO2 12/20/24 16:55 97.0 58 18 134/81 (98) 98 97.0 12/20/24 09:35 Room Air* 0 21 Total Intake and Output 12/19/24 12/19/24 12/20/24 15:00 23:00 07:00 Intake Total 850 ml 634 ml Output Total 1300 ml 1825 ml Balance -450 ml -1191 ml medications Current Medications Medications Dose Ordered Sig/Estella Route Start Time Stop Time Status Last Admin Dose Admin Acetaminophen 325 mg Q4HP PRN PO 12/18/24 00:00 Acetaminophen/ Hydrocodone Bitart 1 tab Q4HP PRN PO 12/18/24 00:00 Morphine Sulfate 2 mg Q30M PRN IV 12/18/24 00:00 Sacubitril/ Valsartan 1 tab BID PO 12/18/24 10:00 12/20/24 08:31 1 TAB Atorvastatin Calcium 40 mg HS PO 12/18/24 22:00 12/19/24 21:10 40 MG Pantoprazole Sodium 40 mg DAILY@0600 PO 12/19/24 06:00 12/19/24 05:36 40 MG Al Hydrox/Mg Hydrox/Simethicone 15 ml Q8HP PRN PO 12/18/24 08:30 12/19/24 09:44 15 ML Aspirin 81 mg DAILY PO 12/19/24 10:00 12/20/24 08:31 81 MG Furosemide 20 mg BIDD IV 12/18/24 18:00 12/20/24 16:54 20 MG Enoxaparin Sodium 40 mg DAILY SC 12/19/24 10:00 Hold 12/19/24 08:48 40 MG Polyethylene Glycol 17 gm DAILY PO 12/20/24 10:00 Empaglifozin 10 mg DAILY PO 12/20/24 10:00 12/20/24 08:31 10 MG Metoprolol Succinate 25 mg DAILY PO 12/20/24 10:00 12/20/24 08:32 25 MG Spironolactone 25 mg DAILY PO 12/20/24 10:00 12/20/24 08:31 25 MG Budesonide 0.5 mg BID [facility] 12/19/24 22:00 12/20/24 07:38 0.5 MG Ipratropium [place] 0.5 mg Q6HPRN PRN NEB 12/19/24 23:00 12/20/24 07:38 0.5 MG Levalbuterol HCl 0.625 mg Q6HPRN PRN NEB 12/19/24 23:00 12/20/24 07:38 0.625 MG Clopidogrel Bisulfate 75 mg DAILY PO 12/21/24 10:00 Examination Constitutional: No: Fever, Chills, Sweats, Weakness, Malaise Eyes: No: Pain, Vision change, Conjunctivae inflammation, Eyelid inflammation, ENT: No: Ear pain, Ear discharge, Nose pain, Nose discharge, Nose congestion Respiratory: Shortness of breath; No: Cough, Dry, SOB with excertion, Wheezing, Hemoptysis, Pleuritic Pain, Sputum, Wheezing, Other Cardiovascular: No: Chest Pain, Palpitations, Orthopnea, Paroxysmal Noc. Dyspnea, mild edema bilateral lower extremity. Bilateral decreased pedal pulses right more than left, decreased temperature in bilateral feet right more than left Gastrointestinal: No: Nausea, Vomiting, Abdominal Pain, Diarrhea Genitourinary: No Dysuria, No Frequency, No Incontinence Musculoskeletal: No: other, neck pain, shoulder pain, arm pain, back pain, hand pain, leg pain, foot pain Skin: No: Rash, Lesions, Jaundice, Bruising, Other laboratory and microbiology Laboratory Tests 12/20/24 06:14 Test 12/20/24 06:14 Range/Units Serum Glucose 100 74-106 mg/dL Problem List/Assessment/Plan Problem List/Assessment/Plan # Unstable angina - s/p PCI to mid and distal LAD # Acute on chronic systolic heart failure PCI on 12/20/2024: 95% mid to distal LAD ruptured plaque with MEGHANA, continue dual antiplatelet therapy and high-dose statin. follow-up with Dr. Ricardo after discharge. Troponin negative, EKG shows no ST- wave changes. x-ray chest shows no acute cardiopulmonary disease On aspirin 81 mg p.o. daily , Plavix 75 mg p.o. daily and atorvastatin 40 mg q.h.s. and furosemide 20 mg IV b.i.d. Completed echocardiogram which showed LVEF 40%, moderate degree of hypokinesis in anterior wall, normal valves, normal RV function, mildly dilated LA, RVSP 23 mmHg. Consulted cardiology: Patient presents deterioration LVEF (previous LVEF was 55-60%) and new anterior hypokinesis. Patient was offered coronary angiography, discussed risks and benefits. Optimize GDM T (on metoprolol Entresto, empagliflozin and spironolactone) # COPD without exacerbation Ex smoker home medication albuterol and Trelegy inhaler # Bilateral lower extremity swelling rule out DVT D-dimer 0.24 Venous duplex bilateral lower extremity negative for any venous thrombosis. # Peripheral artery disease Arterial duplex : No hemodynamically significant lesions Exercise as tolerated # GERD Currently on pantoprazole # Type 2 diabetes mellitus ISS # Essential hypertension # Hyperlipidemia Gave advice on healthy lifestyle habits Continue home medication (atorvastatin,) DIET: CARDIAC GI prophylaxis: Pantoprazole DVT prophylaxis: Lovenox 40 mg sc daily Goals of care discussions. More than 23 minute spent with patient. Full code status. Case discussed with Dr. Short, patient and nurses. Plan discussed with: Patient, Other (Nurse) MEGHNA BRUNO RESIDENT Dec 20, 2024 19:13 ABILIO STATON RESIDENT Dec 21, 2024 00:19
[2024-12-20] MEDS: CLOPIDOGREL BISULFATE 75 MG TAB PO ONE (21:11)
[2024-12-21] VITALS (13 sets, daily range): BP systolic 109–139; BP diastolic 69–86; PULSE 55–70; RESP 16–20; TEMP 97.6–98.2; O2SAT 93–100
[2024-12-21 08:06] LABS: Anion Gap 9 (5-15); Calcium 9.3 mg/dL (8.7-10.4); Carbon Dioxide 26 mmol/L (20-31); Chloride 103 mmol/L (98-107); Potassium 4.1 mmol/L (3.5-5.1); Sodium 138 mmol/L (136-145)
[2024-12-21 08:10] LABS: Hematocrit 44.5 % (41.0-53.0); Hemoglobin 15.5 g/dL (13.5-17.5); Mean Corpuscular Hemoglobin 32.3 pg (28.0-32.0); Mean Corpuscular Volume 92.4 fL (80.0-100.0); Nucleated Red Blood Cells % 0.1 %
[2024-12-21 08:12] LABS: BUN/Creatinine Ratio 14.5 (10.0-20.0); Blood Urea Nitrogen 18 mg/dL (9-23); Glucose 85 mg/dL (74-106)
[2024-12-21] MEDS: CLOPIDOGREL BISULFATE 75 MG TAB PO SCH (08:39)
[2024-12-21] MEDS ORDERED: POLYETHYLENE GLYCOL 17 GM PWDR PO PRN (12:00)
[2024-12-21] MEDS: LORazepam 2MG/ML-1ML VIAL IV PRN (13:21)
[2024-12-21] MEDS: POLYETHYLENE GLYCOL 17 GM PWDR PO ONE (15:17)
--- NOTE | 2024-12-21 18:44 | DVHPNRES ---
Progress Note Date Seen: Dec 21, 2024 Resident Creating Document: MEGHAN BRUNO RESIDENT Medical Necessity Reason Pt with a Central, PICC or Fol: No Subjective Review of Systems This is a 74-year-old male with past medical history of type 2 diabetes mellitus, COPD, intestinal tumor, mycobacterium bovis infection, hernia, BPH, multiple admissions due to pneumonia, required bronchoscopy due to lung mass which was nonmalignant, presented with complaints of progressive shortness of breath four days previous to his admission, bilateral leg swelling since 2 weeks associated with exertional dyspnea, orthopnea and paroxysmal nocturnal dyspnea. Patient also complains of retrosternal progressive chest pain, intensity 7/10, which is continuous for the past year and a half, radiating to the right upper extremity, aggravates during exercise and alleviates during rest. Patient states that the shortness of breath improves when sitting up. Patient seen by managing consultant and having new cardiology appointment. Coronary angiogram done on 02/2022 which is negative for any coronary artery occlusion. PSHx: UroLift procedure, intestinal tumor removal 1 year back, hernia surgery 3 years back, coronary angiography in 2021 with nonobstructive coronary arteries, prostatectomy, Family history: Noncontributory Social history: Alcohol use for 50 years, 29 pack year cigarette smoking history, denies recreational drug use Home medication: Entresto, Trelegy Allergic history: Denies Patient seen and evaluated in bedside today. Catheter insertion site on right radial artery covered with dry bandage. No bleeding, hematoma, pseudoaneurysm or any signs symptoms of inflammation noted. Patient chest pain significantly improved. Currently denies any fever nausea, vomiting, abdominal pain, dysuria. Objective vital signs Vital Sign Date Time Temp Pulse Resp B/P (MAP) Pulse Ox O2 Delivery O2 Flow Rate FiO2 12/21/24 17:33 135/81 12/21/24 16:39 97.7 60 16 97 97.7 12/21/24 10:00 Room Air* 0 21 Total Intake and Output 12/20/24 12/20/24 12/21/24 15:00 23:00 07:00 Intake Total 0 ml 600 ml Output Total 1250 ml Balance 0 ml -650 ml medications Current Medications Medications Dose Ordered Sig/Estella Route Start Time Stop Time Status Last Admin Dose Admin Acetaminophen 325 mg Q4HP PRN PO 12/18/24 00:00 Acetaminophen/ Hydrocodone Bitart 1 tab Q4HP PRN PO 12/18/24 00:00 Morphine Sulfate 2 mg Q30M PRN IV 12/18/24 00:00 Sacubitril/ Valsartan 1 tab BID PO 12/18/24 10:00 12/21/24 08:40 1 TAB Atorvastatin Calcium 40 mg HS PO 12/18/24 22:00 12/20/24 21:11 40 MG Pantoprazole Sodium 40 mg DAILY@0600 PO 12/19/24 06:00 12/21/24 05:24 40 MG Al Hydrox/Mg Hydrox/Simethicone 15 ml Q8HP PRN PO 12/18/24 08:30 12/19/24 09:44 15 ML Aspirin 81 mg DAILY PO 12/19/24 10:00 12/21/24 08:40 81 MG Furosemide 20 mg BIDD IV 12/18/24 18:00 12/21/24 17:33 20 MG Enoxaparin Sodium 40 mg DAILY SC 12/19/24 10:00 Hold 12/19/24 08:48 40 MG Empaglifozin 10 mg DAILY PO 12/20/24 10:00 12/21/24 08:40 10 MG Metoprolol Succinate 25 mg DAILY PO 12/20/24 10:00 12/21/24 08:40 25 MG Spironolactone 25 mg DAILY PO 12/20/24 10:00 12/21/24 08:40 25 MG Budesonide 0.5 mg BID NEB 12/19/24 22:00 12/21/24 08:02 0.5 MG Ipratropium [place] 0.5 mg Q6HPRN PRN NEB 12/19/24 23:00 12/20/24 07:38 0.5 MG Levalbuterol HCl 0.625 mg Q6HPRN PRN NEB 12/19/24 23:00 12/20/24 07:38 0.625 MG Clopidogrel Bisulfate 75 mg DAILY PO 12/21/24 10:00 12/21/24 08:39 75 MG Polyethylene Glycol 17 gm DAILYPRN PRN PO 12/21/24 12:00 Lorazepam 0.5 mg Q6HP PRN IV 12/21/24 12:00 12/21/24 13:21 0.5 MG Examination Constitutional: No: Fever, Chills, Sweats, Weakness, Malaise Eyes: No: Pain, Vision change, Conjunctivae inflammation, Eyelid inflammation, ENT: No: Ear pain, Ear discharge, Nose pain, Nose discharge, Nose congestion Respiratory: Shortness of breath; No: Cough, Dry, SOB with excertion, Wheezing, Hemoptysis, Pleuritic Pain, Sputum, Wheezing, Other Cardiovascular: No: Chest Pain, Palpitations, Orthopnea, Paroxysmal Noc. Dyspnea, mild edema bilateral lower extremity. Gastrointestinal: No: Nausea, Vomiting, Abdominal Pain, Diarrhea Genitourinary: No Dysuria, No Frequency, No Incontinence Musculoskeletal: No: other, neck pain, shoulder pain, arm pain, back pain, hand pain, leg pain, foot pain Skin: No: Rash, Lesions, Jaundice, Bruising. Right radial artery catheter insertion site dry, no hematoma, no swelling or redness. laboratory and microbiology Laboratory Tests 12/21/24 06:28 Test 12/21/24 06:28 Range/Units Serum Glucose 85 74-106 mg/dL Problem List/Assessment/Plan Problem List/Assessment/Plan # Chest pain due to acute coronary syndrome (probable unstable angina) # Acute on chronic systolic heart failure Cipro no leukocytosis and patient chest pain improved. Encourage ambulation. S/P PCI on 12/20/2024: 95% mid to distal LAD ruptured plaque with EMGHANA, continue dual antiplatelet therapy and high-dose statin. Troponin negative, EKG shows no ST- wave changes. x-ray chest shows no acute cardiopulmonary disease On aspirin 81 mg p.o. daily , Plavix 75 mg p.o. daily and atorvastatin 40 mg q.h.s. and furosemide 20 mg IV b.i.d. Completed echocardiogram which showed LVEF 40%, moderate degree of hypokinesis in anterior wall, normal valves, normal RV function, mildly dilated LA, RVSP 23 mmHg. Consulted cardiology: Patient presents deterioration LVEF (previous LVEF was 55-60%) and new anterior hypokinesis. Patient was offered coronary angiography, discussed risks and benefits. Optimize GDM T (on metoprolol Entresto, empagliflozin and spironolactone) Cardiology on board, will follow recommendation for safe discharge. # COPD without exacerbation Ex smoker home medication albuterol and Trelegy inhaler # Bilateral lower extremity swelling rule out DVT D-dimer 0.24 Venous duplex bilateral lower extremity negative for any venous thrombosis. # Peripheral artery disease Arterial duplex : No significant hemodynamic lesions Exercise as tolerated # GERD Currently on pantoprazole # Constipation Patient encouraged ambulation and fiber diet intake Polyethylene glycol # Type 2 diabetes mellitus Diet controlled On insulin sliding scale # Essential hypertension Cardiac diet Not on any medication # Hyperlipidemia Gave advice on healthy lifestyle habits Continue home medication (atorvastatin) DIET: CARDIAC GI prophylaxis: Pantoprazole DVT prophylaxis: Lovenox 40 mg sc daily Goals of care discussions. More than 19 minute spent with patient. Full code status. Case discussed with Dr. Schmidt. Plan discussed with: Patient, Other (Nurse) Dietary Evaluation Review Comments: Monitor PO intake, lab values, weight trend, and I/O Expected Outcomes/Goals: To meet >75% estimated needs Fu 3-5 days Date of Service: Dec 21, 2024 Billing Provider: SHAHEEN SCHMIDT MD Common Visit Codes: [id number] INP/OBS CARE(HIGH) MEGHAN BRUNO RESIDENT Dec 21, 2024 18:44 SHAHEEN SCHMIDT MD Dec 21, 2024 21:47
[2024-12-22 01:00] VITALS: BP 132/71; PULSE 62; RESP 15; TEMP 97.9; O2SAT 92
[2024-12-22 05:00] VITALS: BP 117/61; PULSE 59; RESP 15; TEMP 98; O2SAT 95
[2024-12-22 05:11] LABS: Hematocrit 43.7 % (41.0-53.0); Hemoglobin 15.2 g/dL (13.5-17.5); Mean Corpuscular Hemoglobin 32.1 pg (28.0-32.0); Mean Corpuscular Volume 92.1 fL (80.0-100.0); Nucleated Red Blood Cells % 0.1 %
[2024-12-22 05:19] LABS: Chloride 105 mmol/L (98-107); Potassium 4.3 mmol/L (3.5-5.1); Sodium 138 mmol/L (136-145)
[2024-12-22 05:20] LABS: Anion Gap 8 (5-15); Calcium 9.2 mg/dL (8.7-10.4); Carbon Dioxide 25 mmol/L (20-31)
[2024-12-22 05:25] LABS: BUN/Creatinine Ratio 15.3 (10.0-20.0); Blood Urea Nitrogen 22 mg/dL (9-23); Glucose 96 mg/dL (74-106)
[2024-12-22 08:00] VITALS: PULSE 61; PULSE 65
[2024-12-22 10:00] VITALS: O2SAT 98
[2024-12-22 10:13] VITALS: PULSE 62; RESP 18; O2SAT 94
[2024-12-22 10:23] VITALS: PULSE 70; RESP 18; O2SAT 100
[2024-12-22] MEDS ORDERED: METO-6 PO ×2 (12:11→14:17)
[2024-12-22] MEDS ORDERED: CLOP75TA70 PO ×2 (12:11→14:17)
[2024-12-22] MEDS ORDERED: SPIR25TA PO ×2 (12:11→14:17)
[2024-12-22] MEDS ORDERED: EMPA1TAB PO ×2 (12:11→14:17)
[2024-12-22] MEDS ORDERED: ASPI-325 PO ×2 (12:11→14:17)
[2024-12-22] MEDS ORDERED: SACU1TAB PO ×2 (12:11→14:17)
[2024-12-22] MEDS ORDERED: ATOR20TA50 PO ×2 (12:11→14:17)
--- NOTE | 2024-12-22 12:15 | ECG ---
[facility] Test Date: 2024-12-20 Test Time: 16:01:33 Pat Name: DARRIAN SUBRAMANIAN Department: Respiratoy Room: 0276T A Gender: M Outside Food Server: CATRACHITO : 1950 Requested By: SHAHEEN SCHMIDT Order Number: [id number] Reading MD: Beck Ricardo Measurements Intervals [place] Rate: 59 P: 25 NM: 204 QRS: -31 QRSD: 85 T: 151 QT: 407 QTc: 404 Interpretive Statements Sinus rhythm Left axis deviation Abnormal R-wave progression, early transition Probable anteroseptal infarct, old Nonspecific T abnormalities, lateral leads Baseline wander in lead(s) V3 Electronically Signed On 12-24-2024 10:12:40 PDT by Beck Ricardo Please click the below link to view image of tracing.
[2024-12-22] MEDS ORDERED: PANT40T PO (14:17)
--- NOTE | 2024-12-22 21:49 | DVHDSRES ---
Discharge Summary Date of Admission Resident Creating Document: KAYLYN RIVERA Dec 17, 2024 at 23:53 Date of Discharge: Dec 22, 2024 Admitting Diagnosis ACS Labs/Diagnostic Data: Laboratory Results Test 12/22/24 04:44 12/20/24 06:14 12/18/24 00:26 12/17/24 13:02 White Blood Count 5.9 10^3/uL (4.4-10.8) Red Blood Count 4.74 10^6/uL (4.5-5.90) Hemoglobin 15.2 g/dL (13.5-17.5) Hematocrit 43.7 % (41.0-53.0) Mean Corpuscular Volume 92.1 fL (80.0-100.0) Mean Corpuscular Hemoglobin 32.1 pg (28.0-32.0) Mean Corpuscular Hemoglobin Concent 34.9 g/dL (32.0-36.0) Red Cell Distribution Width 13.3 % (11.8-14.3) Platelet Count 174 10^3/uL (140-450) Mean Platelet Volume 8.0 fL (6.9-10.8) Neutrophils (%) (Auto) 60.4 % (37.0-80.0) Lymphocytes (%) (Auto) 23.1 % (10.0-50.0) Monocytes (%) (Auto) 10.6 % (0.0-12.0) Eosinophils (%) (Auto) 5.4 % (0.0-7.0) Basophils (%) (Auto) 0.5 % (0.0-2.0) Neutrophils # (Auto) 3.6 10 ^3/uL (1.6-8.6) Lymphocytes # (Auto) 1.4 10 ^3/uL (0.4-5.4) Monocytes # (Auto) 0.6 10 ^3/uL (0-1.3) Eosinophils # (Auto) 0.3 10 ^3/uL (0-0.8) Basophils # (Auto) 0 10 ^3/uL (0-0.2) Nucleated Red Blood Cells 0.1 % Sodium Level 138 mmol/L (136-145) Potassium Level 4.3 mmol/L (3.5-5.1) Chloride Level 105 mmol/L (98-107) Carbon Dioxide Level 25 mmol/L (20-31) Anion Gap 8 (5-15) Blood Urea Nitrogen 22 mg/dL (9-23) Creatinine 1.44 mg/dL (0.700-1.30) Glomerular Filtration Rate Calc 51 mL/min (>90) BUN/Creatinine Ratio 15.3 (10.0-20.0) Serum Glucose 96 mg/dL (74-106) Hemoglobin A1c 5.6 % A1C (<5.7) Calcium Level 9.2 mg/dL (8.7-10.4) Vitamin B12 Level 432 pg/mL (211-911) Vitamin D 25-Hydroxy 20.8 ng/mL (30.0-100) Prothrombin Time 10.4 sec (9.3-11.8) Prothrombin Time INR 0.98 (0.9-1.15) Activated Partial Thromboplast Time 27.9 SEC (24.5-34.5) Total Bilirubin 0.6 mg/dL (0.2-1.0) Aspartate Amino Transferase (AST) 30 U/L (13-40) Alanine Aminotransferase (ALT) 20 U/L (7-40) Alkaline Phosphatase 83 U/L (46-116) Total Protein 6.6 g/dL (5.7-8.2) Albumin 4.0 g/dL (3.2-4.8) Erythrocyte Sedimentation Rate 10 mm/hr (0-20) D-Dimer, Quantitative 0.24 mg/L FEU (0.0-0.49) C-Reactive Protein High Sensitivity 0.16 mg/dL (<1.0) Thyroid Stimulating Hormone (TSH) 1.87 uIU/mL (0.55-4.78) Free Thyroxine (T4) Calculated 1.18 ng/dL (0.89-1.76) Troponin I High Sensitivity 5 ng/L (</=54) Test 12/17/24 12:09 12/17/24 11:57 Urine Color Light-yellow (Yellow) Urine Clarity Clear (Clear) Urine pH 5.0 (5.0-9.0) Urine Specific [place] 1.016 (1.001-1.035) Urine Protein Negative (Negative) Urine Ketones Negative (Negative) Urine Blood Negative /uL (Negative) Urine Nitrite Negative (Negative) Urine Bilirubin Negative (Negative) Urine Urobilinogen Normal mg/dL (Negative) Urine Leukocyte Esterase Negative /uL (Negative) Urine RBC 1 /hpf (0 - 3) Urine Microscopic WBC < 1 /HPF (0-3) Urine Squamous Epithelial Cells None seen /hpf (<5) Urine Uric Acid Crystals Few /hpf (None Seen) Urine Bacteria None seen /hpf (None Seen) Urine Mucus Few (None Seen) Urine Glucose Normal mg/dL (Normal) Urine Opiates Screen Neg (NEGATIVE) Urine Fentanyl Screen Neg (NEGATIVE) Urine Barbiturates Screen Neg (NEGATIVE) Urine Phencyclidine Screen Neg (NEGATIVE) Urine Amphetamines Screen Neg (NEGATIVE) Urine Benzodiazepines Screen Neg (NEGATIVE) Urine Cocaine Screen Neg (NEGATIVE) Urine Cannabinoids Screen Neg (NEGATIVE) B-Type Natriuretic Peptide 86.70 pg/mL (0-100) Other Laboratory Tests 12/22/24 04:44 Brief Hx & Hospital Course: This is a 74-year-old male with a complex medical history including type 2 diabetes mellitus, COPD, prior intestinal tumor removal, mycobacterium bovis infection, BPH, and recurrent pneumonia, who was admitted with progressive shortness of breath, bilateral leg swelling, and retrosternal chest pain. Workup revealed acute on chronic systolic heart failure with reduced LVEF (40%) and new anterior wall hypokinesis. Coronary angiography showed 95% [id number] LAD stenosis, treated with PCI and MEGHANA placement. Post-procedure, chest pain improved and troponin remained negative. COPD was stable, and DVT was ruled out. The patient was managed with dual antiplatelet therapy, high-dose statin, diuretics, and heart failure medications including Entresto, metoprolol, empagliflozin, and spironolactone. Additional diagnoses included GERD, constipation, peripheral artery disease, and hyperlipidemia. He was encouraged to ambulate and follow a cardiac diet. Goals of care were discussed, and the patient remains full code. PCP and Cardiology will follow up post-discharge. This is a 74-year-old male who presents to the ED with complaints of progressive shortness of breath four days previous to his admission, bilateral leg swelling since 2 weeks associated with exertional dyspnea, orthopnea and paroxysmal nocturnal dyspnea. Patient also complains of retrosternal progressive chest pain, intensity 7/10, which is continuous for the past year and a half, radiating to the right upper extremity, aggravates during exercise and alleviates during rest. Patient states that the shortness of breath improves when sitting up. Coronary angiogram done on 02/2022 which is negative for any coronary artery occlusion. Denies any other symptoms Past medical history: Type 2 diabetes mellitus, HFpEF (LVEF in 2022 50%),COPD, intestinal tumor, mycobacterium bovis infection, hernia, BPH, multiple admissions due to pneumonia, required bronchoscopy due to lung mass which was nonmalignant, PSHx: UroLift procedure, intestinal tumor removal 1 year back, hernia surgery 3 years back, coronary angiography in 2021 with nonobstructive coronary arteries, prostatectomy, Family history: Noncontributory Social history: Alcohol use for 50 years, 29 pack year cigarette smoking history, denies recreational drug use Home medication: Entresto, Trelegy Allergic history: Denies Brief hospital course: Unstable angina associated with acute on chronic CHF with initial EKG that showed sinus rhythm with ST alteration, requiring on admission aspirin, statins, sublingual nitroglicerin and IV diuretics. Completed echocardiogram which showed drop on LVEF (40%) and new anterior wall hypokinesis. Cardiology consulted who indicated PCI with placement of stent in mid-distal LAD due to 95% ruptured plaque (rest of anatomy with no significant lesions), and was placed on DAPT and GDMT. During hospitalization, ruled out DVT and severe PAD with lower limb US. Patient hemodynamically stable, asymptomatic, tolerating diet and medication, in conditions to be discharged home. Was granted under optimal medical therapy (DAPT and complete GDMT), gave advice on healthy life style habits and follow up wit PCP and cardiology. DIAGNOSIS # Unstable Angina - status post PCI to mid-distal LAD # Acute on chronic systolic heart failure # COPD without exacerbation # Ruled out DVT # No significant Peripheral artery disease # GERD # Constipation # Type 2 diabetes mellitus # Essential hypertension # Hyperlipidemia Goals of care discussions. More than 19 minute spent with patient. Full code status. Case discussed with Dr. Short, patient and nurses. Physical Examination Constitutional: No: Fever, Chills, Sweats, Weakness, Malaise Eyes: No: Pain, Vision change, Conjunctivae inflammation, Eyelid inflammation, ENT: No: Ear pain, Ear discharge, Nose pain, Nose discharge, Nose congestion Respiratory: Shortness of breath; No: Cough, Dry, SOB with excertion, Wheezing, Hemoptysis, Pleuritic Pain, Sputum, Wheezing, Other Cardiovascular: No: Chest Pain, Palpitations, Orthopnea, Paroxysmal Noc. Dyspnea, mild edema bilateral lower extremity. Puncture site on right radial access with no hematoma or murmur Gastrointestinal: No: Nausea, Vomiting, Abdominal Pain, Diarrhea Genitourinary: No Dysuria, No Frequency, No Incontinence Musculoskeletal: No: other, neck pain, shoulder pain, arm pain, back pain, hand pain, leg pain, foot pain Skin: No: Rash, Lesions, Jaundice, Bruising. Right radial artery catheter insertion site dry, no hematoma, no swelling or redness. Operations or Procedures CLINICAL HISTORY: sob TECHNIQUE: Single view of the chest was obtained. COMPARISON: XY CHEST PORTABLE on DOS: 12/08/22, CT CHEST WITHOUT CONTRAST on DOS: 12/08/22, XY CHEST PORTABLE on DOS: 12/08/22, CT CHEST WITHOUT CONTRAST on DOS: 09/27/22, XY CHEST PORTABLE on DOS: 09/24/22 FINDINGS: The heart size and pulmonary vasculature are normal. The lungs are clear. IMPRESSION: NO ACUTE CARDIOPULMONARY PROCESS. ATED BY: GAVIOTA PINZON MD DICTATED DATE/TIME: 12/17/24 1235 Bilateral lower extremity venous duplex Clinical History: Bilateral leg swelling Comparison: None Findings: Duplex Doppler evaluation of the deep venous systems of both lower extremities from the common femoral veins to the popliteal veins including color Doppler and spectral/pulsed waveform analysis was performed. RIGHT SIDE: The common femoral vein demonstrates appropriate compressibility and waveform variability. There is compressibility/patency of the great saphenous vein at the proximal thigh. The femoral vein demonstrates appropriate compressibility and waveform variability. The deep femoral vein demonstrates appropriate compressibility and waveform variability. The popliteal vein demonstrates appropriate compressibility and waveform variability. There is normal compressibility at the tibioperoneal trunk. LEFT SIDE: The common femoral vein demonstrates appropriate compressibility and waveform variability. There is compressibility/patency of the great saphenous vein at the proximal thigh. The femoral vein demonstrates appropriate compressibility and waveform variability. The deep femoral vein demonstrates appropriate compressibility and waveform variability. The popliteal vein demonstrates appropriate compressibility and waveform variability. There is normal compressibility at the tibioperoneal trunk. IMPRESSION: No right or left femoropopliteal venous thrombosis. If clinical concern/symptoms persist or worsen, short-interval follow-up study is suggested. END IMPRESSION: ATED BY: GAVIOTA PINZON MD DICTATED DATE/TIME: 12/18/24 1323 BILATERAL Lower Extremity Arterial Duplex Date: 12/19/2024 12:24 PM Clinical History: Pain; R/O PAD Comparison: US BILAT LOWER DVT on DOS: 12/18/24, CAROTID DUPLX W COLOR DOP on DOS: 06/17/20 Technique: Duplex Doppler evaluation including color Doppler and spectral/pulsed waveform analysis of the lower extremity arteries was performed. Finding: RIGHT: Peak systolic velocities are as follows: TRAVEL REGISTERED NURSE NICU 122 cm/s Deep femoral 70 cm/s SFA proximal 97 cm/s SFA mid-portion 83 cm/s SFA distal 70 cm/s Popliteal 60 cm/s Posterior tibial 60 cm/s Anterior tibial 38 cm/s Dorsalis pedis 47 cm/s The waveforms are triphasic with diastolic flow. LEFT: Peak systolic velocities are as follows: TRAVEL REGISTERED NURSE NICU 109 cm/s Deep femoral 46 cm/s SFA proximal 98 cm/s SFA mid-portion 85 cm/s SFA distal 65 cm/s Popliteal 71 cm/s Posterior tibial 46 cm/s Anterior tibial 64 cm/s Dorsalis pedis 57 cm/s The waveforms are triphasic with diastolic flow. REFERENCE VALUES, [facility]) vascular Imaging Lab Criteria: Peak systolic velocity ranges (in cm/sec) are as follows: <150 cm/s - <20 % stenosis 150-200 cm/s - 20-49% stenosis 200-300 cm/s - 50-75% stenosis >300 cm/s -> 75% stenosis There is atherosclerotic vascular disease in the bilateral lower extremity arteries. IMPRESSION: There is no evidence for peripheral vascular insufficiency in the right lower extremity. There is no evidence for peripheral vascular insufficiency in the left lower extremity. No significant focal stenosis is identified. ATED BY: PARTHA REYNAGA MD DICTATED DATE/TIME: 12/19/24 1417 EXAM: Two-dimensional and M-mode echocardiogram with Doppler and color Doppler. Blood Pressure: 161/82 mmHg INDICATION R/O stuctural heart disease RISK FACTORS Height: 5'2", Weight: 171 DIMENSIONS LVDd 5.6 (3.8-5.7cm) LA (2D) 4.1 (1.9-4.0cm) Aortic Root 3.6 (2.0- 3.7cm) LVDs 4.4 (2.5-4.0cm) LA (MM) (1.9-4.0cm) Aortic Cusp Exc 2.2 (1.5- 2.0cm) EF (%) 43.0 (55-70%) Rt. Atrium 3.3 (1.9-4.0cm) Asc. Aorta 3.8 cm IVSd 0.8 (0.7-1.1cm) RV (D) (1.8-2.4cm) PWd 0.7 (0.7-1.1cm) Mitral Valve Mitral Mitral Stenosis E wave 0.65m/s MV Mean GR. mmHg A wave 0.71m/s MV Peak GR. mmHg E/A ratio 0.9 2D MVA cm2 DECEL Time 173ms PRESS 1/2 Time ms Aortic Valve Aortic Valve Aortic Stenosis V1 0.57m/s AO Mean GR. 2mmHg V2 1.06m/s AO Peak GR. 4mmHg LVOT Diameter 2.4 (1.8-2.4cm) Doppler KEKE 2.43cm2 AI P 1/2 Time 469.87ms Pulmonic Valve V2 0.66m/s Tricuspid Valve TR Velocity 2.21m/s RVSP 23mmHg Conclusion MODERATE DEGREE HYPOKINESIS OF LV ENTIRE ANTERIOR WALL,APEX AND DISTAL HALF OF IVS LV EF IS IN RANGE OF 40% AND IS REDUCED MILD AORTIC REGURGITATION NORMAL VALVES NORMAL RV FUNCTION SLIGHTLY DILATED LA RVSP IS 23 MM OF HG AND IS NORMAL NO EFFUSION SIGNED BY: RITU MICHELE MD SIGNED DATE/TIME: 12/19/24 0957 Operative Report Operative Report CARDIAC MANAGER PROTEIN PROCEDURE REPORT [place], [place] Date of Service: 12/20/24 Security Vehicle Patrol Officer: Tasha Yoder MD PROCEDURES PERFORMED: Coronary angiogram, left heart catheterization, conscious sedation administration and supervision, less than 15 minutes; fluoroscopy use and interpretation. sedation 15-30 mins, PTCA 1 vessel, PCI 1 vessel PREOPERATIVE DIAGNOSES: ACS POSTOP DIAGNOSIS: 1v cad DESCRIPTION OF PROCEDURE: The patient or appropriate family signed informed consent understanding the risks, benefits and alternatives of the procedure, they wished to proceed. The patient was brought to the cardiac director of labor relations [place]. The patient was prepped in a sterile fashion. Sedation was used per cardiac cath protocol. I administered 2 mL of 2% lidocaine to the right wrist. With an antegrade front wall puncture. I cannulated the right radial artery and placed a 6-Tamazight Glidesheath slender. Next, an intra-arterial spasmolytic was administered. Next, a - 6French Alexander catheter anXB 3.5 guide and were used for coronary angiogram and LVEDP measurement and pressure pullback. At the completion of procedure, all guides and wires were removed, and there were no immediate complications. FINDINGS: RCA: small non domiant vessel off the right sinus of Valsalva, there is no severe flow limiting stenosis. LEFT MAIN: Moderate size left main, it bifurcates into LAD and circumflex. no stenosis CIRCUMFLEX: Moderate caliber vessel coming off the left main with no flow limiting stenosis. LAD: LAD is a moderate caliber vessel coming of the left main. 95% distal LAD hazy ruptured plaque. the prox and mid LAD is very tortous with challenging anatomy. INTERVENTION: We decided to proceed with coronary intervention. I started with a 6F ___XB3.5_ Guide to intubate the __left main . Angiomax bolus and gtt was started. Following this, I decided to wire using an .014Choice PT floppy to cross the culprit lesion with ease. At this time, we performed balloon angioplasty with a _2.5 x 12 mm balloon 12___ ATMS over __15__ seconds with _2_ number of inflations. Following this, I decided to place a stent using a 2.5 x 15 mm onyx____ stent inflated up to __18___ ATMS over 15 seconds with two separate inflations. Following this, the stent balloon removed and angio performed showing 0% residual stenosis. ROSIO pre/post: 3./3 CONCLUSIONS: 1. sp pci to 95% ruptured plaue in mid to distal LAD plaque with MEGHANA PLAN: Aggressive risk factor modification and medical management for the patient. DAPT x 1 year uninterrupted TASHA YODER MD Dec 20, 2024 14:03 DICTATED BY:TASHA YODER MD DICTATED DATE/TIME:12/20/24 9653 Condition at Discharge: Stable Final Diagnosis/Problems List # Unstable Angina - status post PCI to mid-distal LAD # Acute on chronic systolic heart failure # COPD without exacerbation # Ruled out DVT # No significant Peripheral artery disease # GERD # Constipation # Type 2 diabetes mellitus # Essential hypertension # Hyperlipidemia Discharge Disposition: Home Discharge Instruct/Medications Diet: Consistent carbohydrate, Cardiac 2g Na,low cholest Activity: No Restrictions, As Tolerated Follow Up/Referral: Follow up with PCP and [employer] [facility] in 1 week. Medications: as per EMR Scheduled Aspirin (Aspirin Low Dose), 81 MG PO DAILY Atorvastatin Calcium (Atorvastatin Calcium), 40 MG PO HS Clopidogrel Bisulfate (Clopidogrel), 75 MG PO DAILY Empagliflozin (Jardiance), 10 MG PO DAILY Fexofenadine Hcl (Fexofenadine Hcl), 180 MG PO DAILY, (Reported) Zohmbspsopp-Cnkwudcunycq-Wmchl (Trelegy Ellipta 200-62.5-25 Mcg/INH), 1 AER IN DAILY, (Reported) Metoprolol Succinate (Toprol Xl), 25 MG PO DAILY Pantoprazole Sodium Sesquihydr (Pantoprazole Sodium), 40 MG PO DAILY@0600 Sacubitril-Valsartan (Entresto 24-26 mg), 1 TAB PO BID Spironolactone (Aldactone), 25 MG PO DAILY Tobramycin Sulfate (Tobrex), 2 DROP OP QID Scheduled PRN Acetaminophen (Acetaminophen), 500 MG PO Q4HP PRN Albuterol Sulfate (Ventolin Mdi), 180 MCG IN Q4HPRN PRN for SHORTNESS OF BREATH, (Reported) Tramadol Hcl (Tramadol Hcl), 50 MG PO TIDP PRN Discontinued Medications Albuterol Sulfate (Albuterol Sulfate Hfa), 108 MCG IN Q4HP PRN Atorvastatin Calcium (Atorvastatin Calcium), 1 TAB PO DAILY, (Reported) Azithromycin (Azithromycin), 1 TAB PO DAILY Erythromycin (Erythromycin), 1 MG OP QID Levofloxacin (Levaquin 750 mg), 500 MG PO DAILY Ondansetron Odt 4MG Tab (Zofran Po), 4 MG PO Q6HP PRN Sacubitril-Valsartan (Entresto 24-26 mg), 1 TAB PO BID, (Reported) Discharge Statement: "Patient was advised to return to the ER or call 911 if any headaches, dizziness, shortness of breath, chest pain, abdominal pain, bleeding, fevers, or worsening of medical condition. Patient was counseled about treatment plan, medications, possible side effects, patientverbalized understanding. All questions were answered to the best of my ability. This discharge took greater then 30 minutes in planning, reviewing documentation, counseling the patient, and discussing with other team members." ASSESSMENT ASSESSMENT Assessment unstable angina KAYLYN RIVERA RESIDENT Dec 22, 2024 21:49 ABILIO STATON RESIDENT Dec 23, 2024 23:26
== END 2024-12-22 15:31 | disposition home or self-care (01) | DRG 321 ==
LOC: EDBD 11:29 → ER 11:29 → OVERFLOW 23:53 → TELE-WESTW 12-18 17:25
PROVIDERS: ADMIT Student in an Organized Health Care Education/Training Program; ATTEND Internal Medicine
PROC: 027034Z Dilation of Coronary Artery, One Artery with Drug-eluting Intraluminal Device, Percutaneous Approach (ICD-10-PCS; principal; 2024-12-20)
PROC: 4A023N7 Measurement of Cardiac Sampling and Pressure, Left Heart, Percutaneous Approach (ICD-10-PCS; 2024-12-20)
PROC: B211YZZ Fluoroscopy of Multiple Coronary Arteries using Other Contrast (ICD-10-PCS; 2024-12-20)
DX: I25.110 Atherosclerotic heart disease of native coronary artery with unstable angina pectoris (principal); I50.23 Acute on chronic systolic (congestive) heart failure; I24.9 Acute ischemic heart disease, unspecified; I11.0 Hypertensive heart disease with heart failure; J44.89 Other specified chronic obstructive pulmonary disease; E11.51 Type 2 diabetes mellitus with diabetic peripheral angiopathy without gangrene; E78.5 Hyperlipidemia, unspecified; K59.00 Constipation, unspecified; K21.9 Gastro-esophageal reflux disease without esophagitis; N40.0 Benign prostatic hyperplasia without lower urinary tract symptoms; Z91.148 Patient's other noncompliance with medication regimen for other reason; Z87.891 Personal history of nicotine dependence; Z79.899 Other long term (current) drug therapy
CPT/HCPCS: 36415; 71045; 80048; 80053; 80307; 81001; 82306; 82607; 83036; 83880; 84439; 84443; 84484; 85025; 85379; 85610; 85652; 85730; 86141; 86850; 86900; 86901; 92928; 93005; 93306; 93458; 93925; 93970; 94640; 99152; 99291; C1874; G0378; J2250; Q9967

== ENCOUNTER 2024-12-27 23:59 | Inpatient (IN) | payer MEDICARE, MEDICAID ==
[~2024-12-27] VITALS: Ht 165.1 cm; Wt 77.2 kg
[~2024-12-27 23:59] MED LIST changes: -ALBU108A5 IN; +ASPI-325 PO; -ATOR10TA52 PO; +ATOR20TA50 PO; -AZIT500T66 PO; +CLOP75TA70 PO; +EMPA1TAB PO; -ERY05OO OP; -LEVO750T8 PO; +METO-6 PO; +PANT40T PO; +SPIR25TA PO; -ZOFR4T PO
[2024-12-28] VITALS (7 sets, daily range): BP systolic 120–132; BP diastolic 63–74; PULSE 50–88; RESP 10–18; TEMP 97.6–98.4; O2SAT 95–97
[2024-12-28 00:40] LABS: Hematocrit 41.5 % (41.0-53.0); Hemoglobin 14.3 g/dL (13.5-17.5); Mean Corpuscular Hemoglobin 32.0 pg (28.0-32.0); Mean Corpuscular Volume 92.9 fL (80.0-100.0); Nucleated Red Blood Cells % 0.1 %
[2024-12-28 00:50] LABS: Alanine Aminotransferase 17 U/L (7-40); Albumin 4.5 g/dL (3.2-4.8); Alkaline Phosphatase 100 U/L (46-116); Anion Gap 8 (5-15); BUN/Creatinine Ratio 15.6 (10.0-20.0); Bilirubin, Total 0.5 mg/dL (0.2-1.0); Blood Urea Nitrogen 21 mg/dL (9-23); Calcium 9.4 mg/dL (8.7-10.4); Carbon Dioxide 27 mmol/L (20-31); Chloride 105 mmol/L (98-107); Glucose 95 mg/dL (74-106); Potassium 5.0 mmol/L (3.5-5.1); Sodium 140 mmol/L (136-145); Total Protein 7.3 g/dL (5.7-8.2)
--- NOTE | 2024-12-28 02:34 | ED.PDOC ---
History of Present Illness HPI Comments Patient is a 74-year-old male who arrives to the ED today with family for complaints of generalized weakness for the past two days. Patient recently had a valve procedure performed. At this facility and subsequent to his discharge, has been proper. Family states the past few days has been worse. Patient looks moderately toxic at time of arrival. Patient was bradycardic at arrival. Chief Complaint: General Weakness Time Seen by MD: 00:04 Primary Care Provider: FAITH [place] Notes: Nurses Notes Allergies: Coded Allergies: No Known Drug Allergy (Verified Allergy, Unknown, 02/23/21) Home Meds Active Scripts Spironolactone (Aldactone) 25 Mg Tab, 25 MG PO DAILY for 30 Days, #30 TAB Prov:ABILIO STATON [facility] 12/22/24 Sacubitril-Valsartan (Entresto 24-26 mg) 1 Tab Tab, 1 TAB PO BID for 30 Days, #60 TAB Prov:ABILIO STATON [facility] 12/22/24 Pantoprazole Sodium Sesquihydr (Pantoprazole Sodium) 40 Mg Tab, 40 MG PO DAILY@0600 for 30 Days, #30 TAB Prov:ABILIO STATON [facility] 12/22/24 Metoprolol Succinate (Toprol Xl) 50 Mg Tab, 25 MG PO DAILY for 30 Days, #15 TAB Prov:ABILIO STATON [facility] 12/22/24 Empagliflozin (Jardiance) 10 Mg Tab, 10 MG PO DAILY for 30 Days, #30 TAB Prov:ABILIO STATON [facility] 12/22/24 Clopidogrel Bisulfate (CLOPIDOGREL) 75 Mg Tab, 75 MG PO DAILY for 30 Days, #30 TAB Prov:ABILIO STATON [facility] 12/22/24 Atorvastatin Calcium (ATORVASTATIN CALCIUM) 20 Mg Tab, 40 MG PO HS for 30 Days, #60 TAB Prov:ABILIO STATON [facility] 12/22/24 Aspirin (Aspirin Low Dose) 81 Mg Tab, 81 MG PO DAILY for 30 Days, #30 TAB Prov:ABILIO STATON [facility] 12/22/24 Acetaminophen (Acetaminophen) 500 Mg Tab, 500 MG PO Q4HP PRN, #30 TAB Prov:CHRISTY RAWLS PAC 04/29/24 Tobramycin Sulfate (Tobrex) [address], 2 DROP OP QID, #5 ML Prov:NENITA HUTTON PA 04/21/24 Tramadol Hcl (Tramadol Hcl) 50 Mg Tab, 50 MG PO TIDP PRN for 7 Days, #21 TAB Prov:CHRIS RIVERA MD 09/29/22 Reported Medications Fexofenadine Hcl (Fexofenadine Hcl) 60 Mg Tab, 180 MG PO DAILY for 30 Days, MG 09/26/22 Dfcxnqbymqm-Azbxrabjqpug-Tebfe (Trelegy Ellipta 200-62.5-25 Mcg/INH) 1 Aer Aer, 1 AER IN DAILY, AER 03/30/22 Albuterol Sulfate (VENTOLIN MDI) 90 Mcg Ih, 180 MCG IN Q4HPRN PRN for SHORTNESS OF BREATH, INH 02/23/21 Discontinued Reported Medications Atorvastatin Calcium (ATORVASTATIN CALCIUM) 10 Mg Tab, 1 TAB PO DAILY, #30 TAB 5 Refills 09/26/22 Sacubitril-Valsartan (Entresto 24-26 mg) 1 Tab Tab, 1 TAB PO BID, TAB 02/23/21 Discontinued Scripts Ondansetron Odt 4MG Tab (ZOFRAN PO) 4 Mg Tb, 4 MG PO Q6HP PRN, #15 TAB ODT TAB-DISSOLVE IN MOUTH, THEN SWALLOW Prov:CHRISTY RAWLS PAC 04/29/24 Albuterol Sulfate (Albuterol Sulfate Hfa) 108 Mcg/Act Aer, 108 MCG IN Q4HP PRN, #1 AER Prov:CHRISTY RAWLS PAC 04/29/24 Azithromycin (Azithromycin) 500 Mg Tab, 1 TAB PO DAILY for 4 Days, #4 TAB Prov:CHRISTY RAWLS PAC 04/29/24 Erythromycin (Erythromycin) 5 Mg/Gm Oin, 1 MG OP QID for 5 Days, #20 OIN Prov:KARLA MATHEWS MD 03/02/24 Levofloxacin (Levaquin 750 mg) 750 Mg Tab, 500 MG PO DAILY for 7 Days, #7 TAB Prov:CHRIS RIVERA MD 09/29/22 Information Source: Patient, Spouse Mode of Arrival: Ambulatory Severity: Moderate Timing: Days Duration: Since onset Prehospital treatment: None Past Medical History PAST MEDICAL HISTORY: Asthma, CAD, Cancer, COPD, High Lipids Surgical History: Hernia Repair, PTCA, Denies all surgeries Surgical History (Other): Per family, patient had a recent valvular procedure. Family History Family History: Reviewed,noncontributory to illness Social History Smoker: Non-Smoker Alcohol: Denies ETOH Use Drugs: Denies Drug Use Lives In: Home Constitutional: reports: fatigue, weakness; denies: chills, diaphoresis, fever, malaise, sweats, others EENTM: denies: blurred vision, double vision, ear bleeding, ear discharge, ear drainage, ear pain, ear ringing, eye pain, eye redness, hearing loss, mouth pain, mouth swelling, nasal discharge, nose bleeding, nose congestion, nose pain, photophobia, tearing, throat pain, throat swelling, voice changes, others Respiratory: denies: cough, hemoptysis, orthopnea, SOB at rest, shortness of breath, SOB with excertion, stridor, wheezing, others Cardiovascular: denies: chest pain, dizzy spells, diaphoresis, Dyspnea on exertion, edema, irregular heart beat, left arm pain, lightheadedness, palpitations, PND, syncope, others Gastrointestinal: denies: abdomen distended, abdominal pain, blood streaked bowels, constipated, diarrhea, dysphagia, difficulty swallowing, hematemesis, melena, nausea, poor appetite, poor fluid intake, rectal bleeding, rectal pain, vomiting, others Genitourinary: denies: burning, dysuria, flank pain, frequency, hematuria, incontinence, penile discharge, penile sore, pain, testicle pain, testicle s welling, urgency, others Neurological: denies: dizziness, fainting, headache, left sided numbness, left sided weakness, numbness, paresthesia, pre-existing deficit, right sided numbness, right sided weakness, seizure, speech problems, tingling, tremors, weakness, others Musculoskeletal: denies: back pain, gout, joint pain, joint swelling, muscle pain, muscle stiffness, neck pain, others Integumetry: denies: bruises, change in color, change in hair/nails, dryness, laceration, lesions, lumps, rash, wounds, others Allergic/Immunocompromised: denies: Difficulty Healing, Frequent Infections, Hives, Itching, others Hematologic/Lymphatic: denies: anemia, blood clots, easy bleeding, easy bruising, swollen glands, others Endocrine: denies: excessive hunger, excessive sweating, excessive thirst, excessive urination, flushing, intolerance to cold, intolerance to heat, unexplained weight gain, unexplained weight loss, others Psychiatric: denies: anxiety, bipolar disorder, depression, hopeless, panic disorder, schizophrenia, sleepless, suicidal, others Physical Exam General Appearance: Moderate Distress (Patient appears to be in poor overall health.), Normal HEENT: Normal ENT Inspection, Pharynx Normal, TMs Normal Neck: Full Range of Motion, Non-Tender, Normal, Normal Inspection Respiratory: Chest Non-Tender, Lungs Clear, No Accessory Muscle Use, No Respiratory Distress, Normal Breath Sounds Cardiovascular: Bradycardia, No Edema, No JVD, No Murmur, No Gallop, Normal Peripheral Pulses Breast Exam: Deferred Gastrointestinal: No Organomegaly, Non Tender, No Pulsatile Mass, Normal Bowel Sounds, Soft Genitalia: Deferred Pelvic: Deferred Rectal: Deferred Extremities: No calf tenderness, Normal capillary refill, Normal inspection, Normal range of motion, Non-tender, No pedal edema Neurologic: No Motor Deficits, No Sensory Deficits Cerebellar Function: NOT DONE Reflexes: NOT DONE Skin: Dry, Normal Color, Warm Lymphatic: No Adenopathy Was a procedure done? Was a procedure done?: No Differential Dx Considerations may include: Sick sinus syndrome, sepsis, electrolyte abnormality, acute coronary syndromes, viral illness X-Ray, Labs, Meds, VS Vital Signs Date Time Temp Pulse Resp B/P (MAP) Pulse Ox O2 Delivery O2 Flow Rate FiO2 12/28/24 00:03 98.1 54 16 148/74 97 98.1 Lab Test 12/28/24 01:28 12/28/24 00:20 Range/Units Troponin I High Sensitivity 165 *H 177 *H </=54 ng/L White Blood Count 7.0 4.4-10.8 10^3/uL Red Blood Count 4.47 L 4.5-5.90 10^6/uL Hemoglobin 14.3 13.5-17.5 g/dL Hematocrit 41.5 41.0-53.0 % Mean Corpuscular Volume 92.9 80.0-100.0 fL Mean Corpuscular Hemoglobin 32.0 28.0-32.0 pg Mean Corpuscular Hemoglobin Concent 34.4 32.0-36.0 g/dL Red Cell Distribution Width 12.9 11.8-14.3 % Platelet Count 179 140-450 10^3/uL Mean Platelet Volume 8.1 6.9-10.8 fL Neutrophils (%) (Auto) 60.2 37.0-80.0 % Lymphocytes (%) (Auto) 24.2 10.0-50.0 % Monocytes (%) (Auto) 9.2 0.0-12.0 % Eosinophils (%) (Auto) 5.9 0.0-7.0 % Basophils (%) (Auto) 0.5 0.0-2.0 % Neutrophils # (Auto) 4.2 1.6-8.6 10 ^3/uL Lymphocytes # (Auto) 1.7 0.4-5.4 10 ^3/uL Monocytes # (Auto) 0.6 0-1.3 10 ^3/uL Eosinophils # (Auto) 0.4 0-0.8 10 ^3/uL Basophils # (Auto) 0 0-0.2 10 ^3/uL Nucleated Red Blood Cells 0.1 % D-Dimer, Quantitative 0.28 0.0-0.49 mg/L FEU Sodium Level 140 136-145 mmol/L Potassium Level 5.0 3.5-5.1 mmol/L Chloride Level 105 98-107 mmol/L Carbon Dioxide Level 27 20-31 mmol/L Anion Gap 8 5-15 Blood Urea Nitrogen 21 9-23 mg/dL Creatinine 1.35 H 0.700-1.30 mg/dL Glomerular Filtration Rate Calc 55 >90 mL/min BUN/Creatinine Ratio 15.6 10.0-20.0 Serum Glucose 95 74-106 mg/dL Calcium Level 9.4 8.7-10.4 mg/dL Total Bilirubin 0.5 0.2-1.0 mg/dL Aspartate Amino Transferase (AST) 23 13-40 U/L Alanine Aminotransferase (ALT) 17 7-40 U/L Alkaline Phosphatase 100 46-116 U/L B-Type Natriuretic Peptide 70.04 0-100 pg/mL Total Protein 7.3 5.7-8.2 g/dL Albumin 4.5 3.2-4.8 g/dL X-Ray, Labs, Meds, VS Comment All studies performed the ED were evaluated by me personally. Serum laboratories were unremarkable for any significant systemic concern. Patient did display an elevated troponin that was trending down. EKG revealed an atrial flutter state with a rate of 50. RSR in V1 or V2. Nonspecific T-wave abnormalities and lateral leads. QT interval 416.. Patient will be admitted for evaluation of weakness concerns as well as elevated troponins and sinus bradycardia. Time of 1ST Reevaluation: 02:30 Reevaluation 1ST: Improved Consultation: PCP, Cardiology Patient Education/Counseling: Diagnosis, Treatment Family Education/Counseling: Diagnosis, Treatment SEPSIS Sepsis Screen Date sepsis recognized/suspect: Dec 28, 2024 Time Sepsis recognized/suspect: 0003 Recent Procedure: No On Antibiotic Therapy: No Respiratory Rate >20: No Heart Rate >90: No Temp<36 C (96.8 F) or >38.3 C: No SBP <90 or MAP <65 mmHG: No New Acute Mental Status Change: No Is the patient on CPAP, BIPAP,: No Physician Orders Heplock Iv (12/28/24 00:12) Electrocardigram (12/28/24 00:12) Troponin-I Hs (12/28/24 03:12) Sodium Chloride 0.9% (12/28/24 00:15) Heplock Iv (12/28/24 ) Vital Signs Date Time Temp Pulse Resp B/P (MAP) Pulse Ox O2 Delivery O2 Flow Rate FiO2 12/28/24 00:03 98.1 54 16 148/74 97 98.1 Laboratory Tests Test 12/28/24 00:20 White Blood Count 7.0 10^3/uL (4.4-10.8) Departure 1 Departure Time of Disposition: 02:31 Impression: Primary Impression: Generalized weakness Additional Impressions: Elevated troponin Sinus bradycardia Hyperglycemia Atrial flutter Disposition: ADMITTED INPATIENT Condition: Fair Discharged With: Self, Spouse Critical Care Note Critical Care Time?: No Stability Stability form required: No Heart Score Heart Score: Heart Score Response (Comments) Value History Slightly Suspicious 0 EKG Repolarization Disturb 1 Age >65 2 Risk Factors >3 or Hx ASHD 2 Troponin >3 x's Normal limit 2 Total 7 CHRISTY RAWLS PAC Dec 28, 2024 02:34
[2024-12-28] MEDS: MECLIZINE HCL 25 MG TAB PO ONE (02:58)
[2024-12-28] MEDS: SODIUM CHLORIDE 0.9% 1,000 ML IV ONE (02:59)
--- NOTE | 2024-12-28 03:46 | ECG ---
[facility] Test Date: 2024-12-28 Test Time: 02:29:04 Pat Name: DARRIAN SUBRAMANIAN Department: ED Room: 0246T Gender: M Press Helper: STUART : 1950 Requested By: CHRISTY RAWLS Order Number: [id number] Reading MD: Beck Ricardo Measurements Intervals [place] Rate: 50 P: 0 UT: 0 QRS: 1 QRSD: 90 T: 126 QT: 416 QTc: 380 Interpretive Statements Atrial flutter RSR' in V1 or V2, right VCD or RVH Nonspecific T abnormalities, lateral leads Electronically Signed On 01-02-2025 9:24:58 PDT by Beck Ricardo Please click the below link to view image of tracing.
--- NOTE | 2024-12-28 05:25 | DVH ---
CHEST RADIOGRAPH Indication: GEN WEAKNESS Technique: Single frontal view of the chest was obtained COMPARISON: XY CHEST PORTABLE on DOS: 12/17/24, CT CHEST WITHOUT CONTRAST on DOS: 12/03/24, XY CHEST TWO VIEWS ROUTINE on DOS: 05/24/24, CT CHEST WITHOUT CONTRAST on DOS: 12/12/23, XY CHEST PORTABLE on DOS: FINDINGS: Lines and Tubes: None Lungs: Clear Pleura: No effusion. No pneumothorax. Cardiomediastinal contours: Unremarkable Bones: Unremarkable IMPRESSION: No acute disease.
--- NOTE | 2024-12-28 07:11 | DVHHP2 ---
History of Present Illness Reason for Visit: Chest pain and weakness History of Present Illness 74-year-old male past medical history mycobacterium bovis infection BPH pneumonia asthma PID and lower limbs diabetes CAD cancer GERDs COPD intestinal tumor removal hernia repair CHF PTCA recent PCI to mid distal LAD with a stent x1 placed by Dr. Cano chief complaint patient is here with his in speaks with his son over the phone who speaks Upper Sorbian but he stated for two days he had some chest pain and weakness and also complain of some leg swelling. Patient also complain of numbness in his left lower lip. He did state he had some dizziness but no headache he also denies any vomiting no diarrhea. Patient states his symptoms has been worse especially with movement he does not complain of a cough. Was patient states he has been taking his medications as prescribed but he was concerned because he recently had a procedure completed on December 20 2024 it appears he has a left heart catheterization PCI with placement of the stent in the mid distal LAD due to 95% ruptured plaque. When evaluating patient's labs and imaging from ED aspirin was given meclizine normal saline CBC was unremarkable troponin x3 was positive creatinine was elevated at 1.35 otherwise BNP was unremarkable D-dimer was negative chest x-ray was unremarkable with these findings we will admit and ask for Cardiology evaluation. Did review the echocardiogram from December 18, 2024 EF was 40% Past Medical History See HPI above Past Surgical History See HPI above Family History Reviewed, non-contributory to the management of this case. Past Social History The patient lives at home, denies smoking, alcohol or illicit drugs abuse. Review of Systems Constitutional: No: Fever, Chills, Sweats, Weakness, Malaise, Other Eyes: No: Pain, Vision change, Conjunctivae inflammation, Eyelid inflammation, Other, Redness ENT: No: Ear pain, Ear discharge, Nose pain, Nose discharge, Nose congestion, Mouth pain, Mouth swelling, Throat pain, Throat swelling, Other Respiratory: No: Cough, Dry, Shortness of breath, SOB with excertion, Wheezing, Hemoptysis, Pleuritic Pain, Sputum, Wheezing, Other Cardiovascular: Chest Pain; No: Palpitations, Orthopnea, Paroxysmal Noc. Dyspnea, Edema, Lt Headedness, Other Gastrointestinal: No: Nausea, Vomiting, Abdominal Pain, Diarrhea, Constipation, Melena, Hematochezia, Other Genitourinary: No Dysuria, No Frequency, No Incontinence, No Hematuria, No Retention, No Other Musculoskeletal: other; No: neck pain, shoulder pain, arm pain, back pain, hand pain, leg pain, foot pain Skin: No: Rash, Lesions, Jaundice, Bruising, Other Neurological: Numbness (To face); No: Weakness, Incoordination, Change in speech, Confusion, Seizures, Other Allergies: Coded Allergies: No Known Drug Allergy (Verified Allergy, Unknown, 02/23/21) Exam Vital Signs Vital Signs Date Time Temp Pulse Resp B/P (MAP) Pulse Ox O2 Delivery O2 Flow Rate FiO2 12/28/24 05:45 50 10 132/65 (87) 97 12/28/24 03:12 Room Air* 0 21 12/28/24 03:11 97.9 97.9 General Appearance: Alert, Oriented X3, Cooperative, No acute distress HEENT: Atraumatic, PERRLA, EOMI, Mucous membr. moist/pink Respiratory: Clear to auscultation, Normal air movement Cardiovascular: Regular rate, Normal S1, Normal S2, No murmurs Abdominal: Normal bowel sounds, Soft, No tenderness, No hepatospenomegaly, No masses Extremities: No clubbing, No cyanosis, No edema, Normal pulses, No tenderness/swelling Skin: No rashes, No breakdown, No significant lesion Neuro: Normal gait, Normal speech, Strength at 5/5 X4 ext, Normal tone, Sensation intact, Cranial nerves 3-12 NL Psych/Mental Status: Mental status NL, Mood NL Labs/Xrays Chest x-ray unremarkable I reviewed labs, imaging CT scan abdomen pelvis, EKG and all diagnostic studies on this patient from ED records and the medical chart Labs Test 12/28/24 03:29 12/28/24 00:20 Range/Units Troponin I High Sensitivity 171 *H </=54 ng/L White Blood Count 7.0 4.4-10.8 10^3/uL Red Blood Count 4.47 L 4.5-5.90 10^6/uL Hemoglobin 14.3 13.5-17.5 g/dL Hematocrit 41.5 41.0-53.0 % Mean Corpuscular Volume 92.9 80.0-100.0 fL Mean Corpuscular Hemoglobin 32.0 28.0-32.0 pg Mean Corpuscular Hemoglobin Concent 34.4 32.0-36.0 g/dL Red Cell Distribution Width 12.9 11.8-14.3 % Platelet Count 179 140-450 10^3/uL Mean Platelet Volume 8.1 6.9-10.8 fL Neutrophils (%) (Auto) 60.2 37.0-80.0 % Lymphocytes (%) (Auto) 24.2 10.0-50.0 % Monocytes (%) (Auto) 9.2 0.0-12.0 % Eosinophils (%) (Auto) 5.9 0.0-7.0 % Basophils (%) (Auto) 0.5 0.0-2.0 % Neutrophils # (Auto) 4.2 1.6-8.6 10 ^3/uL Lymphocytes # (Auto) 1.7 0.4-5.4 10 ^3/uL Monocytes # (Auto) 0.6 0-1.3 10 ^3/uL Eosinophils # (Auto) 0.4 0-0.8 10 ^3/uL Basophils # (Auto) 0 0-0.2 10 ^3/uL Nucleated Red Blood Cells 0.1 % D-Dimer, Quantitative 0.28 0.0-0.49 mg/L FEU Sodium Level 140 136-145 mmol/L Potassium Level 5.0 3.5-5.1 mmol/L Chloride Level 105 98-107 mmol/L Carbon Dioxide Level 27 20-31 mmol/L Anion Gap 8 5-15 Blood Urea Nitrogen 21 9-23 mg/dL Creatinine 1.35 H 0.700-1.30 mg/dL Glomerular Filtration Rate Calc 55 >90 mL/min BUN/Creatinine Ratio 15.6 10.0-20.0 Serum Glucose 95 74-106 mg/dL Calcium Level 9.4 8.7-10.4 mg/dL Total Bilirubin 0.5 0.2-1.0 mg/dL Aspartate Amino Transferase (AST) 23 13-40 U/L Alanine Aminotransferase (ALT) 17 7-40 U/L Alkaline Phosphatase 100 46-116 U/L B-Type Natriuretic Peptide 70.04 0-100 pg/mL Total Protein 7.3 5.7-8.2 g/dL Albumin 4.5 3.2-4.8 g/dL SEPSIS Sepsis Screen Date sepsis recognized/suspect: Dec 28, 2024 Time Sepsis recognized/suspect: 0003 Recent Procedure: No On Antibiotic Therapy: No Respiratory Rate >20: No Heart Rate >90: No Temp<36 C (96.8 F) or >38.3 C: No SBP <90 or MAP <65 mmHG: No New Acute Mental Status Change: No Is the patient on CPAP, BIPAP,: No Physician Orders Heplock Iv (12/28/24 00:12) Heplock Iv (12/28/24 ) Urinalysis (12/28/24 04:45) Chest Portable (12/28/24 04:45) Vital Signs Date Time Temp Pulse Resp B/P (MAP) Pulse Ox O2 Delivery O2 Flow Rate FiO2 12/28/24 05:45 50 10 132/65 (87) 97 12/28/24 03:12 52 10 97 Room Air* 0 21 12/28/24 03:11 97.9 82 10 119/63 (81) 97 97.9 12/28/24 02:29 50 12/28/24 00:03 98.1 54 16 148/74 97 98.1 Laboratory Tests Test 12/28/24 00:20 White Blood Count 7.0 10^3/uL (4.4-10.8) Medications Medications Dose Ordered Sig/Estella Route Start Time Stop Time Status Last Admin Dose Admin Aspirin 325 mg ONCE ONCE PO 12/28/24 04:45 12/28/24 04:48 DC 12/28/24 05:51 325 MG Meclizine HCl 25 mg ONCE ONCE PO 12/28/24 00:15 12/28/24 00:16 DC 12/28/24 02:58 25 MG Sodium Chloride 1,000 ml @ 150 mls/hr Q6H40M ONCE IV 12/28/24 00:15 12/28/24 06:54 DC 12/28/24 02:59 150 MLS/HR Assessment/Plan Assessment/Plan acute chest pain recent s/p pci with stent placement x1 12/20/24 ekg no stemi trop x3 positive stent placed by Dr. Cano will reconsult ordered atorvastin and asa cont home dose of plavix ddimer negative chest xray normal reviewed echo from 12/18/24 ef 40% acute facial numbness ordered ct scan brain fu results monitor for neuro changes cont asa and atorvastin acute holley monitor for uptrend chronic problems pad to lower limbs mycobacterium bovis infection bph monitor for urinary retention pna asthma cad dm ISS gerds protonix copd hld intestinal tumor removal fen/ppx diet hl scd no gi ppx since no hx of gerds or gi bleed plan admit to tele Plan discussed with: Patient Date of Service: Dec 28, 2024 Billing Provider: DAHIANA MCKEON DNP Common Visit Codes: [id number] INP/OBS CARE (HIGH) DAHIANA MCKEON DNP Dec 28, 2024 07:11
[2024-12-28] MEDS ORDERED: NITROGLYCERIN 0.4 MG SL TAB SL PRN ×2 (09:30)
[2024-12-28] MEDS ORDERED: MORPHINE SULFATE 4 MG/ML SYR/VIAL IV PRN (09:30)
[2024-12-28] MEDS ORDERED: ONDANSETRON HCL 4 MG/2 ML VIAL IV PRN (09:30)
[2024-12-28] MEDS ORDERED: ACETAMINOPHEN 325 MG TAB PO PRN (09:30)
[2024-12-28] MEDS ORDERED: METOPROLOL SUCCINATE XL 50 MG TAB PO SCH (10:00)
[2024-12-28] MEDS: FLUTICASONE UMECLIDINIUM VILANTEROL IN SCH (10:00)
--- NOTE | 2024-12-28 10:06 | DVH ---
CLINICAL HISTORY: lip numbness facial numbness TECHNIQUE: Helical scanning was performed of the head from the skull base to the vertex. Multiplanar reconstructions were performed. This exam was performed according to our departmental dose optimizat ion program. Up-to-date CT equipment and radiation dose reduction techniques are utilized as appropri ate. CTDI 52.7 DLP 1038 COMPARISON: None FINDINGS: There is no evidence for acute intracranial hemorrhage, acute ischemic changes, mass, mass effect, or extra-axial fluid collection. There is no hydrocephalus or midline shift. There is no effacement of the cerebral sulci and basal subarachnoid cisterns. The marina-white matter differentiation is well abril ntained. There is mild brain volume loss and minimal chronic small vessel schema change. There has been bilate ral cataract extraction. The imaged paranasal sinuses are clear. IMPRESSION: NO ACUTE INTRACRANIAL ABNORMALITY SEEN.
[2024-12-28] MEDS: EMPAGLIFLOZIN 10 MG TAB PO SCH (13:26)
[2024-12-28] MEDS: SPIRONOLACTONE 25 MG TAB PO SCH (13:27)
[2024-12-28] MEDS: DOCUSATE SOD 100 MG CAP PO SCH (13:27)
[2024-12-28] MEDS: SACUBITRIL-VALSARTAN 24mg/26mg TAB PO SCH (13:27)
[2024-12-28] MEDS: ASPirin-EC 81 mg tab PO SCH (13:27)
[2024-12-28] MEDS: CLOPIDOGREL BISULFATE 75 MG TAB PO SCH (13:28)
[2024-12-28 14:25] LABS: Urine Protein, UAD Negative (Negative)
--- NOTE | 2024-12-28 15:21 | DVHINCON2 ---
Date Seen: Dec 28, 2024 Referring Physician HELLEN Ayala Reason for Consultation Acute chest pain status post stent placement History of Present Illness This is a Andorran-speaking 74-year-old male patient who presents to the emergency room with chief complaint of dizziness, generalized fatigue, and cough. The patient was recently seen at this facility and underwent a coronary angiogram with left heart catheterization on 12/20/2024 in which a PCI with MEGHANA to 95% ruptured plaque in mid to distal LAD. The patient was discharged on 12/22/2024. He reports that symptoms began one day after discharge. He came to the emergency room for further evaluation. He also mentions chest pain when he coughs. He describes it as provoked with cough, sharp in nature, substernal and nonradiating. Alleviating factors include not coughing. Initial twelve lead electrocardiogram obtained from [facility] reveals sinus bradycardia with a rtifact (machine reads Atrial flutter---reviewed with /it is not Aflutter). Significant past medical history includes coronary artery disease status post PTCA x 1 MEGHANA (on Plavix and aspirin), congestive heart failure, hypertension, dyslipidemia, COPD, intestinal tumor status post removal, mycobacterium Bovis infection, BPH, and tobacco use. The patient follows up with rate examiner in the outpatient setting. Past Medical History Past medical history reviewed. No other significant than mentioned above. Past Surgical History ptca x 1 MEGHANA Partial intestine removal Hernia repair Family History: Patient reports no known family medical history. Family History Family history reviewed. Social History Patient has a 29 pack-year history, quit smoking 30 years ago The patient reports that he used to drink approximately 18 beers per week. Last alcoholic beverage approximately three weeks ago Denies illicit drug use Allergies: Coded Allergies: No Known Drug Allergy (Verified Allergy, Unknown, 02/23/21) Home Meds Active Scripts Spironolactone (Aldactone) 25 Mg Tab, 25 MG PO DAILY for 30 Days, #30 TAB Prov:ABILIO STATON RESIDENT 12/22/24 Sacubitril-Valsartan (Entresto 24-26 mg) 1 Tab Tab, 1 TAB PO BID for 30 Days, #60 TAB Prov:ABILIO STATON RESIDENT 12/22/24 Pantoprazole Sodium Sesquihydr (Pantoprazole Sodium) 40 Mg Tab, 40 MG PO DAILY@0600 for 30 Days, #30 TAB Prov:ABILIO STATON [facility] 12/22/24 Metoprolol Succinate (Toprol Xl) 50 Mg Tab, 25 MG PO DAILY for 30 Days, #15 TAB Prov:ABILIO STATON [facility] 12/22/24 Empagliflozin (Jardiance) 10 Mg Tab, 10 MG PO DAILY for 30 Days, #30 TAB Prov:ABILIO STATON [facility] 12/22/24 Clopidogrel Bisulfate (CLOPIDOGREL) 75 Mg Tab, 75 MG PO DAILY for 30 Days, #30 TAB Prov:ABILIO STATON [facility] 12/22/24 Atorvastatin Calcium (ATORVASTATIN CALCIUM) 20 Mg Tab, 40 MG PO HS for 30 Days, #60 TAB Prov:ABILIO STATON [facility] 12/22/24 Aspirin (Aspirin Low Dose) 81 Mg Tab, 81 MG PO DAILY for 30 Days, #30 TAB Prov:ABILIO STATON [facility] 12/22/24 Acetaminophen (Acetaminophen) 500 Mg Tab, 500 MG PO Q4HP PRN, #30 TAB Prov:CHRISTY RAWLS PAC 04/29/24 Tobramycin Sulfate (Tobrex) [address], 2 DROP OP QID, #5 ML Prov:NENITA HUTTON PA 04/21/24 Tramadol Hcl (Tramadol Hcl) 50 Mg Tab, 50 MG PO TIDP PRN for 7 Days, #21 TAB Prov:CHRIS RIVERA MD 09/29/22 Reported Medications Fexofenadine Hcl (Fexofenadine Hcl) 60 Mg Tab, 180 MG PO DAILY for 30 Days, MG 09/26/22 Tehnbadhwik-Tqiehkjrofqp-Wuxor (Trelegy Ellipta 200-62.5-25 Mcg/INH) 1 Aer Aer, 1 AER IN DAILY, AER 03/30/22 Albuterol Sulfate (VENTOLIN MDI) 90 Mcg Ih, 180 MCG IN Q4HPRN PRN for SHORTNESS OF BREATH, INH 02/23/21 Discontinued Reported Medications Atorvastatin Calcium (ATORVASTATIN CALCIUM) 10 Mg Tab, 1 TAB PO DAILY, #30 TAB 5 Refills 09/26/22 Sacubitril-Valsartan (Entresto 24-26 mg) 1 Tab Tab, 1 TAB PO BID, TAB 02/23/21 Discontinued Scripts Ondansetron Odt 4MG Tab (ZOFRAN PO) 4 Mg Tb, 4 MG PO Q6HP PRN, #15 TAB ODT TAB-DISSOLVE IN MOUTH, THEN SWALLOW Prov:CHRISTY RAWLS PAC 04/29/24 Albuterol Sulfate (Albuterol Sulfate Hfa) 108 Mcg/Act Aer, 108 MCG IN Q4HP PRN, #1 AER Prov:CHRISTY RAWLS PAC 04/29/24 Azithromycin (Azithromycin) 500 Mg Tab, 1 TAB PO DAILY for 4 Days, #4 TAB Prov:CHRISTY RAWLS PAC 04/29/24 Erythromycin (Erythromycin) 5 Mg/Gm Oin, 1 MG OP QID for 5 Days, #20 OIN Prov:KARLA MATHEWS MD 03/02/24 Levofloxacin (Levaquin 750 mg) 750 Mg Tab, 500 MG PO DAILY for 7 Days, #7 TAB Prov:CHRIS RIVERA MD 09/29/22 Home Meds Home medications reviewed. Current Medications Current Medications Medications (Trade) Dose Ordered Sig/Estella Route PRN Reason Start Time Stop Time Status Last Admin Aspirin (Ecotrin Enteric Coated Tablet) 81 mg DAILY PO 12/28/24 10:00 12/28/24 13:27 Atorvastatin Calcium (Lipitor) 40 mg HS PO 12/28/24 22:00 Clopidogrel Bisulfate (Plavix) 75 mg DAILY PO 12/28/24 10:00 12/28/24 13:28 Empaglifozin (Jardiance) 10 mg DAILY PO 12/28/24 10:00 12/28/24 13:26 Metoprolol Succinate (Toprol Xl) 25 mg DAILY PO 12/28/24 10:00 Hold Pantoprazole Sodium (Protonix Tablet) 40 mg DAILY@0600 PO 12/29/24 06:00 Sacubitril/ Valsartan (Entresto 24-26 Mg tab) 1 tab BID PO 12/28/24 10:00 12/28/24 13:27 Spironolactone (Aldactone) 25 mg DAILY PO 12/28/24 10:00 12/28/24 13:27 Patient Own Medication 1 aer DAILY IN 12/28/24 10:00 Morphine Sulfate 2 mg Q30MP PRN IV FOR CHEST PAIN 12/28/24 09:30 Acetaminophen (Tylenol Tablet) 325 mg Q4HP PRN PO FOR HEADACHE 12/28/24 09:30 Docusate Sodium (Colace Capsule) 100 mg DAILY PO 12/28/24 10:00 12/28/24 13:27 Nitroglycerin (Ntrostat Sublingual) 0.4 mg Q5MINP PRN SL FOR CHEST PAIN 12/28/24 09:30 12/28/24 11:03 DC Ondansetron HCl (Zofran) 4 mg Q4HP PRN IV NAUSEA / VOMITING 12/28/24 09:30 Nitroglycerin (Ntrostat Sublingual) 0.4 mg Q5MINP PRN SL FOR CHEST PAIN 12/28/24 09:30 Review of Systems Constitutional: Generalized fatigue Ears, Nose, & Throat: No symptom reported Eyes: No symptom reported Neurological: Dizziness Pulmonary/Respiratory: Cough Cardiovascular: No symptom reported Gastrointestinal: No symptom reported Genitourinary: No symptom reported Musculoskeletal: No symptom reported Skin: No symptom reported Psychiatric: No symptom reported Endocrine: No symptom reported Hematologic/Lymphatic: No symptom reported Vital Signs Vital Signs Date Time Temp Pulse Resp B/P (MAP) Pulse Ox O2 Delivery O2 Flow Rate FiO2 12/28/24 13:00 98.2 50 16 132/74 (93) 96 98.2 12/28/24 11:27 Room Air* 0 21 Physical Exam General Appearance: Cooperative. Well-developed. Well-nourished. No acute distress. Pulmonary/Respiratory: Clear, bilateral breaths sounds. Cardiovascular/Chest: Regular rate and rhythm. Peripheral Pulses: 2+ Radial (R). 2+ Radial (L). 2+ Pedal (R). 2+ Pedal (L) Abdominal Exam: Normal bowel sounds. Ankle Exam: Nonpitting bilateral ankle edema Lower extremities: Negative lower extremity edema Neuro/Mental Status: A/OX4, coherent. Thoughts/Psych: Normal thought pattern. Appropriate mood and affect. Good judgment and insight. Appearance: No acute distress. Skin Exam: Normal inspection. Normal color. Warm and dry. Labs/Diagnostic Data Labs Test 12/28/24 13:31 12/28/24 13:01 12/28/24 03:29 12/28/24 00:20 Range/Units Urine Color Light-yellow Yellow Urine Clarity Clear Clear Urine pH 5.0 5.0-9.0 Urine Specific [place] 1.016 1.001-1.035 Urine Protein Negative Negative Urine Ketones Negative Negative Urine Blood Negative Negative /uL Urine Nitrite Negative Negative Urine Bilirubin Negative Negative Urine Urobilinogen Normal Negative mg/dL Urine Leukocyte Esterase Negative Negative /uL Urine RBC 1 0 - 3 /hpf Urine Microscopic WBC < 1 0-3 /HPF Urine Squamous Epithelial Cells None seen <5 /hpf Urine Bacteria None seen None Seen /hpf Urine Glucose 4+ H Normal mg/dL Troponin I High Sensitivity 106 *H </=54 ng/L Magnesium Level 2.3 1.6-2.6 mg/dL C-Reactive Protein High Sensitivity 0.11 <1.0 mg/dL White Blood Count 7.0 4.4-10.8 10^3/uL Red Blood Count 4.47 L 4.5-5.90 10^6/uL Hemoglobin 14.3 13.5-17.5 g/dL Hematocrit 41.5 41.0-53.0 % Mean Corpuscular Volume 92.9 80.0-100.0 fL Mean Corpuscular Hemoglobin 32.0 28.0-32.0 pg Mean Corpuscular Hemoglobin Concent 34.4 32.0-36.0 g/dL Red Cell Distribution Width 12.9 11.8-14.3 % Platelet Count 179 140-450 10^3/uL Mean Platelet Volume 8.1 6.9-10.8 fL Neutrophils (%) (Auto) 60.2 37.0-80.0 % Lymphocytes (%) (Auto) 24.2 10.0-50.0 % Monocytes (%) (Auto) 9.2 0.0-12.0 % Eosinophils (%) (Auto) 5.9 0.0-7.0 % Basophils (%) (Auto) 0.5 0.0-2.0 % Neutrophils # (Auto) 4.2 1.6-8.6 10 ^3/uL Lymphocytes # (Auto) 1.7 0.4-5.4 10 ^3/uL Monocytes # (Auto) 0.6 0-1.3 10 ^3/uL Eosinophils # (Auto) 0.4 0-0.8 10 ^3/uL Basophils # (Auto) 0 0-0.2 10 ^3/uL Nucleated Red Blood Cells 0.1 % D-Dimer, Quantitative 0.28 0.0-0.49 mg/L FEU Sodium Level 140 136-145 mmol/L Potassium Level 5.0 3.5-5.1 mmol/L Chloride Level 105 98-107 mmol/L Carbon Dioxide Level 27 20-31 mmol/L Anion Gap 8 5-15 Blood Urea Nitrogen 21 9-23 mg/dL Creatinine 1.35 H 0.700-1.30 mg/dL Glomerular Filtration Rate Calc 55 >90 mL/min BUN/Creatinine Ratio 15.6 10.0-20.0 Serum Glucose 95 74-106 mg/dL Calcium Level 9.4 8.7-10.4 mg/dL Total Bilirubin 0.5 0.2-1.0 mg/dL Aspartate Amino Transferase (AST) 23 13-40 U/L Alanine Aminotransferase (ALT) 17 7-40 U/L Alkaline Phosphatase 100 46-116 U/L B-Type Natriuretic Peptide 70.04 0-100 pg/mL Total Protein 7.3 5.7-8.2 g/dL Albumin 4.5 3.2-4.8 g/dL Assessment Pleuritic chest pain NSTEMI, likely type II Coronary artery disease status post PTCA x 1 MEGHANA to LAD (on Plavix and aspirin) Chronic compensated HFrEF, NYHA class II Hypertension Dyslipidemia COPD History of mycobacterium bovis infection History of intestinal tumor status post removal History of tobacco use Alcohol use Plan/Recommendation We will continue with the following plan/recommendations (Dr. Ricardo): Case discussed with . Previous transthoracic echocardiogram from 12/19/2024 reveals an EF of 40% with abnormal wall motion. We will order a limited echocardiogram to re-evaluate ejection fraction and wall motion at this time. Chest pain likely pleuritic in nature given that pain is sharp and only occurs when patient coughs. The patient complains of feeling generalized fatigue as well as dizziness after starting on guideline directed medical therapy for CHF. At this time, we will slowly reintroduce patient's GDMT and monitor for symptoms. Hold beta-john at this time given bradycardia. Hold MRA (spironolactone) given borderline hyperkalemia. Continue with Entresto and Jardiance at this time. Awaiting TSH level. Continue with dual antiplatelet therapy and lipid-lowering agent. Continue with close cardiac surveillance. Thank you for allowing us to care for this patient. Please call with any questions or concerns. Critical care time spent: 44 minutes This medical document was created using an electronic medical record system with voice recognition software and computerized dictation system. Although this document has been carefully reviewed, there might still be some phonetic and typographical errors. Occasional wrong-word or ``sound-alike substitutions may have occurred due to the inherent limitations of voice recognition software. These areas are purely typographical due to imperfections of the software programs and do not reflect any compromise in the patient's medical care. Please read the chart carefully and recognize, using context, where these substitutions have occurred. Plan discussed with: Patient NYHA Physical activity limitations: Class2(Slight)fatigue,sob Date of Service: Dec 28, 2024 Billing Provider: MORENO THORNTON Cardiology Common Codes: 55683-MYMFYJZ INP/OBS CARE (High) Cardiology Consultation Codes: 67019-UMJSDEHGE CONSULT <45MIN MORENO THORNTON Dec 28, 2024 15:20
[2024-12-28 15:52] LABS: Triglycerides 95 mg/dL (< 150)
[2024-12-28 15:55] LABS: Cholesterol 125 mg/dL (< 200); HDL Cholesterol 40 mg/dL (40-59)
[2024-12-28] MEDS: ATORVASTATIN 20 MG TAB PO SCH (21:02)
[2024-12-29] VITALS (7 sets, daily range): BP systolic 104–126; BP diastolic 67–75; PULSE 55–69; RESP 17–18; TEMP 36.6; O2SAT 95–99
[2024-12-29] MEDS: PANTOPRAZOLE 40 MG TAB PO SCH (05:05)
[2024-12-29 07:48] LABS: Hematocrit 40.8 % (41.0-53.0); Hemoglobin 14.4 g/dL (13.5-17.5); Mean Corpuscular Hemoglobin 32.6 pg (28.0-32.0); Mean Corpuscular Volume 92.0 fL (80.0-100.0); Nucleated Red Blood Cells % 0.1 %
[2024-12-29 08:02] LABS: Alanine Aminotransferase 17 U/L (7-40); Albumin 4.1 g/dL (3.2-4.8); Alkaline Phosphatase 85 U/L (46-116); Anion Gap 8 (5-15); BUN/Creatinine Ratio 18.6 (10.0-20.0); Blood Urea Nitrogen 21 mg/dL (9-23); Calcium 9.5 mg/dL (8.7-10.4); Carbon Dioxide 27 mmol/L (20-31); Glucose 86 mg/dL (74-106); Potassium 4.9 mmol/L (3.5-5.1); Sodium 143 mmol/L (136-145); Total Protein 6.5 g/dL (5.7-8.2)
[2024-12-29 08:03] LABS: Bilirubin, Total 0.5 mg/dL (0.2-1.0)
[2024-12-29 08:08] LABS: Chloride 108 mmol/L (98-107)
--- NOTE | 2024-12-29 15:04 | DVHPN2 ---
Eyes: No Pain, No Vision change, No Conjunctivae inflammation, No Eyelid inflammation, No Other, No Redness ENT: No Ear pain, No Ear discharge, No Nose pain, No Nose discharge, No Nose congestion, No Mouth pain, No Mouth swelling, No Throat pain, No Throat swelling, No Other Cardiovascular: Chest Pain; No Palpitations, No Orthopnea, No Paroxysmal Noc. Dyspnea, No Edema, No Lt Headedness, No Other Respiratory: No Cough, No Dry, No Shortness of breath, No SOB with excertion, No Wheezing, No Hemoptysis, No Pleuritic Pain, No Sputum, No Other Gastrointestinal: No Nausea, No Vomiting, No Abdominal Pain, No Diarrhea, No Constipation, No Melena, No Hematochezia, No Other Genitourinary: No Dysuria, No Frequency, No Incontinence, No Hematuria, No Retention, No Other Musculoskeletal: other; No neck pain, No shoulder pain, No arm pain, No back pain, No hand pain, No leg pain, No foot pain Skin: No Rash, No Lesions, No Jaundice, No Bruising, No Other Objective Vitals Vital Signs Date Time Temp Pulse Resp B/P (MAP) Pulse Ox O2 Delivery O2 Flow Rate FiO2 12/29/24 12:38 97.9 62 18 126/72 (90) 99 97.9 12/29/24 08:00 Room Air* 0 21 Intake/Output Intake and Output 12/29/24 07:00 Intake Total 1000 ml Balance 1000 ml Intake Oral 1000 ml # Voids 4 Medications Current Medications Medications Dose Ordered Sig/Estella Route Start Time Stop Time Status Last Admin Dose Admin Aspirin 81 mg DAILY PO 12/28/24 10:00 12/29/24 09:04 81 MG Atorvastatin Calcium 40 mg HS PO 12/28/24 22:00 12/28/24 21:02 40 MG Clopidogrel Bisulfate 75 mg DAILY PO 12/28/24 10:00 12/29/24 09:04 75 MG Empaglifozin 10 mg DAILY PO 12/28/24 10:00 12/29/24 09:03 10 MG Pantoprazole Sodium 40 mg DAILY@0600 PO 12/29/24 06:00 12/29/24 05:05 40 MG Sacubitril/ Valsartan 1 tab BID PO 12/28/24 10:00 12/29/24 09:03 1 TAB Patient Own Medication 1 aer DAILY IN 12/28/24 10:00 Morphine Sulfate 2 mg Q30MP PRN IV 12/28/24 09:30 Acetaminophen 325 mg Q4HP PRN PO 12/28/24 09:30 Docusate Sodium 100 mg DAILY PO 12/28/24 10:00 12/29/24 09:04 100 MG Ondansetron HCl 4 mg Q4HP PRN IV 12/28/24 09:30 Nitroglycerin 0.4 mg Q5MINP PRN SL 12/28/24 09:30 Laboratory Results Laboratory Tests 12/29/24 07:00 Chemistry Test 12/29/24 07:00 Albumin 4.1 g/dL (3.2-4.8) Calcium Level 9.5 mg/dL (8.7-10.4) Total Protein 6.5 g/dL (5.7-8.2) LFT Test 12/29/24 07:00 Alanine Aminotransferase (ALT) 17 U/L (7-40) Alkaline Phosphatase 85 U/L (46-116) Aspartate Amino Transferase (AST) 22 U/L (13-40) Total Bilirubin 0.5 mg/dL (0.2-1.0) Urinalysis Test 12/28/24 13:31 Urine Color Light-yellow (Yellow) Urine Clarity Clear (Clear) Urine pH 5.0 (5.0-9.0) Urine Specific [place] 1.016 (1.001-1.035) Urine Protein Negative (Negative) Urine Ketones Negative (Negative) Urine Blood Negative /uL (Negative) Urine Nitrite Negative (Negative) Urine Bilirubin Negative (Negative) Urine Urobilinogen Normal mg/dL (Negative) Urine Leukocyte Esterase Negative /uL (Negative) Urine RBC 1 /hpf (0 - 3) Urine Microscopic WBC < 1 /HPF (0-3) Urine Squamous Epithelial Cells None seen /hpf (<5) Urine Bacteria None seen /hpf (None Seen) Urine Glucose 4+ mg/dL (Normal) H Microbiology Microbiology Date/Time Source Procedure Growth Status 12/29/24 05:19 Nose MRSA Screen - Final Complete DEANNA KRAUS MD Dec 29, 2024 15:04
--- NOTE | 2024-12-29 15:59 | DVHDS2 ---
Discharge Summary Date of Admission Dec 28, 2024 at 09:27 Date of Discharge: Dec 29, 2024 Admitting Diagnosis Acute chest pain recent s/p pci with stent placement x1 12/20/24 Acute facial numbness Acute holley Peripheral artery disease off lower limbs Mycobacterium bovis infection Benign prostate hyperplasia Pneumonia Asthma Coronary artery disease Diabetes type 2 GERD COPD Hyperlipidemia intestinal tumor removal Labs/Diagnostic Data: Laboratory Results Test 12/29/24 07:00 12/28/24 13:31 12/28/24 13:01 12/28/24 03:29 White Blood Count 4.8 10^3/uL (4.4-10.8) Red Blood Count 4.43 10^6/uL (4.5-5.90) Hemoglobin 14.4 g/dL (13.5-17.5) Hematocrit 40.8 % (41.0-53.0) Mean Corpuscular Volume 92.0 fL (80.0-100.0) Mean Corpuscular Hemoglobin 32.6 pg (28.0-32.0) Mean Corpuscular Hemoglobin Concent 35.4 g/dL (32.0-36.0) Red Cell Distribution Width 12.8 % (11.8-14.3) Platelet Count 159 10^3/uL (140-450) Mean Platelet Volume 8.3 fL (6.9-10.8) Neutrophils (%) (Auto) 55.3 % (37.0-80.0) Lymphocytes (%) (Auto) 27.4 % (10.0-50.0) Monocytes (%) (Auto) 9.2 % (0.0-12.0) Eosinophils (%) (Auto) 7.4 % (0.0-7.0) Basophils (%) (Auto) 0.7 % (0.0-2.0) Neutrophils # (Auto) 2.7 10 ^3/uL (1.6-8.6) Lymphocytes # (Auto) 1.3 10 ^3/uL (0.4-5.4) Monocytes # (Auto) 0.4 10 ^3/uL (0-1.3) Eosinophils # (Auto) 0.4 10 ^3/uL (0-0.8) Basophils # (Auto) 0 10 ^3/uL (0-0.2) Nucleated Red Blood Cells 0.1 % Sodium Level 143 mmol/L (136-145) Potassium Level 4.9 mmol/L (3.5-5.1) Chloride Level 108 mmol/L (98-107) Carbon Dioxide Level 27 mmol/L (20-31) Anion Gap 8 (5-15) Blood Urea Nitrogen 21 mg/dL (9-23) Creatinine 1.13 mg/dL (0.700-1.30) Glomerular Filtration Rate Calc 68 mL/min (>90) BUN/Creatinine Ratio 18.6 (10.0-20.0) Serum Glucose 86 mg/dL (74-106) Calcium Level 9.5 mg/dL (8.7-10.4) Total Bilirubin 0.5 mg/dL (0.2-1.0) Aspartate Amino Transferase (AST) 22 U/L (13-40) Alanine Aminotransferase (ALT) 17 U/L (7-40) Alkaline Phosphatase 85 U/L (46-116) Total Protein 6.5 g/dL (5.7-8.2) Albumin 4.1 g/dL (3.2-4.8) Urine Color Light-yellow (Yellow) Urine Clarity Clear (Clear) Urine pH 5.0 (5.0-9.0) Urine Specific [place] 1.016 (1.001-1.035) Urine Protein Negative (Negative) Urine Ketones Negative (Negative) Urine Blood Negative /uL (Negative) Urine Nitrite Negative (Negative) Urine Bilirubin Negative (Negative) Urine Urobilinogen Normal mg/dL (Negative) Urine Leukocyte Esterase Negative /uL (Negative) Urine RBC 1 /hpf (0 - 3) Urine Microscopic WBC < 1 /HPF (0-3) Urine Squamous Epithelial Cells None seen /hpf (<5) Urine Bacteria None seen /hpf (None Seen) Urine Glucose 4+ mg/dL (Normal) Troponin I High Sensitivity 106 ng/L (</=54) Magnesium Level 2.3 mg/dL (1.6-2.6) C-Reactive Protein High Sensitivity 0.11 mg/dL (<1.0) Triglycerides Level 95 mg/dL (< 150) Cholesterol Level 125 mg/dL (< 200) LDL Cholesterol 72 mg/dL (< 100) HDL Cholesterol 40 mg/dL (40-59) Thyroid Stimulating Hormone (TSH) 1.57 uIU/mL (0.55-4.78) Test 12/28/24 00:20 Erythrocyte Sedimentation Rate 14 mm/hr (0-20) D-Dimer, Quantitative 0.28 mg/L FEU (0.0-0.49) B-Type Natriuretic Peptide 70.04 pg/mL (0-100) Other Laboratory Tests 12/29/24 07:00 Brief Hx & Hospital Course: This is a 74 years old male with past medical history of mycobacterium bovis infection, benign prostate hypertrophy, asthma, GERD, peripheral vascular disease, diabetes type 2, coronary artery disease status post stent and PCI recently on 12/20/2024, GERD, COPD, interstitial tumor removal, hernia repair, congestive heart failure, came into emergency department because chest pain for two days. Chest pain associated with some lower extremity edema. Patient also complained of numbness of his left lower lip. Patient had some dizziness, no vomiting, no diarrhea. The patient recently has a placement of the stent in the mid distal LAD due to 95% rupture plaque. The patient was admitted. Workup was done. Troponin level x3 is unremarkable. BUN creatinine mildly elevated at 1.35. BNP is unremarkable, D-dimer is negative, chest x-ray is unremarkable. Last echo showed EF of 40%. Cardiology see the patient. Recommend continuing medical treatment. No further intervention. Follow up with Cardiology in two weeks as outpatient. So today the patient did not complain of any chest pain, no shortness a breath, lower extremity edema improved. I am discharge the patient home. Advised the patient to follow up with mobile disc jockey per schedule. Follow up with PCP 1-2 weeks. Activity as tolerated. Diet low-salt low- cholesterol carb controlled diet. Physical exam: HEENT: Normocephalic atraumatic pupils equal react to light and accommodation. Extraocular muscles intact, conjunctiva pink, oropharynx moist, no thrush, no exudate. Lymphatic: No lymphadenopathy Cardiovascular exam: S1, S2 was heard. No murmurs, rubs, gallops Lung: Clear on auscultation bilaterally, no wheeze, rale, rhonchi. GI: Abdominal soft, nondistended, nontenderness, positive bowel sounds. Extremity: No crepitus, cyanosis, edema. Pedal pulses present bilateral. Full range of motion. Skin: Normal turgor, no rash. Psych: Alert, oriented x3. Neurology: No focal deficits, cranial nerve II to XII grossly intact. This medical document was created using an electronic medical record system with [email or web address] computerized dictation system. Although this document has been carefully reviewed, there may still be some phonetic and typographical errors. These areas are purely typographical due to imperfections of the software programs, and do not reflect any compromise in the patient's medical care. Condition at Discharge: Stable Final Diagnosis/Problems List Acute chest pain recent s/p pci with stent placement x1 12/20/[address]-elevation [place] type 2 Acute facial numbness Acute holley Peripheral artery disease off lower limbs Mycobacterium bovis infection Benign prostate hyperplasia Pneumonia Asthma Coronary artery disease Diabetes type 2 GERD COPD Hyperlipidemia intestinal tumor removal Discharge Disposition: Home Discharge Instruct/Medications Diet: Cardiac 2g Na,low cholest Activity: No Restrictions, As Tolerated Follow Up/Referral: pcp 1-2 weeks Medications: see med list Scheduled Aspirin (Aspirin Low Dose), 81 MG PO DAILY Atorvastatin Calcium (Atorvastatin Calcium), 40 MG PO HS Clopidogrel Bisulfate (Clopidogrel), 75 MG PO DAILY Empagliflozin (Jardiance), 10 MG PO DAILY Fexofenadine Hcl (Fexofenadine Hcl), 180 MG PO DAILY, (Reported) Wdyijudmynn-Mixsafeymuyt-Mqrii (Trelegy Ellipta 200-62.5-25 Mcg/INH), 1 AER IN DAILY, (Reported) Pantoprazole Sodium Sesquihydr (Pantoprazole Sodium), 40 MG PO DAILY@0600 Sacubitril-Valsartan (Entresto 24-26 mg), 1 TAB PO BID Spironolactone (Aldactone), 25 MG PO DAILY Tobramycin Sulfate (Tobrex), 2 DROP OP QID Scheduled PRN Acetaminophen (Acetaminophen), 500 MG PO Q4HP PRN Albuterol Sulfate (Ventolin Mdi), 180 MCG IN Q4HPRN PRN for SHORTNESS OF BREATH, (Reported) Tramadol Hcl (Tramadol Hcl), 50 MG PO TIDP PRN Discontinued Medications Metoprolol Succinate (Toprol Xl), 25 MG PO DAILY Discharge Statement: "Patient was advised to return to the ER or call 911 if any headaches, dizziness, shortness of breath, chest pain, abdominal pain, bleeding, fevers, or worsening of medical condition. Patient was counseled about treatment plan, medications, possible side effects, patientverbalized understanding. All questions were answered to the best of my ability. This discharge took greater then 30 minutes in planning, reviewing documentation, counseling the patient, and discussing with other team members." ASSESSMENT ASSESSMENT Assessment Chest pain Date of Service: Dec 29, 2024 Billing Provider: DEANNA KRAUS MD Common Visit Codes: 63366-MHC/OBS DISCH DAY >30min DEANNA KRAUS MD Dec 29, 2024 15:59
--- NOTE | 2024-12-29 17:07 | DVHPN2 ---
Consult Progress Note Subjective Patient reports: Feels better Other Systems: Patient in normal sinus rhythm at time of assessment. Denies any cardiac symptoms Objective vital signs Vital Sign Date Time Temp Pulse Resp B/P (MAP) Pulse Ox O2 Delivery O2 Flow Rate FiO2 12/29/24 12:38 97.9 62 18 126/72 (90) 99 97.9 12/29/24 08:00 Room Air* 0 21 Total Intake and Output 12/28/24 12/28/24 12/29/24 15:00 23:00 07:00 Intake Total 800 ml 200 ml Balance 800 ml 200 ml medications Current Medications Medications Dose Ordered Sig/Estella Route Start Time Stop Time Status Last Admin Dose Admin Aspirin 81 mg DAILY PO 12/28/24 10:00 12/29/24 09:04 81 MG Atorvastatin Calcium 40 mg HS PO 12/28/24 22:00 12/28/24 21:02 40 MG Clopidogrel Bisulfate 75 mg DAILY PO 12/28/24 10:00 12/29/24 09:04 75 MG Empaglifozin 10 mg DAILY PO 12/28/24 10:00 12/29/24 09:03 10 MG Pantoprazole Sodium 40 mg DAILY@0600 PO 12/29/24 06:00 12/29/24 05:05 40 MG Sacubitril/ Valsartan 1 tab BID PO 12/28/24 10:00 12/29/24 09:03 1 TAB Patient Own Medication 1 aer DAILY IN 12/28/24 10:00 Morphine Sulfate 2 mg Q30MP PRN IV 12/28/24 09:30 Acetaminophen 325 mg Q4HP PRN PO 12/28/24 09:30 Docusate Sodium 100 mg DAILY PO 12/28/24 10:00 12/29/24 09:04 100 MG Ondansetron HCl 4 mg Q4HP PRN IV 12/28/24 09:30 Nitroglycerin 0.4 mg Q5MINP PRN SL 12/28/24 09:30 Examination: GENERAL:Normal, LUNGS:Normal, CVS:Normal, NEURO:Normal laboratory and microbiology Laboratory Tests 12/29/24 07:00 Test 12/29/24 07:00 Range/Units Serum Glucose 86 74-106 mg/dL Problem List/Assessment/Plan Problem List/Assessment/Plan Pleuritic chest pain NSTEMI, likely type II Coronary artery disease status post PTCA x 1 MEGHANA to LAD (on Plavix and aspirin) Chronic compensated HFrEF, NYHA class II Hypertension Dyslipidemia COPD 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 Ricardo): Case discussed with . Previous transthoracic echocardiogram from 12/19/2024 reveals an EF of 40% with abnormal wall motion. We will order a limited echocardiogram to re-evaluate ejection fraction and wall motion at this time. Chest pain likely pleuritic in nature given that pain is sharp and only occurs when patient coughs. The patient complains of feeling generalized fatigue as well as dizziness after starting on guideline directed medical therapy for CHF. At this time, we will slowly reintroduce patient's GDMT and monitor for symptoms. Hold beta-john at this time given bradycardia. Hold MRA (spironolactone) given borderline hyperkalemia. Continue with Entresto and Jardiance at this time. Continue with dual antiplatelet therapy and lipid- lowering agent. Continue with close cardiac surveillance. Thank you for allowing us to care for this patient. Please call with any questions or concerns. This medical document was created using an electronic medical record system with voice recognition software and computerized dictation system. Although this document has been carefully reviewed, there might still be some phonetic and typographical errors. Occasional wrong-word or ``sound-alike substitutions may have occurred due to the inherent limitations of voice recognition software. These areas are purely typographical due to imperfections of the software programs and do not reflect any compromise in the patient's medical care. Please read the chart carefully and recognize, using context, where these substitutions have occurred. Plan discussed with: Patient Date of Service: Dec 29, 2024 Billing Provider: MORENO THORNTON Common Visit Codes: [id number] INP/OBS CARE(HIGH) MORENO THORNTON Dec 29, 2024 17:07
--- NOTE | 2024-12-29 18:08 | DVHSR ---
APPROVED REPORT EXAM: LIMITED Two-dimensional and M-mode echocardiogram for EF only. Blood Pressure: 132/74 mmHg INDICATION EF/ Wall motion RISK FACTORS Height: 65, Weight: 168 DIMENSIONS EF (%) 54.0 (55-70%)Rt. Atrium (1.9-4.0cm)Asc. Aorta cm Mitral Valve MitralMitral Stenosis E/A ratio0.02D MVAcm2 Other Information Technically limited study due to Eval for EF only. Conclusion Technically limited study. Mild left atrial enlargement. Mild dilation of the sinuses of Valsalva. Mild concentric LVH. Valves appear to be structurally normal. Left ventricular function appears preserved. EF is approximately 50-55%. Normal RV function. Doppler was not obtained. No pericardial effusion masses or vegetations.
== END 2024-12-29 19:20 | disposition home or self-care (01) | DRG 280 ==
LOC: ER 23:59 → OVERFLOW 12-28 09:27 → TELE-EAST 12-28 13:20
PROVIDERS: ADMIT Nurse Practitioner Family; ATTEND Nurse Practitioner Family
DX: I25.10 Atherosclerotic heart disease of native coronary artery without angina pectoris (principal); J18.9 Pneumonia, unspecified organism; I21.A1 Myocardial infarction type 2; I48.92 Unspecified atrial flutter; N17.9 Acute kidney failure, unspecified; J44.0 Chronic obstructive pulmonary disease with (acute) lower respiratory infection; I50.22 Chronic systolic (congestive) heart failure; A15.8 Other respiratory tuberculosis; I11.0 Hypertensive heart disease with heart failure; E78.5 Hyperlipidemia, unspecified; E11.65 Type 2 diabetes mellitus with hyperglycemia; E11.51 Type 2 diabetes mellitus with diabetic peripheral angiopathy without gangrene; N40.0 Benign prostatic hyperplasia without lower urinary tract symptoms; E87.5 Hyperkalemia; K21.9 Gastro-esophageal reflux disease without esophagitis; Z79.82 Long term (current) use of aspirin; Z79.899 Other long term (current) drug therapy; Z79.2 Long term (current) use of antibiotics; Z95.5 Presence of coronary angioplasty implant and graft; Z87.891 Personal history of nicotine dependence
CPT/HCPCS: 36415; 70450; 71045; 80053; 80061; 81001; 83735; 83880; 84443; 84484; 85025; 85379; 85652; 86141; 87081; 93005; 93306; 96360; 96361; G0378